=== PATIENT | female | born 1935 | race American Indian/Alaskan Native ===

== ENCOUNTER 2017-01-20 13:10 | Emergency (ER) | payer MEDICARE ==
[2017-01-20 13:57] LABS: Basophils % (Auto) 0.6 % (0.0-1.8); Eosinophils % (Auto) 4.3 % (0.0-4.3); Hematocrit 41.6 % (30.3-42.9); Hemoglobin 13.9 gm/dl (10.1-14.3); Mean Corpuscular HGB Conc 33 % (30-34); Mean Corpuscular Hemoglobin 33 pg (28-32); Mean Corpuscular Volume 99 fl (79-97); Platelet Count 153 K/mm3 (140-440); Red Blood Count 4.21 M/mm3 (3.65-5.03); Red Cell Distribution Width 13.3 % (13.2-15.2); White Blood Count 6.2 K/mm3 (4.5-11.0)
[2017-01-20 14:14] LABS: Anion Gap 17 mmol/L; BUN/Creatinine Ratio 13; Blood Urea Nitrogen 13 mg/dL (7-17); Calcium 9.7 mg/dL (8.4-10.2); Carbon Dioxide 24 mmol/L (22-30); Chloride 101.6 mmol/L (98-107); Glucose 127 mg/dL (65-100); Potassium 4.3 mmol/L (3.6-5.0); Sodium 138 mmol/L (137-145)
[2017-01-20 15:08] LABS: Bilirubin,Urine NEG (Negative); Blood,Urine SM (Negative); Ketones,Urine NEG (Negative); Leukocyte Esterase,Urine NEG (Negative); Mucus,Urine 1+ /HPF; Nitrite,Urine NEG (Negative); Protein,Urine <15 mg/dL mg/dL (Negative)
[2017-01-20] MEDS ORDERED: NORCO 5/325 PO ONE (15:25)
--- NOTE | 2017-01-20 15:45 | Emergency Department Report ---
HPI - General Chief Complaint: Weakness Time Seen by Provider: 01/20/17 14:08 - HPI HPI: This is an 81 year-old female presents to the emergency department, sent over by her PCP Dr. Piotr العراقي, for evaluation after a fall yesterday. The patient says that she was trying to feed her puppy when she lost her balance and fell over backwards. She landed on her backside but also says that she did hit her head. She thinks she might have lost consciousness for about 1 minute. Since that time she has had a headache and some pain to the buttocks. She was over at the primary care physician's office today and started feeling very dizzy. She has a past medical history of hypertension, hyperlipidemia, coronary artery disease with CABG 5 and one stent placed. 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 She denies any chest pain, shortness of breath, fever, nausea, vomiting. ED Past Medical Hx - Past Medical History Hx Hypertension: Yes Hx Heart Attack/AMI: Yes Hx Congestive Heart Failure: No Hx Deep Vein Thrombosis: No Hx Pulmonary Embolism: No Hx Arthritis: Yes Hx Asthma: No Hx COPD: Yes Hx Tuberculosis: No Hx HIV: No Additional medical history: angina, gout. cad - Surgical History Hx Coronary Stent: Yes Hx Open Heart Surgery: Yes (5 bypass) Hx Pacemaker: No Hx Internal Defibrillator: No Hx Cholecystectomy: Yes Hx Appendectomy: No Hx Breast Surgery: No Additional Surgical History: hysterectomy - Social History Smoking Status: Former Smoker Substance Use Type: Prescribed - Medications Home Medications: Home Medications Medication Instructions Recorded Confirmed Last Taken Type Carvedilol [Coreg] 6.25 mg PO QDAY 12/12/12 08/16/15 11/29/13 History Clopidogrel [Plavix] 75 mg PO QDAY 12/12/12 08/16/15 11/29/13 History Omeprazole [Prilosec] 20 mg PO QDAY 12/12/12 08/16/15 11/29/13 History Rosuvastatin (Nf) [Crestor] 10 mg PO QHS 12/12/12 08/16/15 11/28/13 History Aspirin [Aspirin BABY CHEW TAB] 81 mg PO DAILY 06/19/13 08/16/15 11/29/13 History Fluticasone/Salmeterol [Advair 1 puff IH BID #14 disk.w.dev 12/05/13 08/16/15 Unknown Rx Diskus 250-50 mcg] Ipratropium/Albuterol Sulfate 1 spray IH QID 30 Days aer.w.adap 12/05/13 Unknown Rx [Combivent Respimat] Levofloxacin [Levaquin TAB] 250 mg PO Q24HR #5 tablet 12/05/13 08/16/15 Unknown Rx Loratadine [Claritin] 10 mg PO QDAY #10 tablet 12/05/13 08/16/15 Unknown Rx Prednisone [predniSONE 10 mg 10 mg PO .TAPER #1 tab.ds.pk 12/05/13 08/16/15 Unknown Rx (6-Day Pack, 21 Tabs)] HYDROcodone/APAP 5-325 [[place] 1 each PO Q6HR PRN #14 tablet 11/13/14 08/16/15 Unknown Rx 5-325 mg TAB] Acetaminophen/Codeine [Tylenol 1 tab PO TID #21 tab 11/18/14 08/16/15 Unknown Rx /Codeine # 3 tab] ED Review of Systems ROS: Stated complaint: WEAKNESS Other details as noted in HPI Comment: All other systems reviewed and negative Constitutional: denies: chills, fever Eyes: denies: eye pain, eye discharge, vision change ENT: denies: ear pain, throat pain Respiratory: denies: cough, shortness of breath, wheezing Cardiovascular: denies: chest pain, palpitations Gastrointestinal: denies: abdominal pain, nausea, diarrhea Genitourinary: denies: urgency, dysuria, discharge Musculoskeletal: other (buttock/tailbone pain). denies: back pain Skin: denies: rash, lesions Neurological: headache, other (dizziness). denies: numbness Physical Exam - Physical Exam Vital Signs: Vital Signs 01/20/17 01/20/17 01/20/17 13:14 15:13 15:22 Temperature 97.6 F Pulse Rate 84 81 Respiratory 20 19 Rate Blood Pressure 96/64 O2 Sat by Pulse 97 Oximetry Physical Exam: GENERAL: The patient is well-developed well-nourished. HENT: Normocephalic. Atraumatic. Patient has moist mucous membranes. EYES: Extraocular motions are intact. Pupils equal reactive to light bilaterally. There is fatigable horizontal nystagmus. NECK: Supple. Trachea is midline. CHEST/LUNGS: Clear to auscultation. There is no respiratory distress noted. HEART/CARDIOVASCULAR: Regular. There is no tachycardia. There is no murmur. ABDOMEN: Abdomen is soft, nontender. Patient has normal bowel sounds. There is no abdominal distention. SKIN: Skin is warm and dry. NEURO: The patient is awake, alert, and oriented. The patient is cooperative. The patient has no focal neurologic deficits. The patient has normal speech. Cranial nerves II through XII grossly intact. No pronator drift. GCS of 15. MUSCULOSKELETAL: There is no tenderness or deformity. There is no limitation range of motion. There is no evidence of acute injury. ED Course Vital Signs 01/20/17 01/20/17 01/20/17 13:14 15:13 15:22 Temperature 97.6 F Pulse Rate 84 81 Respiratory 20 19 Rate Blood Pressure 96/64 O2 Sat by Pulse 97 Oximetry - Consultations Consultation #1: I spoke to the [facility] and the patient was accepted by Dr. Jan Perales in transfer to the emergency department. 01/20/17 17:55 ED Medical Decision Making - Lab Data Result diagrams: 01/20/17 13:45 01/20/17 13:45 - EKG Data -: EKG Interpreted by Or EKG shows normal: sinus rhythm, axis (LAD), intervals, QRS complexes (LVH), ST- T waves (T-wave inversions to the anterior leads V2-V4) - EKG Data When compared to previous EKG there are: no significant change Interpretation: unchanged when compared t (08/2015) - Radiology Data Radiology results: report reviewed EXAM: CT CERVICAL SPINE WO CON HISTORY: Fall, neck pain TECHNIQUE: CT cervical spine with reconstructions PRIORS: None. FINDINGS: Vertebral bodies demonstrate normal height and alignment. There is disc space narrowing at C3-C4 and C4-C5. There is disc space narrowing with small marginal osteophyte C6-C7 the facet joints demonstrate normal alignment. The spinous processes are intact. Craniocervical junction is unremarkable. C1 and C2 are intact. IMPRESSION: Degenerative disc disease C3-C4, C4-C5 and C6-C7 No acute traumatic abnormality identified Transcribed By: PETERSON Dictated By: YON SHAW MD Electronically Authenticated By: YON SHAW MD Signed Date/Time: 01/20/17 1311 EXAM: CT HEAD/BRAIN WO CON HISTORY: fall, head trauma, LOC TECHNIQUE: CT head without contrast PRIORS: None. FINDINGS: There is focal increased density along the anterior inferior aspect of the falx consistent with a small and peripheral solution subdural hematoma measuring 0.27 centimeters in transverse diameter. There is an additional small focus of increased density along the posterior falx toward the left measuring 0.34 centimeters in transverse diameter. No acute parenchymal hemorrhage identified. No evidence for midline shift or mass effect. Patchy hypodensities in the supratentorial white matter likely reflect chronic small vessel ischemic changes. The bony calvarium is intact. IMPRESSION: Small frontal and posterior acute subdural parafalcine hematomas Chronic small vessel ischemic changes Transcribed By: PETERSON Dictated By: YON SHAW MD Electronically Authenticated By: YON SHAW MD Signed Date/Time: 01/20/17 1306 - Medical Decision Making Patient presents for evaluation after a fall last night with some loss of consciousness and subsequent continued headache and some dizziness. Labs and EKG have been mostly unremarkable and do not show etiology of her symptoms. However CT of the brain shows a small frontal and posterior acute subdural parafalcine hematoma. For this reason the patient needs to be transferred somewhere there is a neurosurgical service and has been accepted for admission by Dr. Jan Perales to [facility]. The patient and family have been updated about the labs, imaging results and plan for transfer and they understand and agree. - Differential Diagnosis brain bleed, skull fracture, concussion, contusion Critical Care Time: No Critical care attestation.: If time is entered above; I have spent that time in minutes in the direct care of this critically ill patient, excluding procedure time. ED Disposition Clinical Impression: Acute subdural hematoma Fall Qualifiers: Encounter type: initial encounter Qualified Code(s): W19.XXXA - Unspecified fall, initial encounter Hypertension Qualifiers: Hypertension type: essential hypertension Qualified Code(s): I10 - Essential ( primary) hypertension Disposition: DC/TX-70 ANOTHER TYPE HLTHCARE Is pt being admited?: Yes Condition: Stable Instructions: Hypertension (ED) Referrals: SUSAN PAGE MD [Primary Care Provider] - 3-5 Days Time of Disposition: 18:00
--- NOTE | 2017-01-20 17:09 | Cat Scan Report ---
FINAL REPORT EXAM: CT HEAD/BRAIN WO CON HISTORY: fall, head trauma, LOC TECHNIQUE: CT head without contrast PRIORS: None. FINDINGS: There is focal increased density along the anterior inferior aspect of the falx consistent with a small and peripheral solution subdural hematoma measuring 0.27 centimeters in transverse diameter. There is an additional small focus of increased density along the posterior falx toward the left measuring 0.34 centimeters in transverse diameter. No acute parenchymal hemorrhage identified. No evidence for midline shift or mass effect. Patchy hypodensities in the supratentorial white matter likely reflect chronic small vessel ischemic changes. The bony calvarium is intact. IMPRESSION: Small frontal and posterior acute subdural parafalcine hematomas Chronic small vessel ischemic changes
--- NOTE | 2017-01-20 17:14 | Cat Scan Report ---
FINAL REPORT EXAM: CT CERVICAL SPINE WO CON HISTORY: Fall, neck pain TECHNIQUE: CT cervical spine with reconstructions PRIORS: None. FINDINGS: Vertebral bodies demonstrate normal height and alignment. There is disc space narrowing at C3-C4 and C4-C5. There is disc space narrowing with small marginal osteophyte C6-C7 the facet joints demonstrate normal alignment. The spinous processes are intact. Craniocervical junction is unremarkable. C1 and C2 are intact. IMPRESSION: Degenerative disc disease C3-C4, C4-C5 and C6-C7 No acute traumatic abnormality identified
--- NOTE | 2017-01-20 17:24 | Cat Scan Report ---
FINAL REPORT EXAM: CT ABDOMEN PELVIS WO CON HISTORY: Fall, buttock and pelvic pain TECHNIQUE: CT abdomen and pelvis without contrast PRIORS: None. FINDINGS: And noted are coarse linear opacities with multiple cystic changes largely in a peripheral distribution present both lower lobes. Evaluation for solid organ injury is limited due to lack of intravenous contrast No focal abnormality identified within the liver parenchyma. The spleen demonstrates normal size and attenuation. No pancreatic abnormalities seen. Kidneys demonstrate no evidence of hydronephrosis or nephrolithiasis. No ureteral calculus identified. The adrenal glands are unremarkable. Abdominal aorta is normal in caliber. No pathologically enlarged lymph nodes are identified. No signs of free fluid or free air No evidence of small bowel dilatation. Small umbilical hernia noted. Hypertrophic bony changes noted posterior lumbar spine with evidence for prior bone graft. Multilevel degenerative disc changes noted throughout. No acute traumatic skeletal findings identified No pericolonic inflammatory changes are identified. There is an ovoid mixed density structure seen posterior pelvis most likely ovarian in origin 3.1 x 4.1 centimeters. There is small amount of fatty density present. The urinary bladder is unremarkable. 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 Possible 4 centimeter dermoid within the right lower pelvis On noncontrast CT no acute abnormality otherwise identified
--- NOTE | 2017-01-20 17:27 | XRay Report ---
FINAL REPORT EXAM: XR PELVIS 1-2V HISTORY: trauma hip pain TECHNIQUE: AP pelvis PRIORS: None. FINDINGS: No acute fractures are identified. The pubic symphysis and SI joints are intact. No evidence of hip fracture or dislocation. No bony lesions are identified. IMPRESSION: Negative no acute abnormalities seen
--- NOTE | 2017-01-20 17:30 | XRay Report ---
FINAL REPORT EXAM: XR CHEST 1V AP HISTORY: trauma back pain and TECHNIQUE: upright single view chest PRIORS: None. FINDINGS: Cardiac and mediastinal contours are unremarkable. Pulmonary fibrotic interstitial changes noted at the lung bases. Sternotomy wires and surgical clips are present. No pleural fluid collection seen. Pulmonary vasculature is unremarkable. IMPRESSION: Fibrotic interstitial changes at the lung bases Evidence for prior cardiac surgery Otherwise no acute findings
[2017-01-20 18:53] VITALS: BP 153/94
== END 2017-01-20 19:45 | disposition other institution (70) ==
LOC: ED 13:10
DX: S06.5X1A Traumatic subdural hemorrhage with loss of consciousness of 30 minutes or less, initial encounter (principal); I10 Essential (primary) hypertension; I25.2 Old myocardial infarction; M19.90 Unspecified osteoarthritis, unspecified site; J44.9 Chronic obstructive pulmonary disease, unspecified; Z88.0 Allergy status to penicillin; Z88.1 Allergy status to other antibiotic agents; Z88.2 Allergy status to sulfonamides; Z95.818 Presence of other cardiac implants and grafts; W17.89XA Other fall from one level to another, initial encounter; Y93.89 Activity, other specified; Y92.89 Other specified places as the place of occurrence of the external cause; Y99.8 Other external cause status
CPT/HCPCS: 36415; 70450; 71010; 72125; 72170; 74176; 80048; 81001; 85025; 93005; 93010

== ENCOUNTER 2018-02-21 15:52 | Emergency (ER) | payer MEDICARE ==
[2018-02-21] MEDS ORDERED: ASPIRIN PO ONE (16:12)
[2018-02-21 16:39] LABS: Basophils # (Auto) 0.1 K/mm3 (0.0-0.1); Eosinophils # (Auto) 0.2 K/mm3 (0.0-0.4); Eosinophils % (Auto) 6.2 % (0.0-4.3); Hematocrit 42.2 % (30.3-42.9); Hemoglobin 14.4 gm/dl (10.1-14.3); Lymphocytes # (Auto) 1.3 K/mm3 (1.2-5.4); Mean Corpuscular HGB Conc 34 % (30-34); Mean Corpuscular Volume 98 fl (79-97); Monocytes # (Auto) 0.4 K/mm3 (0.0-0.8); Monocytes % (Auto) 10.4 % (0.0-7.3); Platelet Count 155 K/mm3 (140-440); Red Blood Count 4.31 M/mm3 (3.65-5.03); Red Cell Distribution Width 13.9 % (13.2-15.2)
[2018-02-21 17:16] LABS: BUN/Creatinine Ratio 14; Blood Urea Nitrogen 11 mg/dL (7-17); Calcium 9.5 mg/dL (8.4-10.2); Hemolysis Index 12
[2018-02-21] MEDS ORDERED: NACL 0.9% 1000 ML 1,000 ML IV ONE (18:50)
--- NOTE | 2018-02-21 20:29 | XRay Report ---
FINAL REPORT EXAM: XR ABD SERIES W CXR 1V HISTORY: left upper flanl pain COMPARISON: October 2017 chest x-ray. CT abdomen pelvis January 2017. FINDINGS:: Single frontal view of the chest demonstrates heart to be mildly enlarged similar prior s tudy. Prior median sternotomy.. Hazy interstitial densities at the lung bases progressed from prior s tudy. Some this is on a chronic basis related to fibrosis. Mild superimposed edema or pneumonia is no t excluded. No pneumothorax. Supine and upright AP views of the abdomen were obtained. No gross free air. Nonspecific bowel gas pattern. Moderate stool in the colon. No gross pathological calcifications . No mehul free air. IMPRESSION:: Slight progression patchy interstitial densities and linear densities at the lung bases. This may ref lect atelectasis, pneumonia, or edema superimposed are chronic chronic changes of fibrosis at the amy g bases. Nonspecific bowel gas pattern. Moderate stool in the colon.
[2018-02-21] MEDS ORDERED: ULTRAM PO ONE (21:16)
--- NOTE | 2018-02-21 22:46 | Nuclear Medicine Report ---
FINAL REPORT EXAM: NM LUNG SCAN PERF/VENT HISTORY: left upper flank, pleuritic pain with elevated ddi COMPARISON: February 21, 2018. TECHNIQUE: 5 millicuries technetium 99 M MAA administered by IV. 15 millicurie xenon 133 administere d by ventilation. FINDINGS: Relatively homogeneous uptake of tracer in both the ventilation and perfusion portions of the exam. N o mismatched defect. IMPRESSION: Low probability exam for pulmonary embolus.
[2018-02-21 23:17] VITALS: BP 158/76
[2018-02-21 23:32] LABS: Bacteria,Urine 2+ /HPF (Negative); Bilirubin,Urine NEG (Negative); Blood,Urine NEG (Negative); Color,Urine Amber (Yellow); Hyaline Casts,Urine 6 /LPF; Mucus,Urine FEW /HPF; Protein,Urine <15 mg/dL mg/dL (Negative)
--- NOTE | 2018-02-22 | Emergency Department Report ---
ED General Adult HPI - General Chief complaint: Back Pain/Injury Stated complaint: CHANTE/BACK PAIN Time Seen by Provider: 02/21/18 18:43 Source: patient, EMS Mode of arrival: Wheelchair Limitations: No Limitations - History of Present Illness Initial comments: Patient is a 2-year-old asthmatic female who is presented with left flank pain for the past 4 days. Patient states that the pain is constant and hurts worse with movement. Patient denies any falls. Patient has a very mild nonproductive cough several weeks ago however this is resolved. Patient today for her flank pain took nitroglycerin as well as Tessalon cough pills in attempt to make her pain go away. After taking nitroglycerin Tessalon patient did regain to have some dizziness. Patient denies any nausea vomiting fevers chills, cough cold or congestion dysuria or urinary frequency or chest pain. Severity scale (0 -10): 0 - Related Data Home Medications Medication Instructions Recorded Confirmed Last Taken Carvedilol [Coreg] 6.25 mg PO QDAY 12/12/12 10/18/17 10/17/17 09:00 Clopidogrel [Plavix] 75 mg PO QDAY 12/12/12 10/18/17 11/29/13 Omeprazole [Prilosec] 20 mg PO QDAY 12/12/12 10/18/17 10/17/17 09:00 Rosuvastatin (Nf) [Crestor] 10 mg PO QHS 12/12/12 10/18/17 10/17/17 19:00 Aspirin [Aspirin BABY CHEW TAB] 81 mg PO DAILY 06/19/13 10/18/17 10/17/17 09:00 Previous Rx's Medication Instructions Recorded Last Taken Type Ipratropium/Albuterol Sulfate 1 spray IH QID 30 Days aer.w.adap 12/05/13 Unknown Rx [Combivent Respimat] Loratadine [Claritin] 10 mg PO QDAY #10 tablet 12/05/13 10/17/17 09:00 Rx Prednisone [predniSONE 10 mg 10 mg PO .TAPER #1 tab.ds.pk 12/05/13 10/17/17 09:00 Rx (6-Day Pack, 21 Tabs)] Acetaminophen/Codeine [Tylenol 1 tab PO TID #21 tab 11/18/14 10/17/17 09:00 Rx /Codeine # 3 tab] Fluticasone/Salmeterol [Advair 1 puff IH BID #1 disk.w.dev 10/20/17 Unknown Rx Diskus 250-50 mcg] Ciprofloxacin HCl [Cipro] 500 mg PO BID #14 tablet 02/22/18 Unknown Rx traMADol [Ultram] 50 mg PO Q6HR PRN #10 tablet 02/22/18 Unknown Rx Allergies Allergy/AdvReac Type Severity Reaction Status Date / Time Penicillins Allergy Severe EVRYTHING Verified 08/16/15 12:22 SWELLS Sulfa (Sulfonamide Allergy Mild Itching Verified 08/16/15 12:22 Antibiotics) azithromycin [From Zithromax] Allergy Itching Verified 08/16/15 12:22 iv dye Allergy Unknown Uncoded 08/16/15 12:22 ED Review of Systems ROS: Stated complaint: CHANTE/BACK PAIN Other details as noted in HPI Comment: All other systems reviewed and negative ED Past Medical Hx - Past Medical History Hx Hypertension: Yes Hx Heart Attack/AMI: Yes Hx Congestive Heart Failure: No Hx Deep Vein Thrombosis: No Hx Pulmonary Embolism: No Hx Arthritis: Yes Hx Asthma: No Hx COPD: Yes Hx Tuberculosis: No Hx HIV: No Additional medical history: angina, gout. cad - Surgical History Hx Coronary Stent: Yes Hx Open Heart Surgery: Yes (5 bypass) Hx Pacemaker: No Hx Internal Defibrillator: No Hx Cholecystectomy: Yes Hx Appendectomy: No Hx Breast Surgery: No Additional Surgical History: hysterectomy - Social History Smoking Status: Unknown if ever smoked Substance Use Type: None - Medications Home Medications: Home Medications Medication Instructions Recorded Confirmed Last Taken Type Carvedilol [Coreg] 6.25 mg PO QDAY 12/12/12 10/18/17 10/17/17 09:00 History Clopidogrel [Plavix] 75 mg PO QDAY 12/12/12 10/18/17 11/29/13 History Omeprazole [Prilosec] 20 mg PO QDAY 12/12/12 10/18/17 10/17/17 09:00 History Rosuvastatin (Nf) [Crestor] 10 mg PO QHS 12/12/12 10/18/17 10/17/17 19:00 History Aspirin [Aspirin BABY CHEW TAB] 81 mg PO DAILY 06/19/13 10/18/17 10/17/17 09:00 History Ipratropium/Albuterol Sulfate 1 spray IH QID 30 Days aer.w.adap 12/05/13 10/18/17 Unknown Rx [Combivent Respimat] Loratadine [Claritin] 10 mg PO QDAY #10 tablet 12/05/13 10/18/17 10/17/17 09:00 Rx Prednisone [predniSONE 10 mg 10 mg PO .TAPER #1 tab.ds.pk 12/05/13 10/18/17 10/17/17 09:00 Rx (6-Day Pack, 21 Tabs)] Acetaminophen/Codeine [Tylenol 1 tab PO TID #21 tab 11/18/14 10/18/17 10/17/17 09:00 Rx /Codeine # 3 tab] Fluticasone/Salmeterol [Advair 1 puff IH BID #1 disk.w.dev 10/20/17 Unknown Rx Diskus 250-50 mcg] Ciprofloxacin HCl [Cipro] 500 mg PO BID #14 tablet 02/22/18 Unknown Rx traMADol [Ultram] 50 mg PO Q6HR PRN #10 tablet 02/22/18 Unknown Rx ED Physical Exam - General Limitations: No Limitations General appearance: alert, in no apparent distress - Head Head exam: Present: atraumatic, normocephalic - Eye Eye exam: Present: normal appearance - ENT ENT exam: Present: mucous membranes moist - Neck Neck exam: Present: normal inspection - Respiratory Respiratory exam: Present: normal lung sounds bilaterally. Absent: respiratory distress, wheezes, rales, rhonchi - Cardiovascular Cardiovascular Exam: Present: regular rate, normal rhythm. Absent: systolic murmur, diastolic murmur, rubs, gallop - GI/Abdominal GI/Abdominal exam: Present: soft, normal bowel sounds - Extremities Exam Extremities exam: Present: normal inspection - Back Exam Back exam: Present: normal inspection, tenderness, CVA tenderness (L) - Neurological Exam Neurological exam: Present: alert, oriented X3 - Psychiatric Psychiatric exam: Present: normal affect, normal mood - Skin Skin exam: Present: warm, dry, intact, normal color. Absent: rash ED Course Vital Signs 02/21/18 02/21/18 02/21/18 16:01 20:25 23:16 Temperature 97.8 F 98.3 F Pulse Rate 42 L 81 74 Respiratory 16 19 18 Rate Blood Pressure 82/49 Blood Pressure 136/74 158/76 [Left] O2 Sat by Pulse 96 99 99 Oximetry 02/21/18 23:21 Temperature Pulse Rate Respiratory 18 Rate Blood Pressure Blood Pressure [Left] O2 Sat by Pulse 99 Oximetry ED Medical Decision Making - Lab Data Result diagrams: 02/21/18 16:29 02/21/18 16:29 Lab Results 02/21/18 02/21/18 02/21/18 Range/Units 16:29 16:29 18:55 WBC 3.7 L (4.5-11.0) K/mm3 RBC 4.31 (3.65-5.03) M/mm3 Hgb 14.4 H (10.1-14.3) gm/dl Hct 42.2 (30.3-42.9) % MCV 98 H (79-97) fl MCH 34 H (28-32) pg MCHC 34 (30-34) % RDW 13.9 (13.2-15.2) % Plt Count 155 (140-440) K/mm3 Lymph % (Auto) 36.0 H (13.4-35.0) % Andrew % (Auto) 10.4 H (0.0-7.3) % Eos % (Auto) 6.2 H (0.0-4.3) % Baso % (Auto) 3.0 H (0.0-1.8) % Lymph # 1.3 (1.2-5.4) K/mm3 Andrew # 0.4 (0.0-0.8) K/mm3 Eos # 0.2 (0.0-0.4) K/mm3 Baso # 0.1 (0.0-0.1) K/mm3 Seg Neutrophils % 44.4 (40.0-70.0) % Seg Neutrophils # 1.6 L (1.8-7.7) K/mm3 D-Dimer 384.24 H (0-234) ng/mlDDU Sodium 135 L (137-145) mmol/L Potassium 4.0 (3.6-5.0) mmol/L Chloride 103.0 (98-107) mmol/L Carbon Dioxide 22 (22-30) mmol/L Anion Gap 14 mmol/L BUN 11 (7-17) mg/dL Creatinine 0.8 (0.7-1.2) mg/dL Estimated GFR > 60 ml/min BUN/Creatinine Ratio 14 % Glucose 122 H (65-100) mg/dL Calcium 9.5 (8.4-10.2) mg/dL Troponin T < 0.010 (0.00-0.029) ng/mL Urine Color (Yellow) Urine Turbidity (Clear) Urine pH (5.0-7.0) Ur Specific [place] (1.003-1.030) Urine Protein (Negative) mg/dL Urine Glucose (UA) (Negative) mg/dL Urine Ketones (Negative) mg/dL Urine Blood (Negative) Urine Nitrite (Negative) Urine Bilirubin (Negative) Urine Urobilinogen (<2.0) mg/dL Ur Leukocyte Esterase (Negative) Urine WBC (Auto) (0.0-6.0) /HPF Urine RBC (Auto) (0.0-6.0) /HPF U Epithel Cells (Auto) (0-13.0) /HPF Urine Bacteria (Auto) (Negative) /HPF Hyaline Casts /LPF Urine Mucus /HPF 02/21/18 02/21/18 02/21/18 Range/Units 19:15 20:51 22:49 WBC (4.5-11.0) K/mm3 RBC (3.65-5.03) M/mm3 Hgb (10.1-14.3) gm/dl Hct (30.3-42.9) % MCV (79-97) fl MCH (28-32) pg MCHC (30-34) % RDW (13.2-15.2) % Plt Count (140-440) K/mm3 Lymph % (Auto) (13.4-35.0) % Andrew % (Auto) (0.0-7.3) % Eos % (Auto) (0.0-4.3) % Baso % (Auto) (0.0-1.8) % Lymph # (1.2-5.4) K/mm3 Andrew # (0.0-0.8) K/mm3 Eos # (0.0-0.4) K/mm3 Baso # (0.0-0.1) K/mm3 Seg Neutrophils % (40.0-70.0) % Seg Neutrophils # (1.8-7.7) K/mm3 D-Dimer (0-234) ng/mlDDU Sodium (137-145) mmol/L Potassium (3.6-5.0) mmol/L Chloride (98-107) mmol/L Carbon Dioxide (22-30) mmol/L Anion Gap mmol/L BUN (7-17) mg/dL Creatinine (0.7-1.2) mg/dL Estimated GFR ml/min BUN/Creatinine Ratio % Glucose (65-100) mg/dL Calcium (8.4-10.2) mg/dL Troponin T < 0.010 < 0.010 (0.00-0.029) ng/mL Urine Color Judi (Yellow) Urine Turbidity Slightly-cloudy (Clear) Urine pH 5.0 (5.0-7.0) Ur Specific [place] 1.017 (1.003-1.030) Urine Protein <15 mg/dl (Negative) mg/dL Urine Glucose (UA) Neg (Negative) mg/dL Urine Ketones Neg (Negative) mg/dL Urine Blood Neg (Negative) Urine Nitrite Neg (Negative) Urine Bilirubin Neg (Negative) Urine Urobilinogen 4.0 (<2.0) mg/dL Ur Leukocyte Esterase Sm (Negative) Urine WBC (Auto) 23.0 H (0.0-6.0) /HPF Urine RBC (Auto) 20.0 (0.0-6.0) /HPF U Epithel Cells (Auto) 4.0 (0-13.0) /HPF Urine Bacteria (Auto) 2+ (Negative) /HPF Hyaline Casts 6 /LPF Urine Mucus Few /HPF - EKG Data -: EKG Interpreted by Ct - EKG Data 02/21/18 23:58 EKG shows a sinus rhythm with a rate of 83. The axis is normal and intervals are normal as well. Patient has no evidence of ST segment elevation or depression over she does have anterior T-wave inversions. Patient's EKG is interpreted at 1620 - Radiology Data Chest x-ray shows chronic fibrosis is slightly worse from previous x-rays. VQ scan is low probability for PE - Medical Decision Making Patient initially was hypotensive however this resolved on its own. Patient likely hypotensive from an inappropriate use of nitroglycerin. Patient's urinalysis was positive for a urinary tract infection. No other source of patient's pain could be found. Patient will be started on antibiotics will be discharged home. Critical care attestation.: If time is entered above; I have spent that time in minutes in the direct care of this critically ill patient, excluding procedure time. ED Disposition Clinical Impression: UTI (urinary tract infection) Qualifiers: Urinary tract infection type: acute cystitis Hematuria presence: with hematuria Qualified Code(s): N30.01 - Acute cystitis with hematuria Disposition: TO HOME OR SELFCARE Is pt being admited?: No Does the pt Need Aspirin: No Condition: Stable Instructions: Urinary Tract Infection in Women (ED) Referrals: PRIMARY CARE, [Primary Care Provider] - 3-5 Days Time of Disposition: 00:00
== END 2018-02-22 | disposition home or self-care (01) ==
LOC: ED 15:52
DX: N30.01 Acute cystitis with hematuria (principal); I10 Essential (primary) hypertension; I25.2 Old myocardial infarction; M19.90 Unspecified osteoarthritis, unspecified site; J44.9 Chronic obstructive pulmonary disease, unspecified
CPT/HCPCS: 36415; 74022; 78582; 80048; 81001; 84484; 85025; 85379; 93005; 93010; 99285; A9540; A9558

== ENCOUNTER 2018-04-26 09:00 | Inpatient (IN) | payer MEDICARE ==
[2018-04-26] MEDS ORDERED: NACL 0.9% 1000 ML 1,000 ML IV ONE (09:18)
[2018-04-26] MEDS ORDERED: BABY ASPIRIN PO ONE (09:18)
[2018-04-26] MEDS ORDERED: CARDIZEM IV ONE (09:19)
[2018-04-26] MEDS ORDERED: CARDIZEM ONE (09:20)
[2018-04-26] MEDS ORDERED: NACL 0.9% 1000 ML 1,000 ML ONE (09:21)
--- NOTE | 2018-04-26 09:34 | Emergency Department Report ---
ED General Adult HPI - General Stated complaint: CHEST PAIN Time Seen by Provider: 04/26/18 09:17 Source: patient, family - History of Present Illness Initial comments: Patient presents to the ED for Heart Palpitations and chest pain that started yesterday. The patient has a history of 5 vessel bypass and multiple stents. CP is substernal without radiation. The patient denies abdominal pain, shortness breath, or headache. Patient has a history of A. fib and takes medications daily for it -: Sudden Location: chest Radiation: non-radiation Severity scale (0 -10): 4 Quality: aching Consistency: constant Improves with: none Worsens with: none Associated Symptoms: denies other symptoms Treatments Prior to Arrival: none - Related Data Home Medications Medication Instructions Recorded Confirmed Last Taken Carvedilol [Coreg] 6.25 mg PO QDAY 12/12/12 10/18/17 10/17/17 09:00 Clopidogrel [Plavix] 75 mg PO QDAY 12/12/12 10/18/17 11/29/13 Omeprazole [Prilosec] 20 mg PO QDAY 12/12/12 10/18/17 10/17/17 09:00 Rosuvastatin (Nf) [Crestor] 10 mg PO QHS 12/12/12 10/18/17 10/17/17 19:00 Aspirin [Aspirin BABY CHEW TAB] 81 mg PO DAILY 06/19/13 10/18/17 10/17/17 09:00 Previous Rx's Medication Instructions Recorded Last Taken Type Ipratropium/Albuterol Sulfate 1 spray IH QID 30 Days aer.w.adap 12/05/13 Unknown Rx [Combivent Respimat] Loratadine [Claritin] 10 mg PO QDAY #10 tablet 12/05/13 10/17/17 09:00 Rx Prednisone [predniSONE 10 mg 10 mg PO .TAPER #1 tab.ds.pk 12/05/13 10/17/17 09:0 0 Rx (6-Day Pack, 21 Tabs)] Acetaminophen/Codeine [Tylenol 1 tab PO TID #21 tab 11/18/14 10/17/17 09:00 Rx /Codeine # 3 tab] Fluticasone/Salmeterol [Advair 1 puff IH BID #1 disk.w.dev 10/20/17 Unknown Rx Diskus 250-50 mcg] Ciprofloxacin HCl [Cipro] 500 mg PO BID #14 tablet 02/22/18 Unknown Rx traMADol [Ultram] 50 mg PO Q6HR PRN #10 tablet 02/22/18 Unknown Rx Allergies Allergy/AdvReac Type Severity Reaction Status Date / Time Penicillins Allergy Severe EVRYTHING Verified 08/16/15 12:22 SWELLS Sulfa (Sulfonamide Allergy Mild Itching Verified 08/16/15 12:22 Antibiotics) azithromycin [From Zithromax] Allergy Itching Verified 08/16/15 12:22 iv dye Allergy Unknown Uncoded 08/16/15 12:22 ED Review of Systems ROS: Stated complaint: CHEST PAIN Other details as noted in HPI Comment: All other systems reviewed and negative Constitutional: denies: chills, fever Eyes: denies: eye pain, eye discharge, vision change ENT: denies: ear pain, throat pain Respiratory: denies: cough, shortness of breath, wheezing Cardiovascular: chest pain, palpitations Endocrine: no symptoms reported Gastrointestinal: denies: abdominal pain, nausea, diarrhea Genitourinary: denies: urgency, dysuria, discharge Musculoskeletal: denies: back pain, joint swelling, arthralgia Skin: denies: rash, lesions Neurological: denies: headache, weakness, paresthesias Psychiatric: denies: anxiety, depression Hematological/Lymphatic: denies: easy bleeding, easy bruising ED Past Medical Hx - Past Medical History Hx Hypertension: Yes Hx Heart Attack/AMI: Yes Hx Congestive Heart Failure: No Hx Deep Vein Thrombosis: No Hx Pulmonary Embolism: No Hx Arthritis: Yes Hx Asthma: No Hx COPD: Yes Hx Tuberculosis: No Hx HIV: No Additional medical history: angina, gout. cad - Surgical History Hx Coronary Stent: Yes Hx Open Heart Surgery: Yes (5 bypass) Hx Pacemaker: No Hx Internal Defibrillator: No Hx Cholecystectomy: Yes Hx Appendectomy: No Hx Breast Surgery: No Additional Surgical History: hysterectomy - Social History Smoking Status: Unknown if ever smoked Substance Use Type: None - Medications Home Medications: Home Medications Medication Instructions Recorded Confirmed Last Taken Type Carvedilol [Coreg] 6.25 mg PO QDAY 12/12/12 10/18/17 10/17/17 09:00 History Clopidogrel [Plavix] 75 mg PO QDAY 12/12/12 10/18/17 11/29/13 History Omeprazole [Prilosec] 20 mg PO QDAY 12/12/12 10/18/17 10/17/17 09:00 History Rosuvastatin (Nf) [Crestor] 10 mg PO QHS 12/12/12 10/18/17 10/17/17 19:00 History Aspirin [Aspirin BABY CHEW TAB] 81 mg PO DAILY 06/19/13 10/18/17 10/17/17 09:00 History Ipratropium/Albuterol Sulfate 1 spray IH QID 30 Days aer.w.adap 12/05/13 10/18/17 Unknown Rx [Combivent Respimat] Loratadine [Claritin] 10 mg PO QDAY #10 tablet 12/05/13 10/18/17 10/17/17 09:00 Rx Prednisone [predniSONE 10 mg 10 mg PO .TAPER #1 tab.ds.pk 12/05/13 10/18/17 10/17/17 09:00 Rx (6-Day Pack, 21 Tabs)] Acetaminophen/Codeine [Tylenol 1 tab PO TID #21 tab 11/18/14 10/18/17 10/17/17 09:00 Rx /Codeine # 3 tab] Fluticasone/Salmeterol [Advair 1 puff IH BID #1 disk.w.dev 10/20/17 Unknown Rx Diskus 250-50 mcg] Ciprofloxacin HCl [Cipro] 500 mg PO BID #14 tablet 02/22/18 Unknown Rx traMADol [Ultram] 50 mg PO Q6HR PRN #10 tablet 02/22/18 Unknown Rx ED Physical Exam - General General appearance: alert, in no apparent distress - Head Head exam: Present: atraumatic, normocephalic - Eye Eye exam: Present: normal appearance, PERRL, EOMI - ENT ENT exam: Present: mucous membranes moist - Neck Neck exam: Present: normal inspection - Respiratory Respiratory exam: Present: normal lung sounds bilaterally. Absent: respiratory distress, wheezes, rales - Cardiovascular Cardiovascular Exam: Present: normal rhythm, tachycardia, irregular rhythm (irregularly irregular ). Absent: systolic murmur, diastolic murmur, rubs, gallop - GI/Abdominal GI/Abdominal exam: Present: soft, normal bowel sounds. Absent: distended, tenderness - Extremities Exam Extremities exam: Present: normal inspection - Back Exam Back exam: Present: normal inspection - Neurological Exam Neurological exam: Present: alert, oriented X3, CN II-XII intact. Absent: motor sensory deficit - Psychiatric Psychiatric exam: Present: normal affect, normal mood - Skin Skin exam: Present: warm, dry, intact, normal color. Absent: rash ED Course Vital Signs 04/26/18 04/26/18 04/26/18 09:18 09:35 09:45 Temperature 97.5 F L Pulse Rate 156 H 156 H 101 H Respiratory 10 L 18 Rate Blood Pressure 106/59 96/60 Blood Pressure 91/44 [Left] O2 Sat by Pulse 97 96 Oximetry 04/26/18 04/26/18 04/26/18 09:55 10:15 10:45 Temperature Pulse Rate 92 H 100 H Respiratory 18 19 Rate Blood Pressure Blood Pressure 95/55 110/74 [Left] O2 Sat by Pulse 96 98 97 Oximetry 04/26/18 11:15 Temperature Pulse Rate 118 H Respiratory 13 Rate Blood Pressure Blood Pressure 120/84 [Left] O2 Sat by Pulse 99 Oximetry ED Medical Decision Making - Lab Data Result diagrams: 04/26/18 09:25 04/26/18 09:26 Lab Results 04/26/18 04/26/18 04/26/18 Range/Units 09:25 09:26 09:26 WBC 3.7 L (4.5-11.0) K/mm3 RBC 4.15 (3.65-5.03) M/mm3 Hgb 13.8 (10.1-14.3) gm/dl Hct 41.0 (30.3-42.9) % MCV 99 H (79-97) fl MCH 33 H (28-32) pg MCHC 34 (30-34) % RDW 13.9 (13.2-15.2) % Plt Count 156 (140-440) K/mm3 Eos % (Auto) [employer] Seg Neutrophils % [employer] PT 14.5 (12.2-14.9) Sec. INR 1.06 (0.87-1.13) APTT 24.0 L (24.2-36.6) Sec. Sodium 139 (137-145) mmol/L Potassium 4.4 (3.6-5.0) mmol/L Chloride 105.9 (98-107) mmol/L Carbon Dioxide 26 (22-30) mmol/L Anion Gap 12 mmol/L BUN 12 (7-17) mg/dL Creatinine 0.7 (0.7-1.2) mg/dL Estimated GFR > 60 ml/min BUN/Creatinine Ratio 17 % Glucose 119 H (65-100) mg/dL Calcium 9.0 (8.4-10.2) mg/dL Total Bilirubin 0.70 (0.1-1.2) mg/dL AST 45 H (5-40) units/L ALT 26 (7-56) units/L Alkaline Phosphatase 168 H (35-129) units/L Troponin T < 0.010 (0.00-0.029) ng/mL NT-Pro-B Natriuret Pep (0-900) pg/mL Total Protein 7.8 (6.3-8.2) g/dL Albumin 2.8 L (3.9-5) g/dL Albumin/Globulin Ratio 0.6 % Lipase 11 L (13-60) units/L // Range/Units 09:26 WBC (4.5-11.0) K/mm3 RBC (3.65-5.03) M/mm3 Hgb (10.1-14.3) gm/dl Hct (30.3-42.9) % MCV (79-97) fl MCH (28-32) pg MCHC (30-34) % RDW (13.2-15.2) % Plt Count (140-440) K/mm3 Eos % (Auto) Seg Neutrophils % PT (12.2-14.9) Sec. INR (0.87-1.13) APTT (24.2-36.6) Sec. Sodium (137-145) mmol/L Potassium (3.6-5.0) mmol/L Chloride (98-107) mmol/L Carbon Dioxide (22-30) mmol/L Anion Gap mmol/L BUN (7-17) mg/dL Creatinine (0.7-1.2) mg/dL Estimated GFR ml/min BUN/Creatinine Ratio % Glucose (65-100) mg/dL Calcium (8.4-10.2) mg/dL Total Bilirubin (0.1-1.2) mg/dL AST (5-40) units/L ALT (7-56) units/L Alkaline Phosphatase (35-129) units/L Troponin T (0.00-0.029) ng/mL NT-Pro-B Natriuret Pep 59.35 (0-900) pg/mL Total Protein (6.3-8.2) g/dL Albumin (3.9-5) g/dL Albumin/Globulin Ratio % Lipase (13-60) units/L - EKG Data Rate: tachycardia (irregularly irregular) - Radiology Data Radiology results: report reviewed - Medical Decision Making IV bolus Cardizem at 10 mg given Heart rate decreased to 108 And then increase to 125 Second bolus of Cardizem at 10 mg has been discussed and is pending administration upon increase of blood pressure Critical Care Time: Yes Critical care time in (mins) excluding proc time.: 45 Critical care attestation.: If time is entered above; I have spent that time in minutes in the direct care of this critically ill patient, excluding procedure time. ED Disposition Clinical Impression: Afib, Chest pain Disposition: DC-09 OP ADMIT IP TO THIS HOSP Is pt being admited?: Yes Does the pt Need Aspirin: No Condition: Fair Instructions: Chest Pain (ED) Referrals: TADEO DONOVAN MD [Primary Care Provider] - 3-5 Days
[2018-04-26 09:45] LABS: Hemoglobin 13.8 gm/dl (10.1-14.3); Mean Corpuscular HGB Conc 34 % (30-34); Mean Corpuscular Volume 99 fl (79-97); Platelet Count 156 K/mm3 (140-440); Red Blood Count 4.15 M/mm3 (3.65-5.03); Red Cell Distribution Width 13.9 % (13.2-15.2)
[2018-04-26 09:57] LABS: INR 1.06 (0.87-1.13)
--- NOTE | 2018-04-26 10:02 | XRay Report ---
AP CHEST: HISTORY: chest pain Status post CABG. Mild pulmonary venous congestion is suspected. Mild chronic interstitial changes are also noted. No evidence for consolidation, large pleural effusion or pneumothorax. Heart size is within normal limits. IMPRESSION: Mild pulmonary venous congestion.
[2018-04-26 10:04] LABS: Alanine Aminotransferase 26 units/L (7-56); Albumin 2.8 g/dL (3.9-5); BUN/Creatinine Ratio 17; Blood Urea Nitrogen 12 mg/dL (7-17); Hemolysis Index 47
[2018-04-26 11:40] LABS: Total Cells Counted 100
[2018-04-26 11:41] LABS: Large Platelets Rare; Platelet Estimate Consistent w Auto; RBC Morphology Normal
[2018-04-26 12:30] LABS: Bacteria,Urine 2+ /HPF (Negative); Bilirubin,Urine NEG (Negative); Blood,Urine LG (Negative); Hyaline Casts,Urine 11 /LPF; Mucus,Urine 1+ /HPF
[2018-04-26] MEDS ORDERED: MORPHINE IV ONE (12:30)
[2018-04-26 12:31] LABS: RBC,Urine > 182.0 /HPF (0.0-6.0)
[2018-04-26 12:32] LABS: Color,Urine Yellow (Yellow)
[2018-04-26] MEDS ORDERED: MORPHINE ONE (12:35)
[2018-04-26] MEDS ORDERED: CARDIZEM 100 MG in D5W 80 ML IV SCH (18:00)
--- NOTE | 2018-04-26 21:03 | Event Note ---
Date: 04/26/18 See dictated history and physical in the reports A. fib with RVR Hypotension ESRD
[2018-04-26] MEDS ORDERED: DILAUDID IV PRN (21:20)
[2018-04-26] MEDS ORDERED: TYLENOL PO PRN (21:20)
[2018-04-26] MEDS ORDERED: ZOFRAN IV PRN (21:20)
[2018-04-26] MEDS ORDERED: SODIUM CHLORIDE FLUSH SYRINGE 10 ML IV PRN (21:20)
[2018-04-26] MEDS ORDERED: PERCOCET 5/325 PO PRN (21:20)
[2018-04-26] MEDS ORDERED: NON-FORMULARY (Omeprazole [Prilosec] 20 MG) PO SCH (21:30)
[2018-04-26] MEDS ORDERED: PROVENTIL IH PRN (21:55)
[2018-04-26] MEDS ORDERED: NON-FORMULARY (Fluticasone/Salmeterol [Advair Diskus 250-50 Mcg] 1 PUFF) IH SCH (22:00)
[2018-04-26] MEDS ORDERED: CARDIZEM CD PO SCH (22:00)
[2018-04-26] MEDS ORDERED: NON-FORMULARY (Ipratropium/Albuterol Sulfate [Combivent Respimat] 1 SPRAY) IH SCH (22:00)
[2018-04-26] MEDS ORDERED: NON-FORMULARY (Rosuvastatin (Nf) 10 MG) PO SCH (22:00)
[2018-04-26] MEDS ORDERED: LOVENOX SUB-Q SCH ×2 (22:00)
[2018-04-26] MEDS: SODIUM CHLORIDE FLUSH SYRINGE 10 ML IV SCH (23:10)
[2018-04-26] MEDS: NACL 0.9% 1000 ML 1,000 ML IV SCH (23:11)
[2018-04-26] MEDS: PLAVIX PO SCH (23:11)
[2018-04-26] MEDS: COREG PO SCH (23:12)
[2018-04-26] MEDS: PROTONIX PO SCH (23:17)
[2018-04-27] MEDS: DUONEB *Not for PRN Use IH SCH ×4 (02:35→21:23)
[2018-04-27 06:28] LABS: Hematocrit 39.3 % (30.3-42.9); Hemoglobin 13.1 gm/dl (10.1-14.3); Mean Corpuscular HGB Conc 33 % (30-34); Mean Corpuscular Volume 100 fl (79-97); Platelet Count 148 K/mm3 (140-440); Red Blood Count 3.93 M/mm3 (3.65-5.03); Red Cell Distribution Width 14.1 % (13.2-15.2)
[2018-04-27 06:48] LABS: Alanine Aminotransferase 21 units/L (7-56); Albumin 2.7 g/dL (3.9-5); BUN/Creatinine Ratio 18; Blood Urea Nitrogen 11 mg/dL (7-17); Hemolysis Index 19
--- NOTE | 2018-04-27 07:36 | History and Physical Report ---
CHIEF COMPLAINT: Palpitations and chest pain. HISTORY OF PRESENT ILLNESS: The patient is an 82-year-old female with multiple episodes of syncope in the past, hypertension, gastroesophageal reflux disease, and hyperlipidemia, presents with palpitations since yesterday and also chest pain. The patient has extensive history of coronary artery bypass graft and coronary artery disease. The patient has multiple stents. Chest pain is substernal without radiation. No diaphoresis. No shortness of breath. The patient feels palpitation for the last 24 hours. No syncope, no seizures. PAST MEDICAL HISTORY: As mentioned, significant for hypertension, severe coronary artery disease, gastroesophageal reflux disease, and hyperlipidemia. PAST SURGICAL HISTORY: Significant for coronary artery bypass graft. FAMILY HISTORY: Hypertension. SOCIAL HISTORY: Does not smoke. No alcohol, no recreational drugs. REVIEW OF SYSTEMS: Significant for palpitations and chest pain. Otherwise, review of systems negative. A 14-point review of systems done. CURRENT MEDICATIONS: On chart. PHYSICAL EXAMINATION: GENERAL: Elderly female, cooperative during examination. VITAL SIGNS: Blood pressure is 145/83, heart rate is 129, respiratory rate is 16, temperature is 97.5. HEENT: Unremarkable. Pupils equal and reactive. NECK: Supple, no lymphadenopathy, no thyromegaly. LUNGS: Clear to auscultation and percussion. Good air entry. CARDIOVASCULAR SYSTEM: S1, S2 heard. No gallop, no murmur, no rub. Apical impulse in left fifth intercostal space and midclavicular line. ABDOMEN: Soft and benign. No hepatosplenomegaly. No guarding, no rigidity. Hernial orifices are normal. EXTREMITIES: Good pedal pulses. No pedal edema. CENTRAL NERVOUS SYSTEM: Alert and oriented x 4, nonfocal exam. DIAGNOSTIC DATA: EKG shows sinus tachycardia, heart rate of 130 per minute consistent with SVT. LABORATORY DATA: Significant for white count of 3700, H and H are 13.8 and 41.0, platelet count is 156,000. Glucose is 119. A1c is 5.4. AST is 45, alkaline phosphatase is 168, albumin is 2.8. Urine RBCs more than 182. Chest x-ray shows mild pulmonary venous congestion. ASSESSMENT AND PLAN: 1. Supraventricular tachycardia consistent with atrial fibrillation with rapid ventricular response. The patient started on Cardizem drip and also Cardizem CD 120 mg once a day. Cardiology consult requested. Echocardiogram ordered. 2. Chest pain, rule out myocardial infarction. The patient had extensive workup for coronary artery disease. We will defer to Cardiology regarding Lexiscan and the necessity for the Lexiscan. [facility] consulted. 3. Hypertension. Continue Coreg 6.25 q. 12 hours. 4. Coronary artery disease. Continue Plavix and aspirin. 5. Chronic obstructive pulmonary disease. Continue Combivent. 6. Hyperlipidemia. Continue statins. 7. Gastroesophageal reflux disease. Continue Prilosec or alternate PPIs as per the hospital P and T committee. 8. Deep venous thrombosis prophylaxis, Lovenox 40 mg subcutaneous daily. JOB# [id number] VSM/NTS
[2018-04-27] MEDS: PULMICORT IH SCH ×2 (08:27→21:23)
[2018-04-27] MEDS: BROVANA NEBU IH SCH ×2 (08:27→21:23)
[2018-04-27 10:04] LABS: Platelet Estimate Consistent w Auto; RBC Morphology Normal; Total Cells Counted 100
--- NOTE | 2018-04-27 10:10 | Consultation ---
History of Present Illness Consult date: 04/27/18 Consult reason: atrial fibrillation History of present illness: Patient is an 82 year old woman with a history of coronary artery disease with 3 vessel coronary artery bypass surgery in 1999. In 2009, cardiac catheterization revealed all 3 bypass grafts to be patent, with left ventricular ejection fraction normal at 60%. An echocardiogram in 2012 reported a left ventricle ejection fraction maintained at 60%. She had a normal persantine thallium stress test in 2016. Co-morbidities includes chronic lung disease, hypertension and diabetes. She presents to the hospital with palpitations, found to be in rapid atrial fibrillation. This was treated with intravenous Diltiazem. She has since reverted to a stable sinus rhythm on telemetry. Patient denies chest pain and unusual shortness of breath. Medications and Allergies Allergies Allergy/AdvReac Type Severity Reaction Status Date / Time Penicillins Allergy Severe EVRYTHING Verified 08/16/15 12:22 SWELLS Sulfa (Sulfonamide Allergy Mild Itching Verified 08/16/15 12:22 Antibiotics) azithromycin [From Zithromax] Allergy Itching Verified 08/16/15 12:22 iv dye Allergy Unknown Uncoded 08/16/15 12:22 Home Medications Medication Instructions Recorded Confirmed Last Taken Type Carvedilol [Coreg] 3.125 mg PO QDAY 12/12/12 04/26/18 10/17/17 09:00 History Clopidogrel [Plavix] 75 mg PO QDAY 12/12/12 04/26/18 11/29/13 History Omeprazole [Prilosec] 20 mg PO QDAY 12/12/12 04/26/18 10/17/17 09:00 History Rosuvastatin (Nf) [Crestor] 10 mg PO QHS 12/12/12 04/26/18 10/17/17 19:00 His tory Aspirin [Aspirin BABY CHEW TAB] 81 mg PO DAILY 06/19/13 04/26/18 10/17/17 09:00 History Ipratropium/Albuterol Sulfate 1 spray IH QID 30 Days aer.w.adap 12/05/13 04/26/18 Unknown Rx [Combivent Respimat] Fluticasone/Salmeterol [Advair 1 puff IH BID #1 disk.w.dev 10/20/17 04/26/18 Unk nown Rx Diskus 250-50 mcg] Active Meds: Active Medications Acetaminophen (Tylenol) 650 mg PO Q4H PRN PRN Reason: Pain MILD(1-3)/Fever >100.5/BENNETT Albuterol (Proventil) 2.5 mg IH Q3HRT PRN PRN Reason: Shortness Of Breath Albuterol/Ipratropium (Duoneb *Not For Prn Use*) 1 ampul IH Q6HRT [facility] Last Admin: 04/27/18 08:31 Dose: 1 ampul Documented by: Arformoterol Tartrate (Brovana Nebu) 15 mcg IH Q12HRT [facility] Last Admin: 04/27/18 08:27 Dose: 15 mcg Documented by: Aspirin (Baby Aspirin) 81 mg PO DAILY [facility] Atorvastatin Calcium (Lipitor) 20 mg PO QHS [facility] Last Admin: 04/26/18 23:12 Dose: 20 mg Documented by: Budesonide (Pulmicort) 0.5 mg IH Q12HRT [facility] Last Admin: 04/27/18 08:27 Dose: 0.5 mg Documented by: Carvedilol (Coreg) 3.125 mg PO QDAY [facility] Last Admin: 04/26/18 23:12 Dose: 3.125 mg Documented by: Clopidogrel Bisulfate (Plavix) 75 mg PO QDAY [facility] Last Admin: 04/26/18 23:11 Dose: 75 mg Documented by: Diltiazem HCl (Cardizem Cd) 120 mg PO QDAY [facility] Last Admin: 04/26/18 23:17 Dose: Not Given Documented by: Enoxaparin Sodium (Lovenox) 40 mg SUB-Q QDAY@2200 [facility] Last Admin: 04/26/18 23:12 Dose: 40 mg Documented by: Hydromorphone HCl (Dilaudid) 0.5 mg IV Q3H PRN PRN Reason: Pain , Severe (7-10) Diltiazem HCl 100 mg/ Dextrose 100 mls @ 5 mls/hr IV DIRECT [facility]; Protocol Last Admin: 04/26/18 23:10 Dose: 5 mg/hr, 5 mls/hr Documented by: Sodium Chloride (Nacl 0.9% 1000 Ml) 1,000 mls @ 75 mls/hr IV DIRECT [facility] Last Admin: 04/26/18 23:11 Dose: 75 mls/hr Documented by: Ondansetron HCl (Zofran) 4 mg IV Q8H PRN PRN Reason: Nausea And Vomiting Oxycodone/Acetaminophen (Percocet 5/325) 1 tab PO Q6H PRN PRN Reason: Pain, Moderate (4-6) Pantoprazole Sodium (Protonix) 20 mg PO QDAY [facility] Last Admin: 04/26/18 23:17 Dose: 20 mg Documented by: Sodium Chloride (Sodium Chloride Flush Syringe 10 Ml) 10 ml IV BID [facility] Last Admin: 04/26/18 23:10 Dose: 10 ml Documented by: Sodium Chloride (Sodium Chloride Flush Syringe 10 Ml) 10 ml IV PRN PRN PRN Reason: LINE FLUSH Physical Examination Vital Signs Temp Pulse Resp BP Pulse Ox 97.5 F L 156 H 10 L 106/59 97 04/26/18 09:18 04/26/18 09:18 04/26/18 09:18 04/26/18 09:18 04/26/18 09:18 General appearance: no acute distress HEENT: Positive: PERRL Cardiac: Positive: Reg Rate and Rhythm Lungs: Positive: Decreased Breath Sounds Results 04/27/18 05:29 04/27/18 05:29 Cardiac Enzymes 04/26/18 04/27/18 Range/Units 09:26 05:29 AST 45 H 33 (5-40) units/L CBC 04/26/18 04/27/18 Range/Units 09:25 05:29 WBC 3.7 L 4.6 (4.5-11.0) K/mm3 RBC 4.15 3.93 (3.65-5.03) M/mm3 Hgb 13.8 13.1 (10.1-14.3) gm/dl Hct 41.0 39.3 (30.3-42.9) % Plt Count 156 148 (140-440) K/mm3 Comprehensive Metabolic Panel 04/26/18 04/27/18 Range/Units 09:26 05:29 Sodium 141 (137-145) mmol/L Potassium 4.0 (3.6-5.0) mmol/L Chloride 109.7 H (98-107) mmol/L Carbon Dioxide 22 (22-30) mmol/L BUN 11 (7-17) mg/dL Creatinine 0.6 L (0.7-1.2) mg/dL Glucose 104 H (65-100) mg/dL Calcium 9.0 (8.4-10.2) mg/dL AST 45 H 33 (5-40) units/L ALT 21 (7-56) units/L Alkaline Phosphatase 152 H (35-129) units/L Total Protein 6.7 (6.3-8.2) g/dL Albumin 2.7 L (3.9-5) g/dL Assessment and Plan New onset Afib reverted to sinus rhythm Hx of CAD with 3 vessel bypass surgery in 1999. LHC in 2009 revealed all 3 bypass grafts to be patent, with left ventricular ejection fraction normal at 60%. an echocardiogram in 2012 reported a left ventricle ejection fraction maintained at 60%. Normal persantine thallium stress test in 2016. Chronic lung disease Hypertension Diabetes Recommend: Check TSH and magnesium. Repeat 12 lead EKG. Continue Diltiazem for suppression of paroxysmal afib.
[2018-04-27] MEDS: PLAVIX PO SCH (12:26)
[2018-04-27] MEDS: COREG PO SCH (12:26)
[2018-04-27] MEDS: CARDIZEM CD PO SCH (12:26)
[2018-04-27] MEDS: PROTONIX PO SCH (12:26)
[2018-04-27] MEDS: BABY ASPIRIN PO SCH (12:27)
--- NOTE | 2018-04-27 14:46 | Progress Note ---
Assessment and Plan New onset Afib reverted to sinus rhythm normal TSH initiated on eliquis for oral anticoagulation therapy Hx of CAD with 3 vessel bypass surgery in 1999. LHC in 2009 revealed all 3 bypass grafts to be patent, with left ventricular ejection fraction normal at 60%. an echocardiogram in 2012 reported a left ventricle ejection fraction maintained at 60%. Normal persantine thallium stress test in 2016. Chronic lung disease Hypertension Diabetes Recommend: Continue Cardizem and Eliqius therapy for paroxysmal afib. Subjective Date of service: 04/27/18 Principal diagnosis: Afib with Rvr Interval history: Doing well Objective - Constitutional Vitals: Vital Signs - 12hr 04/27/18 04/27/18 04:44 08:33 Temperature 97.4 F L Pulse Rate 86 Pulse Rate [ 74 Bilateral] Pulse Rate [ 80 Throughout] Respiratory 16 Rate Respiratory 16 Rate [Bilateral ] Respiratory 18 Rate [ Throughout] Blood Pressure 104/61 O2 Sat by Pulse 98 Oximetry General appearance: Present: no acute distress, well-nourished - EENT Eyes: PERRL, EOM intact ENT: hearing intact, clear oral mucosa Ears: bilateral: normal - Neck Neck: supple, normal ROM - Respiratory Respiratory effort: normal Respiratory: bilateral: CTA - Breasts Breasts: normal - Cardiovascular Rhythm: regular Heart Sounds: Present: S1 & S2. Absent: gallop, rub Extremities: pulses intact, No edema, normal color, Full ROM - Gastrointestinal General gastrointestinal: Present: soft, non-tender, non-distended, normal bowel sounds - Genitourinary Female genitourinary: normal - Integumentary Integumentary: clear, warm, dry - Musculoskeletal Musculoskeletal: 1, strength equal bilaterally - Neurologic Neurologic: moves all extremities - Psychiatric Psychiatric: memory intact, appropriate mood/affect, intact judgment & insight - Labs CBC & Chem 7: 04/27/18 05:29 04/27/18 05:29 Labs: Abnormal lab results 04/27/18 04/27/18 Range/Units 05:29 05:29 MCV 100 H (79-97) fl MCH 33 H (28-32) pg Lymphocytes % (Manual) 46.0 H (13.4-35.0) % Eosinophils % (Manual) 7.0 H (0.0-4.3) % Chloride 109.7 H (98-107) mmol/L Creatinine 0.6 L (0.7-1.2) mg/dL Glucose 104 H (65-100) mg/dL Alkaline Phosphatase 152 H (35-129) units/L Albumin 2.7 L (3.9-5) g/dL
[2018-04-27] MEDS: ROBITUSSIN AC PO PRN ×2 (16:47→22:03)
[2018-04-27] MEDS: ELIQUIS PO SCH (22:05)
[2018-04-27] MEDS: SODIUM CHLORIDE FLUSH SYRINGE 10 ML IV SCH (22:12)
[2018-04-28] MEDS: DUONEB *Not for PRN Use IH SCH ×3 (02:41→13:16)
[2018-04-28] MEDS: BROVANA NEBU IH SCH (08:41)
[2018-04-28] MEDS: PULMICORT IH SCH (08:42)
[2018-04-28] MEDS: NACL 0.9% 1000 ML 1,000 ML IV SCH (09:05)
[2018-04-28] MEDS: COREG PO SCH (09:05)
[2018-04-28] MEDS: PROTONIX PO SCH (09:05)
[2018-04-28] MEDS: BABY ASPIRIN PO SCH (09:05)
[2018-04-28] MEDS: CARDIZEM CD PO SCH (09:05)
[2018-04-28] MEDS: ELIQUIS PO SCH (09:05)
[2018-04-28] MEDS: SODIUM CHLORIDE FLUSH SYRINGE 10 ML IV SCH (09:06)
--- NOTE | 2018-04-28 11:16 | Progress Note ---
Assessment and Plan New onset Afib reverted to sinus rhythm normal TSH initiated on eliquis for oral anticoagulation therapy Hx of CAD with 3 vessel bypass surgery in 1999. LHC in 2009 revealed all 3 bypass grafts to be patent, with left ventricular ejection fraction normal at 60%. an echocardiogram in 2012 reported a left ventricle ejection fraction maintained at 60%. Normal persantine thallium stress test in 2016. Chronic lung disease Hypertension Diabetes Recommend: Continue Cardizem and Eliqius therapy for paroxysmal afib. Stable cardiac paez. Subjective Date of service: 04/28/18 Interval history: Patient has no complaints. Stable sinus rhythm on telemetry. Objective Vital Signs Temp Pulse Pulse Pulse Resp Resp Resp 04/28/18 09:51 04/28/18 08:57 79 18 04/28/18 08:42 74 18 04/28/18 08:00 98.1 F 71 14 04/28/18 03:54 98.4 F 67 18 04/27/18 22:36 97.7 F 77 19 04/27/18 21:38 84 18 04/27/18 21:23 78 18 04/27/18 19:30 97.7 F 68 14 04/27/18 17:08 98.1 F 18 04/27/18 15:11 88 84 16 16 04/27/18 12:50 99.0 F 18 BP Pulse Ox 04/28/18 09:51 97 04/28/18 08:57 04/28/18 08:42 04/28/18 08:00 148/74 98 04/28/18 03:54 139/68 98 04/27/18 22:36 125/68 99 04/27/18 21:38 04/27/18 21:23 04/27/18 19:30 123/65 99 04/27/18 17:08 128/68 04/27/18 15:11 04/27/18 12:50 113/56 - Physical Examination General: No Apparent Distress HEENT: Positive: PERRL Neck: Positive: trachea midline Cardiac: Positive: Reg Rate and Rhythm Lungs: Positive: Decreased Breath Sounds
[2018-04-28 17:09] VITALS: BP 114/60
--- NOTE | 2018-04-28 17:55 | Discharge Summary ---
Providers - Providers Date of Admission: 04/26/18 11:38 Date of discharge: 04/28/18 Attending physician: KALYN KNAPP 04/26/18 21:20 Consult to Physician [CONS] Routine Comment: Consulting Provider: ERNA INFANTE Physician Instructions: Reason For Exam: atrial fibrillation with RVR Primary care physician: TAEDO DONOVAN Hospitalization Condition: Fair Hospital course: New onset Afib reverted to sinus rhythm normal TSH initiated on eliquis for oral anticoagulation therapy Hx of CAD with 3 vessel bypass surgery in 1999. LHC in 2009 revealed all 3 bypass grafts to be patent, with left ventricular ejection fraction normal at 60%. an echocardiogram in 2012 reported a left ventricle ejection fraction maintained at 60%. Normal persantine thallium stress test in 2016. Chronic lung disease Hypertension Diabetes Recommend: Continue Cardizem and Eliqius therapy for paroxysmal afib. Disposition: - TO HOME OR SELFCARE Core Measure Documentation - Palliative Care Palliative Care/ Comfort Measures: Not Applicable - Core Measures Any of the following diagnoses?: none Exam - Constitutional Vitals: Temp Pulse Resp BP Pulse Ox 98.0 F 63 16 114/60 96 04/28/18 16:07 04/28/18 16:07 04/28/18 16:07 04/28/18 16:07 04/28/18 16:07 General appearance: Present: no acute distress, well-nourished - EENT Eyes: Present: PERRL ENT: hearing intact, clear oral mucosa - Neck Neck: Present: supple, normal ROM - Respiratory Respiratory effort: normal Respiratory: bilateral: CTA - Cardiovascular Heart rate: 78 Rhythm: regular Heart Sounds: Present: S1 & S2. Absent: rub, click - Extremities Extremities: pulses symmetrical, No edema Peripheral Pulses: within normal limits - Abdominal General gastrointestinal: Present: soft, non-tender, non-distended, normal bowel sounds Female genitourinary: Present: normal - Rectal Rectal Exam: deferred - Integumentary Integumentary: Present: clear, warm, dry - Musculoskeletal Musculoskeletal: gait normal, strength equal bilaterally - Psychiatric Psychiatric: appropriate mood/affect, intact judgment & insight - Neurologic Neurologic: CNII-XII intact, moves all extremities - Allied Health Allied health notes reviewed: nursing, case management Plan Activity: no restrictions Diet: low fat, low cholesterol, low salt Follow up with: TADEO DONOVAN MD [Primary Care Provider] - 3-5 Days
[2018-04-28] MEDS: ROBITUSSIN AC PO PRN (19:12)
== END 2018-04-28 19:16 | disposition home health service (06) | DRG 308 ==
LOC: ED 09:00 → 4A 11:38
PROVIDERS: ADMIT Internal Medicine; ATTEND Internal Medicine
DX: I48.91 Unspecified atrial fibrillation (principal); N18.6 End stage renal disease; I12.0 Hypertensive chronic kidney disease with stage 5 chronic kidney disease or end stage renal disease; I95.9 Hypotension, unspecified; I25.10 Atherosclerotic heart disease of native coronary artery without angina pectoris; J98.4 Other disorders of lung; E11.22 Type 2 diabetes mellitus with diabetic chronic kidney disease; M19.90 Unspecified osteoarthritis, unspecified site; I47.1 Supraventricular tachycardia; K21.9 Gastro-esophageal reflux disease without esophagitis; J44.9 Chronic obstructive pulmonary disease, unspecified; M10.9 Gout, unspecified; E78.5 Hyperlipidemia, unspecified; Z88.0 Allergy status to penicillin; Z95.1 Presence of aortocoronary bypass graft; Z88.2 Allergy status to sulfonamides; Z88.1 Allergy status to other antibiotic agents; Z91.041 Radiographic dye allergy status; Z79.899 Other long term (current) drug therapy; Z79.82 Long term (current) use of aspirin; I25.2 Old myocardial infarction; Z95.5 Presence of coronary angioplasty implant and graft; Z90.710 Acquired absence of both cervix and uterus; Z82.49 Family history of ischemic heart disease and other diseases of the circulatory system
CPT/HCPCS: 36415; 71045; 80053; 81001; 83036; 83690; 83735; 83880; 84439; 84443; 84484; 85007; 85025; 85610; 85730; 93005; 93010; 94640; 94760; G0378; A9270-GY; J1650; J2270; J7030

== ENCOUNTER 2018-08-04 13:31 | Emergency (ER) | payer MEDICARE ==
--- NOTE | 2018-08-04 13:59 | Emergency Department Report ---
ED General Adult HPI - General Chief complaint: Weakness Stated complaint: LEG WEAKNESS Time Seen by Provider: 08/04/18 13:44 Source: patient, family, EMS (a verbal report received from EMS.ems notes not available at time of chart dictation), RN notes reviewed, old records reviewed Mode of arrival: Stretcher Limitations: Physical Limitation - History of Present Illness Initial comments: This is an 82-year-old female. The patient does not move the name of her primary care doctor. Her past medical history includes presumed paroxysmal atrial fibrillation, discharge summary April 2018, supposed to be on oral anticoagulation therapy, eliquis Social and endorses a history of heart disease, status post CABG, hypertension, diabetes, normal cardiac stress test 2015, and chronic lung disease. The patient is brought to the hospital by emergency medical services for weakness. As per verbal report from emergency medical services, the patient complained of right lower extremity numbness. Apparently this started at 8:00 in the morning. When I go to interview the patient, she complains of global weakness, inability to get up. She denies headache, neck pain, chest pain, abdominal pain or new or different shortness of breath and urinary symptoms. She reports that she has difficulty lifting herself up on her hips. She endorses no distal extremity weakness or plantar weakness, and she denies numbness. She denies bladder or bowel retention or incontinence, makes no complaint of saddle anesthesia, and she denies back pain. -: Sudden, hour(s) Location: lower extremity Consistency: constant Improves with: rest Worsens with: movement - Related Data Home Medications Medication Instructions Recorded Confirmed Last Taken Omeprazole [Prilosec] 20 mg PO QDAY 12/12/12 08/04/18 10/17/17 09:00 ALBUTEROL Inhaler (OR & NICU) 2 puff IH TID PRN 08/04/18 08/04/18 Unknown [Proair] Allopurinol [Zyloprim] 200 mg PO QDAY 08/04/18 08/04/18 Unknown Benzonatate [Tessalon Perles] 100 mg PO Q8HR 08/04/18 08/04/18 Unknown Nitroglycerin [Nitrostat] 0.4 mg SL Q5M PRN 08/04/18 08/04/18 Unknown Ranolazine [Ranexa] 1,000 mg PO BID 08/04/18 08/04/18 Unknown Tolterodine (Nf) [Detrol LA] 4 mg PO QDAY 08/04/18 08/04/18 Unknown Previous Rx's Medication Instructions Recorded Last Taken Type Apixaban [Eliquis] 5 mg PO Q12HR #60 tablet 04/28/18 Unknown Rx Aspirin [Aspirin BABY CHEW TAB] 81 mg PO DAILY #100 tab.chew 04/28/18 Unknown Rx AtorvaSTATin [Lipitor] 20 mg PO QHS #30 tablet 04/28/18 Unknown Rx Carvedilol [Coreg] 3.125 mg PO Q12H #60 tablet 04/28/18 Unknown Rx Fluticasone/Salmeterol [Advair 1 puff IH BID #1 disk.w.dev 04/28/18 Unknown Rx Diskus 250-50 mcg] Nitrofurantoin [place]/M-Cryst 100 mg PO Q12HR #13 capsule 08/04/18 Unknown Rx [Macrobid CAP] Allergies Allergy/AdvReac Type Severity Reaction Status Date / Time Penicillins Allergy Severe EVRYTHING Verified 08/04/18 13:47 SWELLS Sulfa (Sulfonamide Allergy Mild Itching Verified 08/04/18 13:47 Antibiotics) azithromycin [From Zithromax] Allergy Itching Verified 08/04/18 13:47 iv dye Allergy Unknown Uncoded 08/16/15 12:22 ED Review of Systems ROS: Stated complaint: LEG WEAKNESS Other details as noted in HPI Constitutional: malaise. denies: fever Eyes: denies: eye discharge ENT: denies: epistaxis Respiratory: denies: cough Cardiovascular: denies: syncope Gastrointestinal: denies: abdominal pain, nausea, vomiting, hematemesis, melena, hematochezia Genitourinary: denies: urgency Musculoskeletal: arthralgia, myalgia Skin: denies: lesions Neurological: weakness Hematological/Lymphatic: denies: easy bleeding ED Past Medical Hx - Past Medical History Hx Hypertension: Yes Hx Heart Attack/AMI: Yes Hx Congestive Heart Failure: No Hx Deep Vein Thrombosis: No Hx Pulmonary Embolism: No Hx Arthritis: Yes Hx Asthma: No Hx COPD: Yes Hx Tuberculosis: No Hx HIV: No Additional medical history: angina, gout. cad - Surgical History Hx Coronary Stent: Yes Hx Open Heart Surgery: Yes Hx Pacemaker: No Hx Internal Defibrillator: No Hx Cholecystectomy: Yes Hx Appendectomy: No Hx Breast Surgery: No Additional Surgical History: hysterectomy - Social History Smoking Status: Former Smoker - Medications Home Medications: Home Medications Medication Instructions Recorded Confirmed Last Taken Type Omeprazole [Prilosec] 20 mg PO QDAY 12/12/12 08/04/18 10/17/17 09:00 History Apixaban [Eliquis] 5 mg PO Q12HR #60 tablet 04/28/18 08/04/18 Unknown Rx Aspirin [Aspirin BABY CHEW TAB] 81 mg PO DAILY #100 tab.chew 04/28/18 08/04/18 Unknown Rx AtorvaSTATin [Lipitor] 20 mg PO QHS #30 tablet 04/28/18 08/04/18 Unknown Rx Carvedilol [Coreg] 3.125 mg PO Q12H #60 tablet 04/28/18 08/04/18 Unknown Rx Fluticasone/Salmeterol [Advair 1 puff IH BID #1 disk.w.dev 04/28/18 08/04/18 Unknown Rx Diskus 250-50 mcg] ALBUTEROL Inhaler (OR & NICU) 2 puff IH TID PRN 08/04/18 08/04/18 Unknown History [Proair] Allopurinol [Zyloprim] 200 mg PO QDAY 08/04/18 08/04/18 Unknown History Benzonatate [Tessalon Perles] 100 mg PO Q8HR 08/04/18 08/04/18 Unknown History Nitrofurantoin [place]/M-Cryst 100 mg PO Q12HR #13 capsule 08/04/18 Unknown Rx [Macrobid CAP] Nitroglycerin [Nitrostat] 0.4 mg SL Q5M PRN 08/04/18 08/04/18 Unknown History Ranolazine [Ranexa] 1,000 mg PO BID 08/04/18 08/04/18 Unknown History Tolterodine (Nf) [Detrol LA] 4 mg PO QDAY 08/04/18 08/04/18 Unknown History ED Physical Exam - General Limitations: Physical Limitation General appearance: alert, in no apparent distress - Head Head exam: Present: atraumatic, normocephalic - Eye Eye exam: Present: normal appearance, EOMI, other (visual acuity intact to finger counting, color perception, reading at a close distance). Absent: nystagmus - ENT ENT exam: Present: normal exam, normal orophraynx, mucous membranes moist, normal external ear exam - Neck Neck exam: Present: normal inspection, full ROM. Absent: tenderness, meningismus - Respiratory Respiratory exam: Present: normal lung sounds bilaterally. Absent: respiratory distress - Cardiovascular Cardiovascular Exam: Present: regular rate, normal rhythm, normal heart sounds. Absent: bradycardia, tachycardia, irregular rhythm, systolic murmur, diastolic murmur, rubs, gallop - GI/Abdominal GI/Abdominal exam: Present: soft. Absent: distended, tenderness, guarding, rebound, rigid, pulsatile mass - Rectal Rectal exam: Present: other (there is no saddle anesthesia. Intact sensation to light touch in the perineum. Chaperoned by nurse Radha Yates) - Extremities Exam Extremities exam: Present: normal inspection, full ROM (patient moving the bilateral upper extremities without difficulty. Dorsi and plantar flexion intact in the bilateral lower extremities. Sensation intact to pinch and light touch in the bilateral lower extremities. Patient has 4 out of 5 strength bilat eral knee extension and knee flexion, when hip flexors are relaxed. Patient has difficulty with both hip flexors secondary to debility.), pedal edema, other (2+ pulses noted in the bilateral upper, lower extremities. Compartments soft. No long bony tenderness. The pelvis is stable.). Absent: calf tenderness - Back Exam Back exam: Present: normal inspection, full ROM. Absent: tenderness, CVA tenderness (R), CVA tenderness (L), paraspinal tenderness, vertebral tenderness - Neurological Exam Neurological exam: Present: alert, other (there is no facial droop. The tongue is midline. The extraocular movements are intact bilaterally. 4-5 strength bilateral hip flexors. 5 out of 5 strength bilateral dorsi and plantar foot flexors. Able to flex and extend hips bilaterally, although weak. Sensation intact to light touch and pinch bilateral lower extremities. Downgoing plantar reflexes noted bilaterally.) - Psychiatric Psychiatric exam: Present: normal affect, normal mood - Skin Skin exam: Present: warm, dry, intact, normal color. Absent: rash ED Course Vital Signs 08/04/18 08/04/18 08/04/18 13:56 14:00 14:15 Pulse Rate 77 76 Respiratory 14 17 Rate Blood Pressure 152/72 138/76 147/73 O2 Sat by Pulse 75 L 98 98 Oximetry 08/04/18 08/04/1808/04/19 14:30 15:00 15:15 Pulse Rate 77 75 75 Respiratory 17 16 18 Rate Blood Pressure 144/72 146/71 128/64 O2 Sat by Pulse 98 100 98 Oximetry 08/04/18 08/04/18 08/04/18 15:30 15:45 16:00 Pulse Rate 75 79 Respiratory 13 10 L 15 Rate Blood Pressure 135/74 142/78 130/66 O2 Sat by Pulse 99 99 100 Oximetry 08/04/18 08/04/18 08/04/18 16:15 16:30 16:45 Pulse Rate Respiratory 15 15 12 Rate Blood Pressure 145/61 142/65 143/74 O2 Sat by Pulse 100 100 100 Oximetry 08/04/18 17:00 Pulse Rate Respiratory 13 Rate Blood Pressure 132/66 O2 Sat by Pulse 100 Oximetry - Reevaluation(s) Reevaluation #1: 08/04/18 14:46 Differential diagnosis, including not limited to: Debility, pneumonia, deconditioning, transient ischemic attack, urinary tract infection Assessment and plan: 82-year-old female with painless weakness. Her motor examination is nonfocal. She makes no complaint of numbness to this provider. She endorses numbness to EMS. May be a component of dementia. I think Cord compression is unlikely based off of the history and physical. Screening laboratory studies, CT scan of the brain, x-ray of the chest, urinalysis have been ordered and are pending at this time. Reevaluation #2: 08/04/18 16:52 Laboratory studies reviewed and appreciated. Patient was interviewed by stroke neurology, Dr. Lucretia Lares, who recommends emergent MR of the thoracic and lumbar spine to exclude epidural bleeding. This test was ordered, and I went back and updated the patient and family. Shortly thereafter, the patient expressed ambivalence about the test. She expressed concern over claustrophobia. I explained to patient, her grandson, with her permission, and her daughter, with permission over the phone, that the patient has a potentially time sensitive diagnosis, that requires emergent diagnostic evaluation. This is the only tests available this facility to rule out a a potentially dangerous and paralyzing condition. I explained to the pat ient, grandson, and daughter that delay in acquisition of diagnostics may result in disability, paralysis, permanent loss of quality of life. The patient then stated that she did not want the test. I informed the patient that we can give her medication such as Versed to assist with anxiety. The patient verbalizes understanding. She still continues to decline the test. Unfortunately, the patient still continues to decline the test. At 4:40 PM, the patient then stated that she would consider doing the test. However, we now do not have an MR technologist, and we are not able to obtain this test. I have therefore recommended transfer to another hospital where both spine surgery/neurosurgery are available for consultation, and MR services are available. The patient at this time is refusing transfer. The patient is alert and oriented 3. The patient exhibits decision-making capacity. The patient does not have a distracting traumatic injury. Patient is able to articulate in her own words risks of having an incomplete evaluation, including disability, paralysis, loss of quality of life. This conversation is witnessed by her grandson, as well as nurses Leesa Yates, and the patient's daughter. Counseled to discontinue systemic anticoagulation, and counseled to follow up as soon as possible, or return to the emergency room if and when she changes her mind. 08/04/18 17:02 08/04/18 19:30 ED Medical Decision Making - Lab Data Result diagrams: 08/04/18 14:24 08/04/18 14:24 Lab Results 08/04/18 08/04/18 08/04/18 Range/Units 14:24 14:24 14:24 WBC 5.6 (4.5-11.0) K/mm3 RBC 3.43 L (3.65-5.03) M/mm3 Hgb 11.8 (10.1-14.3) gm/dl Hct 34.1 (30.3-42.9) % MCV 99 H (79-97) fl MCH 35 H (28-32) pg MCHC 35 H (30-34) % RDW 14.6 (13.2-15.2) % Plt Count 191 (140-440) K/mm3 Lymph % (Auto) 17.0 (13.4-35.0) % [place] % (Auto) 5.5 (0.0-7.3) % Eos % (Auto) 2.1 (0.0-4.3) % Baso % (Auto) 0.6 (0.0-1.8) % Lymph # 1.0 L (1.2-5.4) K/mm3 [place] # 0.3 (0.0-0.8) K/mm3 Eos # 0.1 (0.0-0.4) K/mm3 Baso # 0.0 (0.0-0.1) K/mm3 Seg Neutrophils % 74.8 H (40.0-70.0) % Seg Neutrophils # 4.2 (1.8-7.7) K/mm3 PT 19.8 H (12.2-14.9) Sec. INR 1.72 H (0.87-1.13) APTT 34.9 (24.2-36.6) Sec. Thrombin Time 17.6 (15.1-19.6) Sec. Sodium 134 L (137-145) mmol/L Potassium 4.8 (3.6-5.0) mmol/L Chloride 103.2 (98-107) mmol/L Carbon Dioxide 22 (22-30) mmol/L Anion Gap 14 mmol/L BUN 12 (7-17) mg/dL Creatinine 0.7 (0.7-1.2) mg/dL Estimated GFR > 60 ml/min BUN/Creatinine Ratio 17 % Glucose 142 H (65-100) mg/dL Calcium 9.0 (8.4-10.2) mg/dL Magnesium 2.00 (1.7-2.3) mg/dL Total Bilirubin 0.70 (0.1-1.2) mg/dL AST 45 H (5-40) units/L ALT 30 (7-56) units/L Alkaline Phosphatase 164 H (35-129) units/L Total Creatine Kinase 30 (30-135) units/L CK-MB (CK-2) < 1.0 (0.0-4.0) ng/mL CK-MB (CK-2) Rel Index 3.3 (0-4) Troponin T < 0.010 (0.00-0.029) ng/mL Total Protein 8.0 (6.3-8.2) g/dL Albumin 2.7 L (3.9-5) g/dL Albumin/Globulin Ratio 0.5 % Urine Color (Yellow) Urine Turbidity (Clear) Urine pH (5.0-7.0) Ur Specific [place] (1.003-1.030) Urine Protein (Negative) mg/dL Urine Glucose (UA) (Negative) mg/dL Urine Ketones (Negative) mg/dL Urine Blood (Negative) Urine Nitrite (Negative) Urine Bilirubin (Negative) Urine Urobilinogen (<2.0) mg/dL Ur Leukocyte Esterase (Negative) Urine WBC (Auto) (0.0-6.0) /HPF Urine RBC (Auto) (0.0-6.0) /HPF Urine Bacteria (Auto) (Negative) /HPF Urine Mucus /HPF Salicylates (2.8-20.0) mg/dL Acetaminophen (10.0-30.0) ug/mL Plasma/Serum Alcohol (0-0.07) % 08/04/18 08/04/18 08/04/18 Range/Units 14:24 14:24 14:24 WBC (4.5-11.0) K/mm3 RBC (3.65-5.03) M/mm3 Hgb (10.1-14.3) gm/dl Hct (30.3-42.9) % MCV (79-97) fl MCH (28-32) pg MCHC (30-34) % RDW (13.2-15.2) % Plt Count (140-440) K/mm3 Lymph % (Auto) (13.4-35.0) % [place] % (Auto) (0.0-7.3) % Eos % (Auto) (0.0-4.3) % Baso % (Auto) (0.0-1.8) % Lymph # (1.2-5.4) K/mm3 [place] # (0.0-0.8) K/mm3 Eos # (0.0-0.4) K/mm3 Baso # (0.0-0.1) K/mm3 Seg Neutrophils % (40.0-70.0) % Seg Neutrophils # (1.8-7.7) K/mm3 PT (12.2-14.9) Sec. INR (0.87-1.13) APTT (24.2-36.6) Sec. Thrombin Time (15.1-19.6) Sec. Sodium (137-145) mmol/L Potassium (3.6-5.0) mmol/L Chloride (98-107) mmol/L Carbon Dioxide (22-30) mmol/L Anion Gap mmol/L BUN (7-17) mg/dL Creatinine (0.7-1.2) mg/dL Estimated GFR ml/min BUN/Creatinine Ratio % Glucose (65-100) mg/dL Calcium (8.4-10.2) mg/dL Magnesium (1.7-2.3) mg/dL Total Bilirubin (0.1-1.2) mg/dL AST (5-40) units/L ALT (7-56) units/L Alkaline Phosphatase (35-129) units/L Total Creatine Kinase (30-135) units/L CK-MB (CK-2) (0.0-4.0) ng/mL CK-MB (CK-2) Rel Index (0-4) Troponin T (0.00-0.029) ng/mL Total Protein (6.3-8.2) g/dL Albumin (3.9-5) g/dL Albumin/Globulin Ratio % Urine Color (Yellow) Urine Turbidity (Clear) Urine pH (5.0-7.0) Ur Specific [place] (1.003-1.030) Urine Protein (Negative) mg/dL Urine Glucose (UA) (Negative) mg/dL Urine Ketones (Negative) mg/dL Urine Blood (Negative) Urine Nitrite (Negative) Urine Bilirubin (Negative) Urine Urobilinogen (<2.0) mg/dL Ur Leukocyte Esterase (Negative) Urine WBC (Auto) (0.0-6.0) /HPF Urine RBC (Auto) (0.0-6.0) /HPF Urine Bacteria (Auto) (Negative) /HPF Urine Mucus /HPF Salicylates < 0.3 L (2.8-20.0) mg/dL Acetaminophen < 5.0 L (10.0-30.0) ug/mL Plasma/Serum Alcohol < 0.01 (0-0.07) % // Range/Units 15:30 WBC (4.5-11.0) K/mm3 RBC (3.65-5.03) M/mm3 Hgb (10.1-14.3) gm/dl Hct (30.3-42.9) % MCV (79-97) fl MCH (28-32) pg MCHC (30-34) % RDW (13.2-15.2) % Plt Count (140-440) K/mm3 Lymph % (Auto) (13.4-35.0) % [place] % (Auto) (0.0-7.3) % Eos % (Auto) (0.0-4.3) % Baso % (Auto) (0.0-1.8) % Lymph # (1.2-5.4) K/mm3 [place] # (0.0-0.8) K/mm3 Eos # (0.0-0.4) K/mm3 Baso # (0.0-0.1) K/mm3 Seg Neutrophils % (40.0-70.0) % Seg Neutrophils # (1.8-7.7) K/mm3 PT (12.2-14.9) Sec. INR (0.87-1.13) APTT (24.2-36.6) Sec. Thrombin Time (15.1-19.6) Sec. Sodium (137-145) mmol/L Potassium (3.6-5.0) mmol/L Chloride (98-107) mmol/L Carbon Dioxide (22-30) mmol/L Anion Gap mmol/L BUN (7-17) mg/dL Creatinine (0.7-1.2) mg/dL Estimated GFR ml/min BUN/Creatinine Ratio % Glucose (65-100) mg/dL Calcium (8.4-10.2) mg/dL Magnesium (1.7-2.3) mg/dL Total Bilirubin (0.1-1.2) mg/dL AST (5-40) units/L ALT (7-56) units/L Alkaline Phosphatase (35-129) units/L Total Creatine Kinase (30-135) units/L CK-MB (CK-2) (0.0-4.0) ng/mL CK-MB (CK-2) Rel Index (0-4) Troponin T (0.00-0.029) ng/mL Total Protein (6.3-8.2) g/dL Albumin (3.9-5) g/dL Albumin/Globulin Ratio % Urine Color Judi (Yellow) Urine Turbidity Clear (Clear) Urine pH 5.0 (5.0-7.0) Ur Specific [place] 1.021 (1.003-1.030) Urine Protein 100 mg/dl (Negative) mg/dL Urine Glucose (UA) Neg (Negative) mg/dL Urine Ketones Neg (Negative) mg/dL Urine Blood Sm (Negative) Urine Nitrite Neg (Negative) Urine Bilirubin Neg (Negative) Urine Urobilinogen < 2.0 (<2.0) mg/dL Ur Leukocyte Esterase Neg (Negative) Urine WBC (Auto) 4.0 (0.0-6.0) /HPF Urine RBC (Auto) 177.0 (0.0-6.0) /HPF Urine Bacteria (Auto) 1+ (Negative) /HPF Urine Mucus Few /HPF Salicylates (2.8-20.0) mg/dL Acetaminophen (10.0-30.0) ug/mL Plasma/Serum Alcohol (0-0.07) % Vital Signs 08/04/18 08/04/18 08/04/18 13:56 14:00 14:15 Pulse Rate 77 76 Respiratory 14 17 Rate Blood Pressure 152/72 138/76 147/73 O2 Sat by Pulse 75 L 98 98 Oximetry 08/04/18 08/04/18 08/04/18 14:30 15:00 15:15 Pulse Rate 77 75 75 Respiratory 17 16 18 Rate Blood Pressure 144/72 146/71 128/64 O2 Sat by Pulse 98 100 98 Oximetry 08/04/18 08/04/18 08/04/18 15:30 15:45 16:00 Pulse Rate 75 79 Respiratory 13 10 L 15 Rate Blood Pressure 135/74 142/78 130/66 O2 Sat by Pulse 99 99 100 Oximetry 08/04/18 08/04/18 08/04/18 16:15 16:30 16:45 Pulse Rate Respiratory 15 15 12 Rate Blood Pressure 145/61 142/65 143/74 O2 Sat by Pulse 100 100 100 Oximetry 08/04/18 17:00 Pulse Rate Respiratory 13 Rate Blood Pressure 132/66 O2 Sat by Pulse 100 Oximetry - EKG Data 08/04/18 14:41 EKG today shows a sinus rhythm, with 77 bpm, left axis deviation, borderline left anterior fascicular block, atrial enlargement, QTC is prolonged, T wave inversions V2, V3, V4, this is an abnormal EKG, this EKG is not consistent with ST elevation myocardial infarction, it appears to be unchanged from prior EKG from April 2018, with the exception of resolution of atrial fibrillation. - Radiology Data Radiology results: report reviewed, image reviewed Print Report Referring Physician: SUSAN CHOI Patient Name: RUDOLPH LEE Date of : 1935 Sex: Female Report Date: 2018-08-04 Report Status: Finalized Findings [facility] [address] [place] [address] XRay Report Signed Patient: RUDOLPH LEE MR#: [id number] : 934 Acct:[id number] Age/Sex: 82 / F ADM Date: 08/04/18 Loc: ED Attending Dr: Ordering Physician: SUSAN CHOI MD Date of Service: 08/04/18 Procedure(s): XR chest 1V ap Accession Number(s): [id number] cc: SUSAN CHOI MD Fluoro Time In Minutes: AP CHEST: HISTORY: Weeks, pneumonia Previous CABG changes are identified. There are moderate chronic interstitial changes throughout both lungs which are unchanged since 04/26/18. No consolidation, large pleural effusion or pneumothorax. The bony structures are demineralized. IMPRESSION: Chronic interstitial findings. No change since 04/26/18. Transcribed By: TTR Dictated By: LIBBY MAGDALENO JR, MD Electronically Authenticated By: LIBBY MAGDALENO JR, MD Signed Date/Time: 08/04/18 1412 Critical Care Time: Yes Critical care time in (mins) excluding proc time.: 60 Critical care attestation.: If time is entered above; I have spent that time in minutes in the direct care of this critically ill patient, excluding procedure time. ED Disposition Clinical Impression: Leg weakness, bilateral Disposition: DC-07 LEFT AGAINST MED ADVICE Is pt being admited?: No Does the pt Need Aspirin: No Condition: Undetermined Additional Instructions: As we discussed, you have left the hospital/emergency room AGAINST MEDICAL ADVICE. By leaving, you risked , disability, paralysis, permanent loss of quality of life. The ER is open 24 hours a day, 7 days a week. It never close s. Please return to the emergency room right away if and when you change your mind. If you decide not to return to the emergency room, please follow-up with the listed physician referrals as soon as possible. Discontinue all blood thinning medications. Do not take aspirin, Motrin, ibuprofen, Naprosyn, Aleve, or eliquis Cultures were sent today, and results will be available in the next 3-5 days. Have your primary care doctor contact the medical records department to obtain culture results. Prescriptions: Nitrofurantoin [place]/M-Cryst [Macrobid CAP] 100 mg PO Q12HR #13 capsule Referrals: DAMIAN TIJERINA MD [Staff Physician] - 3-5 Days ROXANNE RENNER MD [Staff Physician] - 3-5 Days ARTEMIO LUEVANO MD [Staff Physician] - 3-5 Days
--- NOTE | 2018-08-04 14:18 | XRay Report ---
AP CHEST: HISTORY: Weeks, pneumonia Previous CABG changes are identified. There are moderate chronic interstitial changes throughout both lungs which are unchanged since 04/26/18. No consolidation, large pleural effusion or pneumothorax. The bony structures are demineralized. IMPRESSION: Chronic interstitial findings. No change since 04/26/18.
[2018-08-04 14:58] LABS: Basophils % (Auto) 0.6 % (0.0-1.8); Eosinophils # (Auto) 0.1 K/mm3 (0.0-0.4); Eosinophils % (Auto) 2.1 % (0.0-4.3); Hematocrit 34.1 % (30.3-42.9); Hemoglobin 11.8 gm/dl (10.1-14.3); Mean Corpuscular HGB Conc 35 % (30-34); Mean Corpuscular Volume 99 fl (79-97); Monocytes # (Auto) 0.3 K/mm3 (0.0-0.8); Monocytes % (Auto) 5.5 % (0.0-7.3); Platelet Count 191 K/mm3 (140-440); Red Blood Count 3.43 M/mm3 (3.65-5.03); Red Cell Distribution Width 14.6 % (13.2-15.2)
--- NOTE | 2018-08-04 15:03 | Cat Scan Report ---
CT HEAD WITHOUT CONTRAST: HISTORY: Stroke symptoms. TECHNIQUE: Sequential 2.5mm CT images. COMPARISON: none. FINDINGS: Cerebral Parenchyma: Mild hypoattenuation throughout the white matter is identified consistent with chronic small vessel disease. The remaining brain parenchyma is normal attenuation. Cerebellum: Within normal limits. Brainstem: Within normal limits. Ventricles: Normal. Sella: Normal. Extra-axial spaces: Normal. Basal Cisterns: Normal. Intracranial Hemorrhage: None. Midline Shift: None. Calvarium: Normal. Sinuses: Normal. Mastoid Air Cells: Normal. Visualized Orbits: Normal. IMPRESSION: Nonspecific chronic white matter changes. No acute intracranial process is identified.
[2018-08-04 15:10] LABS: INR 1.72 (0.87-1.13)
[2018-08-04 15:11] LABS: Partial Thromboplastin Time 34.9 Sec. (24.2-36.6)
[2018-08-04 15:17] LABS: Alanine Aminotransferase 30 units/L (7-56); Albumin 2.7 g/dL (3.9-5); BUN/Creatinine Ratio 17; Blood Urea Nitrogen 12 mg/dL (7-17); Creatine Kinase MB < 1.0 ng/mL (0.0-4.0); Hemolysis Index 83
--- NOTE | 2018-08-04 15:40 | Emergency Department Report ---
ED Neuro Deficit HPI - General Chief Complaint: Weakness Stated Complaint: LEG WEAKNESS Time Seen by Provider: 08/04/18 13:44 Source: patient, RN/MD Mode of arrival: Stretcher Limitations: Physical Limitation - History of Present Illness Initial Comments: [facility] Tele[facility]urology Consult Services STAT Neurology Consult Chief Complaint: Bilateral leg weakness HPI: Asked to see this patient emergently in telemedicine consultation utilizing interactive audio and visual technologies. Consultation was performed with assistance of ancillary / medical staff at bedside. Verbal consent to perform the examination with telemedicine was obtained. Patient agreed to proceed with the consultation. 82-year-old right-handed -[place] female who comes to the emergency room for evaluation of severe bilateral leg weakness. Patient currently is on Eliquis for a history of paroxysmal atrial fibrillation. Patient recalls about 1 month ago, having a similar symptoms of bilateral leg weakness that went away on its own. She states that yesterday she was fine and was able to go to the grocery store. She went to bed around 10:30 PM last night at her baseline. She woke up this morning around 9 AM to use the bathroom and appeared fine. She went to lay down. Then at 10 AM, she could not get up on her own out of bed. Both her legs were equally weak. She did note some mild back pain. She denies any recent falls or back trauma. No pain in her legs. She denied any urinary incontinence, but did state that she had some potential fecal incontinence. Currently, the patient appears comfortable. She was antigravity in both her arms. She was able to lift up both her legs off the ER stretcher, but she describes both legs being heavy and she did drift down to the ER bed. PMH: Hypertension, hyperlipidemia, paroxysmal atrial fibrillation on Eliquis, coronary artery disease status post CABG, GERD, gout, COPD SOC: Negative x 3. Prior tobacco use in the past. She lives with her grandchildren. FMH: Negative for stroke ROS: 13 point review of systems were reviewed with the patient, and are all n egative with the exception of the aforementioned in the history of present illness. VS: Nothing charted Exam: Patient is in no apparent distress. Patient appears as stated age. No obvious acute respiratory or cardiac distress. Patient is well groomed and well-nourished. 1a- LOC: Keenly responsive - 0 1b- LOC questions: Answers both questions correctly - 0 1c- LOC commands- Performs both tasks correctly- 0 2- Gaze: Normal; no gaze paresis or gaze deviation - 0 3- Visual Arellano: normal, no Visual field deficit - 0 4- Facial movements: no facial palsy - 0 5- Upper limb motor - no drift - 0 6- Lower limb motor bilateral leg drifts - 4 7- Limb Coordination: absent ataxia - 0 8- Sensory: no sensory loss - 0 9- Language - No aphasia - 0 10- Speech - No dysarthria -0 11- Neglect / Extinction - none found - 0 NIHSS score: 4 Diagnostic Data: WBC 5.6, hemoglobin 9.8, platelets 191, PT 19.8, INR 1.7, total CPK 30, troponin negative x1, LFTs within normal limits, calcium 9, sodium 134, calcium 4.8, BUN 12, trending 0.7, and blood glucose 142 CT of the head showed no acute intracranial process Medical Data Reviewed: 1.Data?reviewed include clinical labs, radiology,?and medical tests; 2.Tests?results discussed w/performing or interpreting physician; 3.Obtaining/reviewing old medical records; 4.Obtaining?case history from another source; 5.Independent?review of image, tracing, or specimen. Medical Decision Making: - Extensive number of diagnosis or management options are considered below. - Extensive amount of complex data reviewed. - High risk of complication and/or morbidity or mortality are associated with differential diagnostic considerations below. - There may be?uncertain?outcome and increased probability of prolonged functional impairment or high probability of severe prolonged functional impairment associated with some of these differential diagnosis. Assessment: 1. Bilateral leg weakness 2. Atrial fibrillation on Eliquis 3. Coronary artery disease status post CABG 4. GERD 5. History of gout 6. COPD 7. Hypertension 8. Hyperlipidemia Recommendations: Okay to proceed with MRI of the thoracic and lumbar spines with and without contrast to rule out any acute cervical cord process that could be causing her symptoms. Consult PT to further evaluate the patient. Continue supportive care. Plan of care was discussed with the patient. Thank you for allowing [facility] to participate in the care of your patient. Please call me, Dr. Lares, with any questions at [phone]. Case discussed with the ER staff and Dr. Anderson. - Related Data Home Medications: Home Medications Medication Instructions Recorded Confirmed Last Taken Omeprazole [Prilosec] 20 mg PO QDAY 12/12/12 08/04/18 10/17/17 09:00 ALBUTEROL Inhaler (OR & NICU) 2 puff IH TID PRN 08/04/18 08/04/18 Unknown [Proair] Allopurinol [Zyloprim] 200 mg PO QDAY 08/04/18 08/04/18 Unknown Benzonatate [Tessalon Perles] 100 mg PO Q8HR 08/04/18 08/04/18 Unknown Nitroglycerin [Nitrostat] 0.4 mg SL Q5M PRN 08/04/18 08/04/18 Unknown Ranolazine [Ranexa] 1,000 mg PO BID 08/04/18 08/04/18 Unknown Tolterodine (Nf) [Detrol LA] 4 mg PO QDAY 08/04/18 08/04/18 Unknown Previous Rx's Medication Instructions Recorded Last Taken Type Apixaban [Eliquis] 5 mg PO Q12HR #60 tablet 04/28/18 Unknown Rx Aspirin [Aspirin BABY CHEW TAB] 81 mg PO DAILY #100 tab.chew 04/28/18 Unknown Rx AtorvaSTATin [Lipitor] 20 mg PO QHS #30 tablet 04/28/18 Unknown Rx Carvedilol [Coreg] 3.125 mg PO Q12H #60 tablet 04/28/18 Unknown Rx Fluticasone/Salmeterol [Advair 1 puff IH BID #1 disk.w.dev 04/28/18 Unknown Rx Diskus 250-50 mcg] Allergies/Adverse Reactions: Allergies Allergy/AdvReac Type Severity Reaction Status Date / Time Penicillins Allergy Severe EVRYTHING Verified 08/04/18 13:47 SWELLS Sulfa (Sulfonamide Allergy Mild Itching Verified 08/04/18 13:47 Antibiotics) azithromycin [From Zithromax] Allergy Itching Verified 08/04/18 13:47 iv dye Allergy Unknown Uncoded 08/16/15 12:22 ED Review of Systems ROS: Stated complaint: LEG WEAKNESS Other details as noted in HPI Constitutional: malaise. denies: fever Eyes: denies: eye discharge ENT: denies: epistaxis Respiratory: denies: cough Cardiovascular: denies: syncope Gastrointestinal: denies: abdominal pain, nausea, vomiting, hematemesis, melena, hematochezia Genitourinary: denies: urgency Musculoskeletal: arthralgia, myalgia Skin: denies: lesions Neurological: weakness Hematological/Lymphatic: denies: easy bleeding ED Past Medical Hx - Past Medical History Previous Medical History?: Yes Hx Hypertension: Yes Hx Heart Attack/AMI: Yes Hx Congestive Heart Failure: No Hx Deep Vein Thrombosis: No Hx Pulmonary Embolism: No Hx Arthritis: Yes Hx Asthma: No Hx COPD: Yes Hx Tuberculosis: No Hx HIV: No Additional medical history: angina, gout. cad - Surgical History Past Surgical History?: Yes Hx Coronary Stent: Yes Hx Open Heart Surgery: Yes Hx Pacemaker: No Hx Internal Defibrillator: No Hx Cholecystectomy: Yes Hx Appendectomy: No Hx Breast Surgery: No Additional Surgical History: hysterectomy - Social History Smoking Status: Former Smoker - Medications Home Medications: Home Medications Medication Instructions Recorded Confirmed Last Taken Type Omeprazole [Prilosec] 20 mg PO QDAY 12/12/12 08/04/18 10/17/17 09:00 History Apixaban [Eliquis] 5 mg PO Q12HR #60 tablet 04/28/18 08/04/18 Unknown Rx Aspirin [Aspirin BABY CHEW TAB] 81 mg PO DAILY #100 tab.chew 04/28/18 08/04/18 Unknown Rx AtorvaSTATin [Lipitor] 20 mg PO QHS #30 tablet 04/28/18 08/04/18 Unknown Rx Carvedilol [Coreg] 3.125 mg PO Q12H #60 tablet 04/28/18 08/04/18 Unknown Rx Fluticasone/Salmeterol [Advair 1 puff IH BID #1 disk.w.dev 04/28/18 08/04/18 Unknown Rx Diskus 250-50 mcg] ALBUTEROL Inhaler (OR & NICU) 2 puff IH TID PRN 08/04/18 08/04/18 Unknown History [Proair] Allopurinol [Zyloprim] 200 mg PO QDAY 08/04/18 08/04/18 Unknown History Benzonatate [Tessalon Perles] 100 mg PO Q8HR 08/04/18 08/04/18 Unknown History Nitroglycerin [Nitrostat] 0.4 mg SL Q5M PRN 08/04/18 08/04/18 Unknown History Ranolazine [Ranexa] 1,000 mg PO BID 08/04/18 08/04/18 Unknown History Tolterodine (Nf) [Detrol LA] 4 mg PO QDAY 08/04/18 08/04/18 Unknown History ED Neuro Physical Exam - General Limitations: Physical Limitation General appearance: alert, in no apparent distress Suspected Stroke: No - Lab Data Result diagrams: 08/04/18 14:24 08/04/18 14:24 Lab Results 08/04/18 08/04/18 08/04/18 Range/Units 14:24 14:24 14:24 WBC 5.6 (4.5-11.0) K/mm3 RBC 3.43 L (3.65-5.03) M/mm3 Hgb 11.8 (10.1-14.3) gm/dl Hct 34.1 (30.3-42.9) % MCV 99 H (79-97) fl MCH 35 H (28-32) pg MCHC 35 H (30-34) % RDW 14.6 (13.2-15.2) % Plt Count 191 (140-440) K/mm3 Lymph % (Auto) 17.0 (13.4-35.0) % [place] % (Auto) 5.5 (0.0-7.3) % Eos % (Auto) 2.1 (0.0-4.3) % Baso % (Auto) 0.6 (0.0-1.8) % Lymph # 1.0 L (1.2-5.4) K/mm3 [place] # 0.3 (0.0-0.8) K/mm3 Eos # 0.1 (0.0-0.4) K/mm3 Baso # 0.0 (0.0-0.1) K/mm3 Seg Neutrophils % 74.8 H (40.0-70.0) % Seg Neutrophils # 4.2 (1.8-7.7) K/mm3 PT 19.8 H (12.2-14.9) Sec. INR 1.72 H (0.87-1.13) APTT 34.9 (24.2-36.6) Sec. Sodium 134 L (137-145) mmol/L Potassium 4.8 (3.6-5.0) mmol/L Chloride 103.2 (98-107) mmol/L Carbon Dioxide 22 (22-30) mmol/L Anion Gap 14 mmol/L BUN 12 (7-17) mg/dL Creatinine 0.7 (0.7-1.2) mg/dL Estimated GFR > 60 ml/min BUN/Creatinine Ratio 17 % Glucose 142 H (65-100) mg/dL Calcium 9.0 (8.4-10.2) mg/dL Magnesium 2.00 (1.7-2.3) mg/dL Total Bilirubin 0.70 (0.1-1.2) mg/dL AST 45 H (5-40) units/L ALT 30 (7-56) units/L Alkaline Phosphatase 164 H (35-129) units/L Total Creatine Kinase 30 (30-135) units/L CK-MB (CK-2) < 1.0 (0.0-4.0) ng/mL CK-MB (CK-2) Rel Index 3.3 (0-4) Troponin T < 0.010 (0.00-0.029) ng/mL Total Protein 8.0 (6.3-8.2) g/dL Albumin 2.7 L (3.9-5) g/dL Albumin/Globulin Ratio 0.5 % Salicylates (2.8-20.0) mg/dL Acetaminophen (10.0-30.0) ug/mL Plasma/Serum Alcohol (0-0.07) % 08/04/18 08/04/18 08/04/18 Range/Units 14:24 14:24 14:24 WBC (4.5-11.0) K/mm3 RBC (3.65-5.03) M/mm3 Hgb (10.1-14.3) gm/dl Hct (30.3-42.9) % MCV (79-97) fl MCH (28-32) pg MCHC (30-34) % RDW (13.2-15.2) % Plt Count (140-440) K/mm3 Lymph % (Auto) (13.4-35.0) % [place] % (Auto) (0.0-7.3) % Eos % (Auto) (0.0-4.3) % Baso % (Auto) (0.0-1.8) % Lymph # (1.2-5.4) K/mm3 [place] # (0.0-0.8) K/mm3 Eos # (0.0-0.4) K/mm3 Baso # (0.0-0.1) K/mm3 Seg Neutrophils % (40.0-70.0) % Seg Neutrophils # (1.8-7.7) K/mm3 PT (12.2-14.9) Sec. INR (0.87-1.13) APTT (24.2-36.6) Sec. Sodium (137-145) mmol/L Potassium (3.6-5.0) mmol/L Chloride (98-107) mmol/L Carbon Dioxide (22-30) mmol/L Anion Gap mmol/L BUN (7-17) mg/dL Creatinine (0.7-1.2) mg/dL Estimated GFR ml/min BUN/Creatinine Ratio % Glucose (65-100) mg/dL Calcium (8.4-10.2) mg/dL Magnesium (1.7-2.3) mg/dL Total Bilirubin (0.1-1.2) mg/dL AST (5-40) units/L ALT (7-56) units/L Alkaline Phosphatase (35-129) units/L Total Creatine Kinase (30-135) units/L CK-MB (CK-2) (0.0-4.0) ng/mL CK-MB (CK-2) Rel Index (0-4) Troponin T (0.00-0.029) ng/mL Total Protein (6.3-8.2) g/dL Albumin (3.9-5) g/dL Albumin/Globulin Ratio % Salicylates < 0.3 L (2.8-20.0) mg/dL Acetaminophen < 5.0 L (10.0-30.0) ug/mL Plasma/Serum Alcohol < 0.01 (0-0.07) % Critical care attestation.: If time is entered above; I have spent that time in minutes in the direct care of this critically ill patient, excluding procedure time. ED Disposition Clinical Impression: Leg weakness, bilateral Disposition: OP ADMIT IP TO THIS HOSP Is pt being admited?: Yes Does the pt Need Aspirin: No Condition: Stable
[2018-08-04 16:11] LABS: Thrombin Time 17.6 Sec. (15.1-19.6)
[2018-08-04 16:46] LABS: Bacteria,Urine 1+ /HPF (Negative); Bilirubin,Urine NEG (Negative); Blood,Urine SM (Negative); Color,Urine Amber (Yellow); Mucus,Urine FEW /HPF; Urobilinogen,Urine < 2.0 mg/dL (<2.0)
[2018-08-04] MEDS ORDERED: MACROBID PO ONE (16:51)
[2018-08-04 19:32] VITALS: BP 132/66
== END 2018-08-04 17:10 | disposition left against medical advice (07) ==
LOC: ED 13:31
DX: M62.81 Muscle weakness (generalized) (principal); M10.9 Gout, unspecified; I48.0 Paroxysmal atrial fibrillation; E11.9 Type 2 diabetes mellitus without complications; I11.0 Hypertensive heart disease with heart failure; I25.119 Atherosclerotic heart disease of native coronary artery with unspecified angina pectoris; J44.9 Chronic obstructive pulmonary disease, unspecified; Z88.0 Allergy status to penicillin; Z88.2 Allergy status to sulfonamides; Z88.1 Allergy status to other antibiotic agents; Z91.041 Radiographic dye allergy status; Z79.82 Long term (current) use of aspirin; Z79.899 Other long term (current) drug therapy; Z87.891 Personal history of nicotine dependence; Z90.710 Acquired absence of both cervix and uterus; Z90.49 Acquired absence of other specified parts of digestive tract; Z95.1 Presence of aortocoronary bypass graft
CPT/HCPCS: 36415; 70450; 71045; 80053; 81001; 82550; 82553; 83735; 84484; 85025; 85610; 85670; 85730; 87086; 93005; 93010; 99285; G0480; 80320

== ENCOUNTER 2020-04-18 14:55 | Emergency (ER) | payer MEDICARE ==
--- NOTE | 2020-04-18 15:15 | Event Note ---
ED Screening Note ED Screening Note: numerous falls recently dx with UTI this week fell "hard" today per family co l rib pain This initial assessment/diagnostic orders/clinical plan/treatment(s) is/are subject to change based on patients health status, clinical progression and re- assessment by fellow clinical providers in the ED. Further treatment and workup at subsequent clinical providers discretion. Patient/guardian urged not to elope from the ED as their condition may be serious if not clinically assessed and managed. Initial orders include: ro medical cause of falls ro fx
[2020-04-18 15:48] LABS: Hematocrit 33.4 % (30.3-42.9); Hemoglobin 11.4 gm/dl (10.1-14.3); Mean Corpuscular HGB Conc 34 % (30-34); Mean Corpuscular Volume 99 fl (79-97); Platelet Count 224 K/mm3 (140-440); Red Blood Count 3.39 M/mm3 (3.65-5.03); Red Cell Distribution Width 15.9 % (13.2-15.2)
[2020-04-18 15:56] LABS: Alanine Aminotransferase 37 units/L (7-56); Albumin 2.4 g/dL (3.9-5); BUN/Creatinine Ratio 10; Blood Urea Nitrogen 10 mg/dL (7-17); Calcium 9.1 mg/dL (8.4-10.2); Hemolysis Index 7
--- NOTE | 2020-04-18 16:52 | XRay Report ---
LEFT RIBS 3 VIEWS INDICATION / CLINICAL INFORMATION: Left rib pain after a fall last night. COMPARISON: 08/04/18 FINDINGS: RIBS: Virtually nondisplaced fracture of the posterolateral left 6th, 7th, and 8th ribs. LUNGS: Chronic bilateral interstitial opacities are unchanged. No pneumothorax. Signer Name: Doug Carbajal MD Signed: 04/18/2020 4:48 PM Workstation Name: [id number]
[2020-04-18] MEDS ORDERED: HYDROcodone/ACETAMINOPHEN 5-325 MG TAB PO ONE (17:03)
[2020-04-18] MEDS ORDERED: SODIUM CHLORIDE 0.9% 1000 ML 1,000 ML IV ONE (17:03)
[2020-04-18 18:01] LABS: Bilirubin,Urine NEG (Negative); Blood,Urine MOD (Negative); Color,Urine Yellow (Yellow); Hyaline Casts,Urine 7 /LPF; Mucus,Urine FEW /HPF; Protein,Urine <15 mg/dL mg/dL (Negative)
--- NOTE | 2020-04-18 18:31 | Emergency Department Report ---
ED Fall HPI - General Chief Complaint: Fall Stated Complaint: BACK/RIP PAIN DUE TO FALL Time Seen by Provider: 04/18/20 15:14 Source: family Mode of arrival: Wheelchair - History of Present Illness Initial Comments: Patient is a 84-year-old F [place] female with a past medical history of hypertension who is presenting status post a fall. Granddaughter is here with the patient and is her primary caregiver. Patient was in the bathroom and was heard falling. States she just lost her balance. Had a slight slip and fall yesterday with no injury. Today the patient is complaining of some left rib pain. Patient pain is estimated at a 6 out of 10 in severity is worse with m ovement better with rest. She denies shortness of breath. Patient recently treated for UTI diagnosed Thursday and is currently on antibiotics. She denies any fevers chills cough cold or congestion. - Related Data Home Medications Medication Instructions Recorded Confirmed Last Taken Omeprazole [Prilosec] 20 mg PO QDAY 12/12/12 08/04/18 10/17/17 09:00 Albuterol Mdi (or & Nicu Only) 2 puff IH TID PRN 08/04/18 08/04/18 Unknown [Proair] Benzonatate [Tessalon Perles] 100 mg PO Q8HR 08/04/18 08/04/18 Unknown Nitroglycerin [Nitrostat] 0.4 mg SL Q5M PRN 08/04/18 08/04/18 Unknown Ranolazine [Ranexa] 1,000 mg PO BID 08/04/18 08/04/18 Unknown Tolterodine (Nf) [Detrol LA] 4 mg PO QDAY 08/04/18 08/04/18 Unknown allopurinoL [Zyloprim] 200 mg PO QDAY 08/04/18 08/04/18 Unknown Previous Rx's Medication Instructions Recorded Last Taken Type Apixaban [Eliquis] 5 mg PO Q12HR #60 tablet 04/28/18 Unknown Rx Aspirin [Aspirin BABY CHEW TAB] 81 mg PO DAILY #100 tab.chew 04/28/18 Unknown Rx AtorvaSTATin [Lipitor] 20 mg PO QHS #30 tablet 04/28/18 Unknown Rx Fluticasone/Salmeterol [Advair 1 puff IH BID #1 disk.w.dev 04/28/18 Unknown Rx Diskus 250-50 mcg] carvediloL [Coreg] 3.125 mg PO Q12H #60 tablet 04/28/18 Unknown Rx Nitrofurantoin Alger/M-Cryst 100 mg PO Q12HR #13 capsule 08/04/18 Unknown Rx [Macrobid CAP] Allergies Allergy/AdvReac Type Severity Reaction Status Date / Time Penicillins Allergy Severe EVRYTHING Verified 04/18/20 15:12 SWELLS Sulfa (Sulfonamide Allergy Mild Itching Verified 04/18/20 15:12 Antibiotics) azithromycin [From Zithromax] Allergy Itching Verified 04/18/20 15:12 iv dye Allergy Unknown Uncoded 08/16/15 12:22 ED Review of Systems ROS: Stated complaint: BACK/RIP PAIN DUE TO FALL Other details as noted in HPI Comment: All other systems reviewed and negative ED Past Medical Hx - Past Medical History Hx Hypertension: Yes Hx Heart Attack/AMI: Yes Hx Congestive Heart Failure: No Hx Deep Vein Thrombosis: No Hx Pulmonary Embolism: No Hx Arthritis: Yes Hx Asthma: No Hx COPD: Yes Hx Tuberculosis: No Hx HIV: No Additional medical history: angina, gout. cad - Surgical History Hx Coronary Stent: Yes Hx Open Heart Surgery: Yes Hx Pacemaker: No Hx Internal Defibrillator: No Hx Cholecystectomy: Yes Hx Appendectomy: No Hx Breast Surgery: No Additional Surgical History: hysterectomy - Social History Smoking Status: Former Smoker Substance Use Type: None - Medications Home Medications: Home Medications Medication Instructions Recorded Confirmed Last Taken Type Omeprazole [Prilosec] 20 mg PO QDAY 12/12/12 08/04/18 10/17/17 09:00 History Apixaban [Eliquis] 5 mg PO Q12HR #60 tablet 04/28/18 08/04/18 Unknown Rx Aspirin [Aspirin BABY CHEW TAB] 81 mg PO DAILY #100 tab.chew 04/28/18 08/04/18 Unknown Rx AtorvaSTATin [Lipitor] 20 mg PO QHS #30 tablet 04/28/18 08/04/18 Unknown Rx Fluticasone/Salmeterol [Advair 1 puff IH BID #1 disk.w.dev 04/28/18 08/04/18 Unknown Rx Diskus 250-50 mcg] carvediloL [Coreg] 3.125 mg PO Q12H #60 tablet 04/28/18 08/04/18 Unknown Rx Albuterol Mdi (or & Nicu Only) 2 puff IH TID PRN 08/04/18 08/04/18 Unknown History [Proair] Benzonatate [Tessalon Perles] 100 mg PO Q8HR 08/04/18 08/04/18 Unknown History Nitrofurantoin [place]/M-Cryst 100 mg PO Q12HR #13 capsule 08/04/18 Unknown Rx [Macrobid CAP] Nitroglycerin [Nitrostat] 0.4 mg SL Q5M PRN 08/04/18 08/04/18 Unknown History Ranolazine [Ranexa] 1,000 mg PO BID 08/04/18 08/04/18 Unknown History Tolterodine (Nf) [Detrol LA] 4 mg PO QDAY 08/04/18 08/04/18 Unknown History allopurinoL [Zyloprim] 200 mg PO QDAY 08/04/18 08/04/18 Unknown History ED Physical Exam - General Limitations: Other General appearance: alert, in no apparent distress - Head Head exam: Present: atraumatic, normocephalic - Eye Eye exam: Present: normal appearance, PERRL, EOMI - ENT ENT exam: Present: mucous membranes moist - Neck Neck exam: Present: normal inspection - Respiratory Respiratory exam: Present: normal lung sounds bilaterally, chest wall tenderness (Left anterior ribs). Absent: respiratory distress, wheezes, rales, rhonchi, accessory muscle use - Cardiovascular Cardiovascular Exam: Present: regular rate, normal rhythm, normal heart sounds. Absent: systolic murmur, diastolic murmur, rubs, gallop - GI/Abdominal GI/Abdominal exam: Present: soft, normal bowel sounds. Absent: distended, tenderness, guarding, rebound - Extremities Exam Extremities exam: Present: normal inspection - Back Exam Back exam: Present: normal inspection - Neurological Exam Neurological exam: Present: alert, oriented X3 - Psychiatric Psychiatric exam: Present: normal affect, normal mood - Skin Skin exam: Present: warm, dry, intact, normal color. Absent: rash ED Course Vital Signs 04/18/20 04/18/20 04/18/20 15:16 17:45 17:49 Temperature 98.0 F Pulse Rate 93 H 89 Respiratory 18 19 19 Rate Blood Pressure 105/48 Blood Pressure 152/74 [Left] O2 Sat by Pulse 97 96 96 Oximetry ED Medical Decision Making - Lab Data Result diagrams: 04/18/20 15:22 04/18/20 15:22 Lab Results 04/18/20 04/18/20 04/18/20 Range/Units 15:22 15:22 15:22 WBC 6.5 (4.5-11.0) K/mm3 RBC 3.39 L (3.65-5.03) M/mm3 Hgb 11.4 (10.1-14.3) gm/dl Hct 33.4 (30.3-42.9) % MCV 99 H (79-97) fl MCH 34 H (28-32) pg MCHC 34 (30-34) % RDW 15.9 H (13.2-15.2) % Plt Count 224 (140-440) K/mm3 Sodium 133 L (137-145) mmol/L Potassium 4.3 (3.6-5.0) mmol/L Chloride 99.4 (98-107) mmol/L Carbon Dioxide 27 (22-30) mmol/L Anion Gap 11 mmol/L BUN 10 (7-17) mg/dL Creatinine 1.0 (0.6-1.2) mg/dL Estimated GFR > 60 ml/min BUN/Creatinine Ratio 10 % Glucose 142 H (65-100) mg/dL Calcium 9.1 (8.4-10.2) mg/dL Total Bilirubin 1.30 H (0.1-1.2) mg/dL AST 67 H (5-40) units/L ALT 37 (7-56) units/L Alkaline Phosphatase 192 H (35-129) units/L Troponin T < 0.010 (0.00-0.029) ng/mL Total Protein 9.4 H (6.3-8.2) g/dL Albumin 2.4 L (3.9-5) g/dL Albumin/Globulin Ratio 0.3 % Urine Color (Yellow) Urine Turbidity (Clear) Urine pH (5.0-7.0) Ur Specific [place] (1.003-1.030) Urine Protein (Negative) mg/dL Urine Glucose (UA) (Negative) mg/dL Urine Ketones (Negative) mg/dL Urine Blood (Negative) Urine Nitrite (Negative) Urine Bilirubin (Negative) Urine Urobilinogen (<2.0) mg/dL Ur Leukocyte Esterase (Negative) Urine WBC (Auto) (0.0-6.0) /HPF Urine RBC (Auto) (0.0-6.0) /HPF Hyaline Casts /LPF Urine Mucus /HPF Urine Yeast (Budding) /HPF 04/18/20 Range/Units 17:43 WBC (4.5-11.0) K/mm3 RBC (3.65-5.03) M/mm3 Hgb (10.1-14.3) gm/dl Hct (30.3-42.9) % MCV (79-97) fl MCH (28-32) pg MCHC (30-34) % RDW (13.2-15.2) % Plt Count (140-440) K/mm3 Sodium (137-145) mmol/L Potassium (3.6-5.0) mmol/L Chloride (98-107) mmol/L Carbon Dioxide (22-30) mmol/L Anion Gap mmol/L BUN (7-17) mg/dL Creatinine (0.6-1.2) mg/dL Estimated GFR ml/min BUN/Creatinine Ratio % Glucose (65-100) mg/dL Calcium (8.4-10.2) mg/dL Total Bilirubin (0.1-1.2) mg/dL AST (5-40) units/L ALT (7-56) units/L Alkaline Phosphatase (35-129) units/L Troponin T (0.00-0.029) ng/mL Total Protein (6.3-8.2) g/dL Albumin (3.9-5) g/dL Albumin/Globulin Ratio % Urine Color Yellow (Yellow) Urine Turbidity Clear (Clear) Urine pH 8.0 H (5.0-7.0) Ur Specific [place] 1.009 (1.003-1.030) Urine Protein <15 mg/dl (Negative) mg/dL Urine Glucose (UA) Neg (Negative) mg/dL Urine Ketones Neg (Negative) mg/dL Urine Blood Mod (Negative) Urine Nitrite Neg (Negative) Urine Bilirubin Neg (Negative) Urine Urobilinogen 2.0 (<2.0) mg/dL Ur Leukocyte Esterase Neg (Negative) Urine WBC (Auto) 3.0 (0.0-6.0) /HPF Urine RBC (Auto) 82.0 (0.0-6.0) /HPF Hyaline Casts 7 /LPF Urine Mucus Few /HPF Urine Yeast (Budding) 1+ /HPF - Radiology Data LEFT RIBS 3 VIEWS INDICATION / CLINICAL INFORMATION: Left rib pain after a fall last night. COMPARISON: 08/04/18 FINDINGS: RIBS: Virtually nondisplaced fracture of the posterolateral left 6th, 7th, and 8th ribs. LUNGS: Chronic bilateral interstitial opacities are unchanged. No pneumothorax. Signer Name: Doug Carbajal MD Signed: 04/18/2020 3:48 PM Workstation Name: [id number] - Medical Decision Making Patient does have 3 nondisplaced rib fractures with no evidence of pneumothorax. Patient given medication for symptomatic relief for pain. Patient blood pressure was slightly low on arrival and with the UTI her daughter's granddaughter states she has been eating and drinking slightly less. Given a liter of fluid and blood pressure is improved. Patient is appears stable for outpatient therapy. Critical care attestation.: If time is entered above; I have spent that time in minutes in the direct care of this critically ill patient, excluding procedure time. ED Disposition Clinical Impression: Ribs, multiple fractures, Mild dehydration Disposition: DC-01 TO HOME OR SELFCARE Is pt being admited?: No Does the pt Need Aspirin: No Condition: Stable Instructions: Dehydration, Adult, [id number], Rib Fracture, [id number] Referrals: TADEO DONOVAN MD [Primary Care Provider] - 3-5 Days Time of Disposition: 18:30
[2020-04-18 19:53] VITALS: BP 168/83
== END 2020-04-18 19:53 | disposition home or self-care (01) ==
LOC: ED 14:55
DX: S22.49XA Multiple fractures of ribs, unspecified side, initial encounter for closed fracture (principal); E86.0 Dehydration; I10 Essential (primary) hypertension; I25.2 Old myocardial infarction; J44.9 Chronic obstructive pulmonary disease, unspecified; M19.90 Unspecified osteoarthritis, unspecified site; I25.10 Atherosclerotic heart disease of native coronary artery without angina pectoris; M10.9 Gout, unspecified; Z79.899 Other long term (current) drug therapy; Z88.2 Allergy status to sulfonamides; Z88.8 Allergy status to other drugs, medicaments and biological substances; Z90.710 Acquired absence of both cervix and uterus; Z87.891 Personal history of nicotine dependence; Z90.49 Acquired absence of other specified parts of digestive tract; Z88.0 Allergy status to penicillin; W01.0XXA Fall on same level from slipping, tripping and stumbling without subsequent striking against object, initial encounter; Y93.89 Activity, other specified; Y92.89 Other specified places as the place of occurrence of the external cause; Y99.8 Other external cause status
CPT/HCPCS: 36415; 71101; 80053; 81001; 84484; 85027; 96360; 96361; 99284; J7030

== ENCOUNTER 2020-06-10 08:56 | Emergency (ER) | payer MEDICARE ==
--- NOTE | 2020-06-10 09:24 | Emergency Department Report ---
Blank Doc - Documentation Documentation: 84-year-old female that was brought by daughter for unknown fall from bed. Oc king stated she is unsure how she fell from bed and when daughter arrived to her room she seen her next to her bed on the floor. Patient is currently on blood thinners. As per daughter patient is hypotensive in triage. 1- This initial assessment/diagnostic orders/clinical plan/ treatment(s) is/are subject to change based on pt's health status, clinical progression and re- assessment by fellow clinical providers in the ED. Further treatment and workup at subsequent clinical provers discretion. Patient/guardians urged not to elope from ED as their condition may be serious if not clinically assessed and managed. 2-CT imaging 3-labs/EKG
[2020-06-10] MEDS ORDERED: SODIUM CHLORIDE 0.9% 500 ML 500 ML IV ONE (10:10)
--- NOTE | 2020-06-10 10:10 | Emergency Department Report ---
ED General Adult HPI - General Chief complaint: Fall Stated complaint: BACK AND HEAD PAIN Time Seen by Provider: 06/10/20 09:21 Source: patient, family Mode of arrival: Wheelchair Limitations: Physical Limitation - History of Present Illness Initial comments: This is an 84-year-old female who arrives accompanied by her daughter. Her daughter states that EMS was summoned to the home after an apparent patient fall. Fall was unwitnessed. The patient was found seated on the floor against the wall across from her bed. She did not call for assistance. It was presumed that she fell daughter's nephew. The daughter went to check the patient and found her to have diffuse back pain on palpation. It was a localized. There is no report of headache or neck pain. There was no loss of consciousness that was apparent. There is no alteration of consciousness that was apparent. The patient ordinarily calls for assistance before she gets out of bed per the daughter. It was unclear as to whether she usually uses a walker. However, a walker was not utilized at the time of this event. Patient is noted to have a low blood pressure in triage of 90 systolic approximately. It was improved upon bed placement prior to IV fluids. Heart rate was normal. Recent hospitalization was reviewed. Patient is noted to be on oral anticoagulation therapy. Family states that she has not fallen since her last hospitalization here in April. On my encounter, patient has no pain complaint whatsoever. She specifically denies headache neck pain or back pain/abdominal pain. She states that she is back to normal. Hospitalization 04/29/20: Condition: Fair Hospital course: Subjective Date of service: 04/28/20 Principal diagnosis: UTI, encephalopathy, SIRS Interval history: 84-year-old female with known history of coronary artery disease, GERD, hyperlipidemia, COPD, recurrent UTI, atrial fibrillation on Eliquis, pulmonary hypertension, presenting to the emergency room today with complaints of for multiple falls within the last few days. Patient was also said to have been confused and had some visual hallucinations. Patient able to answer questions appropriately and appeared coherent at this moment. According to granddaughter who was by the bedside she had noticed some mental decline lately. Patient was started primary care physician's office-Dr. Donovan earlier today was recommended that she should report to the emergency room for further evaluation. Patient has sustained some bruises on her knees and forehead secondary to her fall. Work-up in the emergency room today reveals urinary tract infection. CT scan of the head and x-ray of the knees were unremarkable. Patient is being admitted for altered mental status, UTI and history of multiple falls 04/27/2020 UTI with bacteremia Acute encephalopathy 04/28/2020 UTI with bacteremia Acute encephalopathy improved to a large extent Patient near baseline 04/29/20 UTI with bacteremia E. coli in the cultures Discussed with daughter about discharge and daughter is agreeable Patient to be discharged on Ceftin 500 twice daily Assessment and Plan - Patient Problems (1) UTI (urinary tract infection) Current Visit: Yes Status: Acute Plan to address problem: Gram-negative rods in the urine culture Identification and sensitivity pending (2) Acute encephalopathy Current Visit: Yes Status: Acute Plan to address problem: Secondary to UTI Gram-negative rods with identification to follow IV ceftriaxone initiated at 2 g every 24 hours (3)SIRS Secondary to UTI No sepsis Gram-negative rods in the urine culture Altered sensorium (4) Hypertension Current Visit: Yes Status: Acute Plan to address problem: Blood pressure appears stable. We will continue routine home medications and monitor vital signs closely. (5) CAD (coronary artery disease) Current Visit: No Status: Chronic Qualifiers: Coronary Disease-Associated Artery/Lesion type: [place] artery [place] vs. transplanted heart: [place] heart Plan to address problem: Stable. We will continue routine home medications. (6) COPD (chronic obstructive pulmonary disease) Current Visit: No Status: Chronic Plan to address problem: We will continue patient's inhalers as needed. (7) Hyperlipidemia Current Visit: No Status: Chronic Plan to address problem: We will monitor lipid profile and continue statin. (8) Frequent falls Current Visit: Yes Status: Acute Plan to address problem: Patient will be placed on fall precautions. We will request physical therapy evaluation. (9) DVT prophylaxis Current Visit: No Status: Acute Plan to address problem: Patient currently on anticoagulation. (10) Full code status Current Visit: Yes Status: Acute Plan to address problem: Patient is a full code. 137 -: unknown Location: back (Unknown but as above) - Related Data Home Medications Medication Instructions Recorded Confirmed Last Taken Benzonatate [Tessalon Perles] 100 mg PO Q8HR 08/04/18 04/27/20 Unknown Previous Rx's Medication Instructions Recorded Last Taken Type Aspirin [Aspirin BABY CHEW TAB] 81 mg PO DAILY #100 tab.chew 04/28/18 Unknown Rx HYDROcodone/APAP 5-325 [[place] 1 each PO Q8HR PRN #10 tablet 04/18/20 Unknown Rx 5/325] Nitrofurantoin Piute/M-Cryst 100 mg PO Q12HR 7 Days #14 capsule 04/26/20 Unknown Rx [Macrobid CAP] Albuterol Mdi (or & Nicu Only) 2 puff IH TID PRN #1 04/29/20 Unknown Rx [ProAir HFA Inhaler] Apixaban [Eliquis] 5 mg PO Q12HR #60 tablet 04/29/20 Unknown Rx Arformoterol Nebu [Brovana Nebu] 15 mcg IH BIDRT #60 ml 04/29/20 Unknown Rx AtorvaSTATin [Lipitor] 20 mg PO QHS #30 tablet 04/29/20 Unknown Rx Budesonide [Pulmicort Respules] 0.5 mg IH BIDRT #60 nebu 04/29/20 Unknown Rx Cefuroxime Axetil [Ceftin] 500 mg PO Q12H #16 04/29/20 Unknown Rx Fluticasone/Salmeterol [Advair 1 puff IH BID #1 disk.w.dev 04/29/20 Unknown Rx Diskus 250-50 mcg] Oxybutynin [Ditropan] 5 mg PO TID #90 tablet 04/29/20 Unknown Rx Pantoprazole [Protonix TAB] 20 mg PO QDAY #30 tablet. 04/29/20 Unknown Rx Ranolazine ER [Ranexa ER] 1,000 mg PO BID #60 tablet 04/29/20 Unknown Rx Tolterodine (Nf) [Detrol LA] 4 mg PO QDAY #30 cap 04/29/20 Unknown Rx allopurinoL [Zyloprim] 200 mg PO QDAY #30 tablet 04/29/20 Unknown Rx carvediloL [Coreg] 3.125 mg PO Q12H #60 tablet 04/29/20 Unknown Rx Allergies Allergy/AdvReac Type Severity Reaction Status Date / Time Penicillins Allergy Severe EVRYTHING Verified 06/10/20 09:21 SWELLS Sulfa (Sulfonamide Allergy Mild Itching Verified 06/10/20 09:21 Antibiotics) azithromycin [From Zithromax] Allergy Itching Verified 06/10/20 09:21 iv dye Allergy Unknown Uncoded 06/10/20 09:21 ED Review of Systems ROS: Stated complaint: BACK AND HEAD PAIN Other details as noted in HPI Constitutional: denies: chills, fever Eyes: denies: eye pain, vision change ENT: denies: ear pain, throat pain Respiratory: denies: cough, shortness of breath Cardiovascular: denies: chest pain, palpitations Endocrine: no symptoms reported Gastrointestinal: denies: abdominal pain, vomiting Genitourinary: denies: urgency, dysuria Musculoskeletal: as per HPI, back pain Skin: denies: rash, lesions Neurological: denies: headache, weakness, paresthesias Psychiatric: denies: anxiety, depression Hematological/Lymphatic: other (Oral anticoagulant therapy. Family noted no bruising) ED Past Medical Hx - Past Medical History Hx Hypertension: Yes Hx Heart Attack/AMI: Yes Hx Congestive Heart Failure: No Hx Deep Vein Thrombosis: No Hx Pulmonary Embolism: No Hx Arthritis: Yes Hx Asthma: No Hx COPD: Yes Hx Tuberculosis: No Hx HIV: No Additional medical history: angina, gout. cad - Surgical History Hx Coronary Stent: Yes Hx Open Heart Surgery: Yes Hx Pacemaker: No Hx Internal Defibrillator: No Hx Cholecystectomy: Yes Hx Appendectomy: No Hx Breast Surgery: No Additional Surgical History: hysterectomy. CABG. - Social History Smoking Status: Never Smoker Substance Use Type: None - Medications Home Medications: Home Medications Medication Instructions Recorded Confirmed Last Taken Type Aspirin [Aspirin BABY CHEW TAB] 81 mg PO DAILY #100 tab.chew 04/28/18 04/27/20 Unknown Rx Benzonatate [Tessalon Perles] 100 mg PO Q8HR 08/04/18 04/27/20 Unknown History HYDROcodone/APAP 5-325 [[place] 1 each PO Q8HR PRN #10 tablet 04/18/20 04/27/20 Unknown Rx 5/325] Nitrofurantoin [place]/M-Cryst 100 mg PO Q12HR 7 Days #14 capsule 04/26/20 Unknown Rx [Macrobid CAP] Albuterol Mdi (or & Nicu Only) 2 puff IH TID PRN #1 04/29/20 Unknown Rx [ProAir HFA Inhaler] Apixaban [Eliquis] 5 mg PO Q12HR #60 tablet 04/29/20 Unknown Rx Arformoterol Nebu [Brovana Nebu] 15 mcg IH BIDRT #60 ml 04/29/20 Unknown Rx AtorvaSTATin [Lipitor] 20 mg PO QHS #30 tablet 04/29/20 Unknown Rx Budesonide [Pulmicort Respules] 0.5 mg IH BIDRT #60 nebu 04/29/20 Unknown Rx Cefuroxime Axetil [Ceftin] 500 mg PO Q12H #16 04/29/20 Unknown Rx Fluticasone/Salmeterol [Advair 1 puff IH BID #1 disk.w.dev 04/29/20 Unknown Rx Diskus 250-50 mcg] Oxybutynin [Ditropan] 5 mg PO TID #90 tablet 04/29/20 Unknown Rx Pantoprazole [Protonix TAB] 20 mg PO QDAY #30 tablet. 04/29/20 Unknown Rx Ranolazine ER [Ranexa ER] 1,000 mg PO BID #60 tablet 04/29/20 Unknown Rx Tolterodine (Nf) [Detrol LA] 4 mg PO QDAY #30 cap 04/29/20 Unknown Rx allopurinoL [Zyloprim] 200 mg PO QDAY #30 tablet 04/29/20 Unknown Rx carvediloL [Coreg] 3.125 mg PO Q12H #60 tablet 04/29/20 Unknown Rx ED Physical Exam - General Limitations: Physical Limitation General appearance: alert, in no apparent distress - Head Head exam: Present: atraumatic, normocephalic - Eye Eye exam: Present: normal appearance. Absent: scleral icterus - ENT ENT exam: Present: mucous membranes moist - Neck Neck exam: Present: normal inspection. Absent: tenderness, meningismus - Respiratory Respiratory exam: Present: normal lung sounds bilaterally. Absent: respiratory distress - Cardiovascular Cardiovascular Exam: Present: regular rate, normal rhythm. Absent: systolic murmur, diastolic murmur, rubs, gallop - GI/Abdominal GI/Abdominal exam: Present: soft, normal bowel sounds. Absent: distended, tenderness, guarding, rebound, rigid - Extremities Exam Extremities exam: Present: other (Hands are noted to be a bit cool with pale nailbeds. Radial pulses are strong bilaterally.) - Back Exam Back exam: Present: normal inspection. Absent: tenderness, CVA tenderness (R), CVA tenderness (L), muscle spasm, paraspinal tenderness, vertebral tenderness - Neurological Exam Neurological exam: Present: alert, oriented X3, CN II-XII intact. Absent: motor sensory deficit - Psychiatric Psychiatric exam: Present: normal affect, normal mood - Skin Skin exam: Present: warm, dry, intact. Absent: rash ED Course Vital Signs 06/10/20 06/10/20 06/10/20 09:15 10:23 10:27 Temperature 97.6 F Pulse Rate 91 H Respiratory 14 14 Rate Blood Pressure 92/52 O2 Sat by Pulse 94 98 98 Oximetry 06/10/20 06/10/20 06/10/20 10:30 10:46 11:00 Temperature Pulse Rate 90 89 93 H Respiratory 15 18 15 Rate Blood Pressure 109/54 109/54 122/66 O2 Sat by Pulse 97 98 Oximetry 06/10/20 06/10/20 06/10/20 11:20 11:30 11:46 Temperature Pulse Rate 86 83 83 Respiratory 11 L 16 15 Rate Blood Pressure 122/66 126/68 126/68 O2 Sat by Pulse 94 98 98 Oximetry 06/10/20 06/10/20 06/10/20 12:00 12:16 12:30 Temperature Pulse Rate 89 85 88 Respiratory 13 17 18 Rate Blood Pressure 128/66 122/66 130/71 O2 Sat by Pulse 97 98 97 Oximetry 06/10/20 06/10/20 06/10/20 12:46 13:00 13:16 Temperature Pulse Rate 87 92 H 86 Respiratory 14 19 17 Rate Blood Pressure 130/71 130/71 143/73 O2 Sat by Pulse 98 99 Oximetry 06/10/20 06/10/20 06/10/20 13:30 13:46 14:00 Temperature Pulse Rate 88 94 H 91 H Respiratory 13 16 13 Rate Blood Pressure 128/71 128/71 121/64 O2 Sat by Pulse 97 99 96 Oximetry - Reevaluation(s) Reevaluation #1: Patient continues to be asymptomatic. Her blood pressure has remained in the normal range. She was reassessed and again on. There is no signs of abdominal trauma. There is no thoracic cage tenderness to palpation. She does not have any increasing ecchymoses. Rib fractures on current study noted. Previous study in 2019 indicated: Ordering Physician: NANCY PLASCENCIA Date of Service: 04/18/20 Procedure(s): XR ribs UNI w PA chest 3+V LT Accession Number(s): [id number] cc: NANCY KWANSuryaBUD Fluoro Time In Minutes: LEFT RIBS 3 VIEWS INDICATION / CLINICAL INFORMATION: Left rib pain after a fall last night. COMPARISON: 08/04/18 FINDINGS: RIBS: Virtually nondisplaced fracture of the posterolateral left 6th, 7th, and 8th ribs. LUNGS: Chronic bilateral interstitial opacities are unchanged. No pneumothorax. Thereby the rib fractures are chronic. Small amount of fluid around the hepatic lobe is deemed to be nontraumatic. There is no evidence of right chest or abdominal trauma. Patient is appropriate for outpatient disposition. I discussed her Eliquis and the fall risk with her. She sees Dr. Tadeo Donovan. I have asked the daughter to call Dr. Tadeo Donovan to arrange for follow-up and counseling as to whether or not he wants to continue the Eliquis in view of the above. 06/10/20 13:12 06/10/20 13:15 She is no longer in atrial fibrillation. Reevaluation #2: Patient had transient hypotension. This required no intervention. She has been observed for quite some time with her blood pressure remaining in the normal range. Apparently she was not hypotensive in the field. 06/10/20 15:06 06/10/20 15:07 She is on a very small dose of carvedilol. I think it is fine to continue this. Her sodium was slightly low. Perhaps she was slightly dehydrated. Increase fluids are recommended. Outpatient follow-up tomorrow is recommended. 06/10/20 15:08 ED Medical Decision Making - Lab Data Result diagrams: 06/10/20 09:29 06/10/20 09:29 Laboratory Results - last 24 hr 06/10/20 06/10/20 06/10/20 09:29 09:29 09:29 WBC 5.2 RBC 3.75 Hgb 12.1 Hct 36.9 MCV 98 H MCH 32 MCHC 33 RDW 19.3 H Plt Count 203 Lymph % (Auto) 31.3 Piute % (Auto) 4.8 Eos % (Auto) 1.6 Baso % (Auto) 0.9 Lymph # (Auto) 1.6 [place] # (Auto) 0.2 Eos # (Auto) 0.1 Baso # (Auto) 0.0 Seg Neutrophils % 61.4 Seg Neutrophils # 3.2 PT 15.6 H INR 1.24 H APTT 35.1 Sodium 132 L Potassium 4.6 Chloride 101.6 Carbon Dioxide 22 Anion Gap 13 BUN 9 Creatinine 0.8 Estimated GFR > 60 BUN/Creatinine Ratio 11 Glucose 140 H Calcium 9.0 Total Bilirubin 1.20 AST 46 H ALT 26 Alkaline Phosphatase 216 H Troponin T < 0.010 Total Protein 8.7 H Albumin 2.5 L Albumin/Globulin Ratio 0.4 Laboratory Results - last 24 hr 06/10/20 06/10/20 06/10/20 09:29 09:29 09:29 WBC 5.2 RBC 3.75 Hgb 12.1 Hct 36.9 MCV 98 H MCH 32 MCHC 33 RDW 19.3 H Plt Count 203 Lymph % (Auto) 31.3 Piute % (Auto) 4.8 Eos % (Auto) 1.6 Baso % (Auto) 0.9 Lymph # (Auto) 1.6 [place] # (Auto) 0.2 Eos # (Auto) 0.1 Baso # (Auto) 0.0 Seg Neutrophils % 61.4 Seg Neutrophils # 3.2 PT 15.6 H INR 1.24 H APTT 35.1 Sodium 132 L Potassium 4.6 Chloride 101.6 Carbon Dioxide 22 Anion Gap 13 BUN 9 Creatinine 0.8 Estimated GFR > 60 BUN/Creatinine Ratio 11 Glucose 140 H Calcium 9.0 Total Bilirubin 1.20 AST 46 H ALT 26 Alkaline Phosphatase 216 H Troponin T < 0.010 Total Protein 8.7 H Albumin 2.5 L Albumin/Globulin Ratio 0.4 Urine Color Urine Turbidity Urine pH Ur Specific Eldred Urine Protein Urine Glucose (UA) Urine Ketones Urine Blood Urine Nitrite Urine Bilirubin Urine Urobilinogen Ur Leukocyte Esterase Urine WBC (Auto) Urine RBC (Auto) Urine Mucus 06/10/20 06/10/20 12:36 13:39 WBC RBC Hgb Hct MCV MCH MCHC RDW Plt Count Lymph % (Auto) Piute % (Auto) Eos % (Auto) Baso % (Auto) Lymph # (Auto) [place] # (Auto) Eos # (Auto) Baso # (Auto) Seg Neutrophils % Seg Neutrophils # PT INR APTT Sodium Potassium Chloride Carbon Dioxide Anion Gap BUN Creatinine Estimated GFR BUN/Creatinine Ratio Glucose Calcium Total Bilirubin AST ALT Alkaline Phosphatase Troponin T < 0.010 Total Protein Albumin Albumin/Globulin Ratio Urine Color Judi Urine Turbidity Clear Urine pH 7.0 Ur Specific [place]red 1.013 Urine Protein <15 mg/dl Urine Glucose (UA) Neg Urine Ketones Neg Urine Blood Neg Urine Nitrite Neg Urine Bilirubin Neg Urine Urobilinogen 4.0 Ur Leukocyte Esterase Neg Urine WBC (Auto) 2.0 Urine RBC (Auto) 14.0 Urine Mucus Few - EKG Data -: EKG Interpreted by Me EKG shows normal: sinus rhythm, axis (Leftward axis), intervals, QRS complexes, ST-T waves Rate: tachycardia - EKG Data When compared to previous EKG there are: no significant change Interpretation: unchanged when compared t (2019), other (Anterior rotation in the horizontal plane. Repolarization abnormalities are similar to prior EKG.) - Radiology Data Radiology results: report reviewed, image reviewed FINDINGS: Lungs/bones: Increased interstitial prominence with bilateral pulmonary opacities and emphysematous change in the lower lungs Abdomen/pelvis: Diffuse nodularity throughout the liver suggests cirrhosis. Adrenal glands appear normal. Fatty infiltration of the pancreas. Spleen is unremarkable. No definite renal stones are s een. Small amount of fluid is seen surrounding the right hepatic lobe with several surgical clips identified. Atherosclerotic changes seen throughout the aorta. Rounded density within the deep pelvis suggest right adnexa. No free fluid is otherwise seen in the abdomen or pelvis. Mild edema in the body wall. Diffuse osteopenia seen throughout. Advanced degenerative change in bilateral hips. Degenerative change of the sacrum multiple left rib fractures of uncertain age. IMPRESSION: 1. Multiple left rib fractures of uncertain age. 2. Cirrhosis with small amount of ascites adjacent right hepatic lobe. No large hematoma or free fluid in the abdomen or pelvis. 3. Coronary artery disease. 4. Diffuse osteopenia seen throughout. Mild wedging of several thoracic spine vertebral bodies however uncertain age. No severe compression retropulsion. Signer Name: Roshan Juarez MD Signed: 06/10/2020 11:[address] of the head and cervical spine no acute process. Critical care attestation.: If time is entered above; I have spent that time in minutes in the direct care of this critically ill patient, excluding procedure time. ED Disposition Clinical Impression: Hypotensive episode, Hyponatremia Fall Qualifiers: Encounter type: initial encounter Qualified Code(s): W19.XXXA - Unspecified fall, initial encounter Disposition: - TO HOME OR SELFCARE Is pt being admited?: No Does the pt Need Aspirin: No Condition: Stable Instructions: Hypotension, [id number] Additional Instructions: The first blood pressure reading was somewhat low. Perhaps, you were slightly dehydrated. I would recommend increase fluids. I would recommend that you check your blood pressure again tonight. Return to the emergency department if you feel weak or have any recurrent symptoms. Otherwise follow-up with Dr. Donovan tomorrow. Referrals: TADEO DONOVAN MD [Primary Care Provider] - 24 Hours Time of Disposition: 15:10
[2020-06-10 10:34] LABS: Basophils % (Auto) 0.9 % (0.0-1.8); Eosinophils # (Auto) 0.1 K/mm3 (0.0-0.4); Eosinophils % (Auto) 1.6 % (0.0-4.3); Hematocrit 36.9 % (30.3-42.9); Hemoglobin 12.1 gm/dl (10.1-14.3); Lymphocytes # (Auto) 1.6 K/mm3 (1.2-5.4); Lymphocytes % (Auto) 31.3 % (13.4-35.0); Mean Corpuscular HGB Conc 33 % (30-34); Mean Corpuscular Volume 98 fl (79-97); Monocytes # (Auto) 0.2 K/mm3 (0.0-0.8); Monocytes % (Auto) 4.8 % (0.0-7.3); Platelet Count 203 K/mm3 (140-440); Red Blood Count 3.75 M/mm3 (3.65-5.03); Red Cell Distribution Width 19.3 % (13.2-15.2)
[2020-06-10 10:46] LABS: INR 1.24 (0.87-1.13)
[2020-06-10 10:47] LABS: Partial Thromboplastin Time 35.1 Sec. (24.2-36.6)
[2020-06-10 11:02] LABS: Alanine Aminotransferase 26 units/L (7-56); Albumin 2.5 g/dL (3.9-5); BUN/Creatinine Ratio 11; Blood Urea Nitrogen 9 mg/dL (7-17); Hemolysis Index 38
--- NOTE | 2020-06-10 11:28 | Cat Scan Report ---
CT HEAD WITHOUT CONTRAST INDICATION / CLINICAL INFORMATION: fall on blood thinners. TECHNIQUE: All CT scans at this location are performed using CT dose reduction for ALARA by means of automated e xposure control. COMPARISON: 04/26/2020 FINDINGS: ADDITIONAL FINDINGS: Diffuse periventricular and central white matter areas of low-attenuation sugges ting chronic small vessel disease. No acute intracranial hemorrhage. No midline shift or mass effect. Sinuses are clear. Mild diffuse atrophy IMPRESSION: 1. No acute intracranial abnormality. Signer Name: Roshan Juarez MD Signed: 06/10/2020 11:24 AM Workstation Name: [id number]
--- NOTE | 2020-06-10 11:37 | Cat Scan Report ---
CT ABDOMEN AND PELVIS WITHOUT CONTRAST HISTORY: abd pain fall anti-coag hypotension. COMPARISON: None. TECHNIQUE: CT images of the abdomen and pelvis were obtained without administration of intravenous co ntrast. All CT scans at this location are performed using CT dose reduction for ALARA by means of au tomated exposure control. FINDINGS: Lungs/bones: Increased interstitial prominence with bilateral pulmonary opacities and emphysematous change in the lower lungs Abdomen/pelvis: Diffuse nodularity throughout the liver suggests cirrhosis. Adrenal glands appear no rmal. Fatty infiltration of the pancreas. Spleen is unremarkable. No definite renal stones are seen. Small amount of fluid is seen surrounding the right hepatic lobe with several surgical clips identifi ed. Atherosclerotic changes seen throughout the aorta. Rounded density within the deep pelvis suggest right adnexa. No free fluid is otherwise seen in the abdomen or pelvis. Mild edema in the body wall. Diffuse osteopenia seen throughout. Advanced degenerative change in bilateral hips. Degenerative hcow ge of the sacrum multiple left rib fractures of uncertain age. IMPRESSION: 1. Multiple left rib fractures of uncertain age. 2. Cirrhosis with small amount of ascites adjacent right hepatic lobe. No large hematoma or free flui d in the abdomen or pelvis. 3. Coronary artery disease. 4. Diffuse osteopenia seen throughout. Mild wedging of several thoracic spine vertebral bodies howeve r uncertain age. No severe compression retropulsion. Signer Name: Roshan Juarez MD Signed: 06/10/2020 11:33 AM Workstation Name: [id number]
--- NOTE | 2020-06-10 11:46 | Cat Scan Report ---
CT CERVICAL SPINE WITHOUT CONTRAST INDICATION / CLINICAL INFORMATION: Trauma. Patient fell. TECHNIQUE: Axial CT images were obtained through the cervical spine. Sagittal and coronal reformatted images wer e produced. All CT scans at this location are performed using CT dose reduction for ALARA by means of automated exposure control. COMPARISON: CT cervical spine 01/20/2017 FINDINGS: ALIGNMENT: No significant abnormality. There is no indication of traumatic subluxation. VERTEBRAE: No indication of fracture or bone destruction. DISC SPACES: Loss of disc height is noted at the C3-4 and C4-5 levels were near complete loss of disc height is noted. Milder loss of disc height is demonstrated at C6-7. Disc vacuum phenomena is presen t at C3-4. DEGENERATIVE CHANGES: Reactive change secondary to degenerative disc disease is observed at inferior endplate C3 and superior endplate C4. Anterior osteophyte formation is noted at C3-4, C4-5, C5-6 and C6-7 levels. Mild posterior osteophyte is observed at the C3-4 level. Uncovertebral arthropathy is pr esent throughout the cervical region. Bilateral neuroforaminal narrowing secondary to uncovertebral a rthropathy is present at multiple levels. CRANIOCERVICAL JUNCTION:No significant abnormality. SPINAL CANAL: Central spinal canal is adequately maintained throughout. PARASPINAL SOFT TISSUES: Calcified atherosclerotic plaque is demonstrated at the carotid bifurcations . Soft tissue neck has an otherwise unremarkable appearance. LUNG APICES: No significant abnormality of visualized lungs. IMPRESSION: 1. No indication of fracture or traumatic subluxation. 2. Widespread cervical spondylosis. 3. No significant change compared to 01/20/2017. Signer Name: Josue Keen MD Signed: 06/10/2020 11:42 AM Workstation Name: [id number]
[2020-06-10 14:19] LABS: Bilirubin,Urine NEG (Negative); Blood,Urine NEG (Negative); Color,Urine Amber (Yellow); Mucus,Urine FEW /HPF; Protein,Urine <15 mg/dL mg/dL (Negative)
[2020-06-10 15:50] VITALS: BP 153/82
--- NOTE | 2020-06-12 12:54 | Electrocardiograph Report ---
[facility] Test Date: 2020-06-10 Test Time: 09:46:07 Pat Name: RUDOLPH LEE Department: Room: Gender: F Hospitalist Nocturnist Physician: STACY : [id number] Requested By: ALISHA MONTENEGRO Order Number: [id number] Reading MD: Radha Yo Measurements Intervals [place] Rate: 102 P: 60 [place]: 140 QRS: -28 QRSD: 84 T: -16 QT: 369 QTc: 480 Interpretive Statements Sinus tachycardia Left axis deviation Repol abnrm suggests ischemia, anterolateral No previous ECG available for comparison Electronically Signed On 06-12-2020 12:53:51 EDT by Radha Yo
== END 2020-06-10 15:50 | disposition home or self-care (01) ==
LOC: ED 08:56
DX: E87.1 Hypo-osmolality and hyponatremia (principal); I95.9 Hypotension, unspecified; R51.9 Headache, unspecified; R10.9 Unspecified abdominal pain; I25.2 Old myocardial infarction; M19.91 Primary osteoarthritis, unspecified site; J44.9 Chronic obstructive pulmonary disease, unspecified; Z90.710 Acquired absence of both cervix and uterus; Z98.890 Other specified postprocedural states; Z79.899 Other long term (current) drug therapy; Z88.0 Allergy status to penicillin; Z88.2 Allergy status to sulfonamides; Z88.1 Allergy status to other antibiotic agents
CPT/HCPCS: 36415; 70450; 72125; 74176; 80053; 81001; 84484; 85025; 85610; 85730; 93005; 99284; J7040

== ENCOUNTER 2020-08-01 12:29 | Observation (INO) | payer MEDICARE ==
--- NOTE | 2020-08-01 13:15 | Event Note ---
ED Screening Note Date of service: 08/01/20 Time: 13:14 ED Screening Note: Patient complains of right knee pain and swelling and right toe pain History of gout Patient did have a fall couple days ago but injured the left knee at the time Significant tenderness to palpation of the right knee noted on exam with mild bruising Patient is on Eliquis This initial assessment/diagnostic orders/clinical plan/treatment(s) is/are subject to change based on patients health status, clinical progression and re- assessment by fellow clinical providers in the ED. Further treatment and workup at subsequent clinical providers discretion. Patient/guardian urged not to elope from the ED as their condition may be serious if not clinically assessed and managed. Initial orders include: X-ray
--- NOTE | 2020-08-01 14:02 | XRay Report ---
XR knee 4+V RT INDICATION / CLINICAL INFORMATION: Pain and swelling with bruising. COMPARISON: None available. FINDINGS: BONES/JOINT(S): No acute fracture or subluxation. Moderate tricompartmental DJD. No significant joint effusion. SOFT TISSUES: No significant abnormality. ADDITIONAL FINDINGS: None. Signer Name: Kane Mcbride MD Signed: 08/01/2020 1:58 PM Workstation Name: [id number]
--- NOTE | 2020-08-01 14:04 | XRay Report ---
Right foot 3 views INDICATION: Right foot pain. IMPRESSION: Moderate to severe degenerative changes involving the great toe MTP joint. There is nonsp ecific edema along the dorsal aspect of the forefoot. No discrete fracture or subluxation is identifi ed. Signer Name: Manolo Simmons MD Signed: 08/01/2020 2:00 PM Workstation Name: [id number]
[2020-08-01 16:30] LABS: Basophils % (Auto) 0.6 % (0.0-1.8); Eosinophils # (Auto) 0.2 K/mm3 (0.0-0.4); Eosinophils % (Auto) 4.3 % (0.0-4.3); Hematocrit 23.7 % (30.3-42.9); Hemoglobin 7.7 gm/dl (10.1-14.3); Lymphocytes # (Auto) 1.4 K/mm3 (1.2-5.4); Lymphocytes % (Auto) 27.6 % (13.4-35.0); Mean Corpuscular HGB Conc 32 % (30-34); Mean Corpuscular Volume 91 fl (79-97); Monocytes # (Auto) 0.3 K/mm3 (0.0-0.8); Monocytes % (Auto) 6.6 % (0.0-7.3); Platelet Count 230 K/mm3 (140-440)
[2020-08-01 16:39] LABS: Red Cell Distribution Width 21.2 % (13.2-15.2)
[2020-08-01] MEDS ORDERED: SODIUM CHLORIDE 0.9% 1000 ML IV SOLN IV ONE (16:45)
[2020-08-01] MEDS ORDERED: CEFEPIME/NS 2 GM/100 ML 2 GM/100 ML BAG IV ONE (16:45)
--- NOTE | 2020-08-01 16:50 | Emergency Department Report ---
ED General Adult HPI - General Chief complaint: Extremity Injury, Lower Stated complaint: RT KNEE PAIN/SWELLING PUI?: No Time Seen by Provider: 08/01/20 13:13 Source: patient Mode of arrival: Ambulatory Limitations: No Limitations - History of Present Illness Initial comments: Patient is an 84-year-old female who presents emergency room with complaints of weakness, right knee pain, falls. Patient's granddaughter at bedside. Granddaughter assisting with history of presenting illness. She fell and hit her right knee. Patient is been going on for couple months but is worse over the last 4 to 5 days. Patient states that she fell and hit her right knee. Patient been having pain and swelling to the right knee and right lower extremity. Patient has calf tenderness. Patient states the pain is better with rest and worse with movement and palpation. Patient states the pain is 10 out of 10. Patient states she is having difficulty walking and falling multiple times per day. Patient denies recent travel. Patient denies recent international travel. Patient denies exposure to the novel coronavirus. Patient denies sick contacts. Patient denies fever and chills. Patient denies cough. Patient denies diarrhea. Patient denies coming in contact with anybody with symptoms of the novel coronavirus. -: Sudden Location: right, lower extremity Severity scale (0 -10): 10 Quality: stabbing Consistency: constant Improves with: rest Worsens with: movement Associated Symptoms: weakness. denies: confusion, chest pain, cough, diaphoresis, fever/chills, headaches, loss of appetite, malaise, nausea/vomiting, rash, seizure, shortness of breath, syncope - Related Data Home Medications Medication Instructions Recorded Confirmed Last Taken Benzonatate [Tessalon Perles] 100 mg PO Q8HR 08/04/18 04/27/20 Unknown Previous Rx's Medication Instructions Recorded Last Taken Type Aspirin [Aspirin BABY CHEW TAB] 81 mg PO DAILY #100 tab.chew 04/28/18 Unknown Rx HYDROcodone/APAP 5-325 [[place] 1 each PO Q8HR PRN #10 tablet 04/18/20 Unknown Rx 5/325] Nitrofurantoin [place]/M-Cryst 100 mg PO Q12HR 7 Days #14 capsule 04/26/20 Unknown Rx [Macrobid CAP] Albuterol Mdi (or & Nicu Only) 2 puff IH TID PRN #1 04/29/20 Unknown Rx [ProAir HFA Inhaler] Apixaban [Eliquis] 5 mg PO Q12HR #60 tablet 04/29/20 Unknown Rx Arformoterol Nebu [Brovana Nebu] 15 mcg IH BIDRT #60 ml 04/29/20 Unknown Rx AtorvaSTATin [Lipitor] 20 mg PO QHS #30 tablet 04/29/20 Unknown Rx Budesonide [Pulmicort Respules] 0.5 mg IH BIDRT #60 nebu 04/29/20 Unknown Rx Cefuroxime Axetil [Ceftin] 500 mg PO Q12H #16 04/29/20 Unknown Rx Fluticasone/Salmeterol [Advair 1 puff IH BID #1 disk.w.dev 04/29/20 Unknown Rx Diskus 250-50 mcg] Oxybutynin [Ditropan] 5 mg PO TID #90 tablet 04/29/20 Unknown Rx Pantoprazole [Protonix TAB] 20 mg PO QDAY #30 tablet. 04/29/20 Unknown Rx Ranolazine ER [Ranexa ER] 1,000 mg PO BID #60 tablet 04/29/20 Unknown Rx Tolterodine (Nf) [Detrol LA] 4 mg PO QDAY #30 cap 04/29/20 Unknown Rx allopurinoL [Zyloprim] 200 mg PO QDAY #30 tablet 04/29/20 Unknown Rx carvediloL [Coreg] 3.125 mg PO Q12H #60 tablet 04/29/20 Unknown Rx Allergies Allergy/AdvReac Type Severity Reaction Status Date / Time Penicillins Allergy Severe EVRYTHING Verified 06/10/20 09:21 SWELLS Sulfa (Sulfonamide Allergy Mild Itching Verified 06/10/20 09:21 Antibiotics) azithromycin [From Zithromax] Allergy Itching Verified 06/10/20 09:21 iv dye Allergy Unknown Uncoded 06/10/20 09:21 ED Review of Systems ROS: Stated complaint: RT KNEE PAIN/SWELLING Other details as noted in HPI Constitutional: weakness. denies: chills, fever Eyes: denies: eye pain, eye discharge, vision change ENT: denies: ear pain, throat pain Respiratory: denies: cough, shortness of breath, wheezing Cardiovascular: denies: chest pain, palpitations Endocrine: no symptoms reported Gastrointestinal: denies: abdominal pain, nausea, diarrhea Genitourinary: denies: urgency, dysuria, discharge Musculoskeletal: denies: back pain, joint swelling, arthralgia Skin: denies: rash, lesions Neurological: as per HPI, weakness. denies: headache, paresthesias Psychiatric: denies: anxiety, depression Hematological/Lymphatic: denies: easy bleeding, easy bruising ED Past Medical Hx - Past Medical History Previous Medical History?: Yes Hx Hypertension: Yes Hx Heart Attack/AMI: Yes Hx Congestive Heart Failure: No Hx Deep Vein Thrombosis: No Hx Pulmonary Embolism: No Hx Arthritis: Yes Hx Asthma: No Hx COPD: Yes Hx Tuberculosis: No Hx HIV: No Additional medical history: angina, gout. cad - Surgical History Hx Coronary Stent: Yes Hx Open Heart Surgery: Yes Hx Pacemaker: No Hx Internal Defibrillator: No Hx Cholecystectomy: Yes Hx Appendectomy: No Hx Breast Surgery: No Additional Surgical History: hysterectomy. CABG. - Family History Family history: no significant - Social History Smoking Status: Former Smoker Substance Use Type: None - Medications Home Medications: Home Medications Medication Instructions Recorded Confirmed Last Taken Type Aspirin [Aspirin BABY CHEW TAB] 81 mg PO DAILY #100 tab.chew 04/28/18 04/27/20 Unknown Rx Benzonatate [Tessalon Perles] 100 mg PO Q8HR 08/04/18 04/27/20 Unknown History HYDROcodone/APAP 5-325 [[place] 1 each PO Q8HR PRN #10 tablet 04/18/20 04/27/20 Unknown Rx 5/325] Nitrofurantoin [place]/M-Cryst 100 mg PO Q12HR 7 Days #14 capsule 04/26/20 Unknown Rx [Macrobid CAP] Albuterol Mdi (or & Nicu Only) 2 puff IH TID PRN #1 04/29/20 Unknown Rx [ProAir HFA Inhaler] Apixaban [Eliquis] 5 mg PO Q12HR #60 tablet 04/29/20 Unknown Rx Arformoterol Nebu [Brovana Nebu] 15 mcg IH BIDRT #60 ml 04/29/20 Unknown Rx AtorvaSTATin [Lipitor] 20 mg PO QHS #30 tablet 04/29/20 Unknown Rx Budesonide [Pulmicort Respules] 0.5 mg IH BIDRT #60 nebu 04/29/20 Unknown Rx Cefuroxime Axetil [Ceftin] 500 mg PO Q12H #16 04/29/20 Unknown Rx Fluticasone/Salmeterol [Advair 1 puff IH BID #1 disk.w.dev 04/29/20 Unknown Rx Diskus 250-50 mcg] Oxybutynin [Ditropan] 5 mg PO TID #90 tablet 04/29/20 Unknown Rx Pantoprazole [Protonix TAB] 20 mg PO QDAY #30 tablet.dr 04/29/20 Unknown Rx Ranolazine ER [Ranexa ER] 1,000 mg PO BID #60 tablet 04/29/20 Unknown Rx Tolterodine (Nf) [Detrol LA] 4 mg PO QDAY #30 cap 04/29/20 Unknown Rx allopurinoL [Zyloprim] 200 mg PO QDAY #30 tablet 04/29/20 Unknown Rx carvediloL [Coreg] 3.125 mg PO Q12H #60 tablet 04/29/20 Unknown Rx ED Physical Exam - General Limitations: No Limitations ED Course Vital Signs 08/01/20 08/01/20 08/01/20 13:19 17:45 18:01 Temperature 97.9 F Pulse Rate 103 H 88 89 Respiratory 20 16 14 Rate Blood Pressure 86/42 112/54 98/59 O2 Sat by Pulse 98 96 96 Oximetry 08/01/20 08/01/20 08/01/20 18:15 18:31 18:45 Temperature Pulse Rate 89 86 99 H Respiratory 15 14 18 Rate Blood Pressure 98/59 98/59 98/59 O2 Sat by Pulse 97 98 Oximetry 08/01/20 08/01/20 08/01/20 19:01 19:15 19:31 Temperature Pulse Rate 93 H 89 88 Respiratory 16 15 18 Rate Blood Pressure 121/54 121/54 121/54 O2 Sat by Pulse 93 95 97 Oximetry 08/01/20 20:01 Temperature Pulse Rate 92 H Respiratory 15 Rate Blood Pressure 124/43 O2 Sat by Pulse 99 Oximetry - Reevaluation(s) Reevaluation #1: Patient's initial blood pressure is low. Patient will be started on a sepsis protocol. Patient will be given fluids and placed on a cardiac specialist. 08/01/20 16:51 Reevaluation #2: Patient's blood pressure has improved. Patient receiving fluids. 08/01/20 18:07 Reevaluation #3: I discussed all results with patient. I discussed plan of care with patient. Patient agrees with plan of care and admission. Patient to be admitted to the hospitalist service. 08/01/20 18:47 - Consultations Consultation #1: Hospitalist consulted for admission. Hospitalist to admit patient. 08/01/20 18:47 ED Medical Decision Making - Lab Data Result diagrams: 08/01/20 15:19 08/01/20 15:19 - EKG Data -: EKG Interpreted by Me EKG shows normal: sinus rhythm, axis, intervals, QRS complexes, ST-T waves Rate: normal - Radiology Data Radiology results: report reviewed, image reviewed interpreted by me: Chest x-ray: No pneumonia, no pneumothorax, no foreign body, no osseous findin gs, no acute findings Right foot 3 views INDICATION: Right foot pain. IMPRESSION: Moderate to severe degenerative changes involving the great toe MTP joint. There is nonspecific edema along the dorsal aspect of the forefoot. No discrete fracture or subluxation is identified. XR knee 4+V RT INDICATION / CLINICAL INFORMATION: Pain and swelling with bruising. COMPARISON: None available. FINDINGS: BONES/JOINT(S): No acute fracture or subluxation. Moderate tricompartmental DJD. No significant joint effusion. SOFT TISSUES: No significant abnormality. ADDITIONAL FINDINGS: None. CT head/brain wo con INDICATION / CLINICAL INFORMATION: 84 years Female; weakness. falls. TECHNIQUE: Routine CT head without contrast. All CT scans at this location are performed using CT dose reduction for ALARA by means of automated exposure control. COMPARISON: 06/10/2020 FINDINGS: BRAIN / INTRACRANIAL CONTENTS: No acute hemorrhage, mass effect, midline shift, hydrocephalus, or acute, large territorial infarct. Mild to moderate, diffuse cerebral and mild cerebellar atrophy. Moderate degree of hippocampal atrophy suggested bilaterally. There are moderate, somewhat confluent areas of decreased attenuation in the white matter of the cerebral hemispheres. These are nonspecific findings and may be related to microangiopathy (hypertension, diabetes, atherosclerosis), given the patient's age. It might be difficult to evaluate for small areas of ischemia without diffusion imaging by MRI. CRANIOCERVICAL JUNCTION: No significant abnormality. ORBITS: No significant abnormality of visualized orbits. SINUSES / MASTOIDS: Visualized paranasal sinuses and mastoid air cells are essentially clear. ADDITIONAL FINDINGS: Atherosclerotic disease is seen in the anterior and posterior circulation. IMPRESSION: 1. No focal mass, hemorrhage, hydrocephalus, or acute, large territorial infarct. CHEST 1 VIEW 08/01/2020 4:09 PM INDICATION / CLINICAL INFORMATION: weakness. COMPARISON: 04/26/2020 FINDINGS: SUPPORT DEVICES: None. HEART / MEDIASTINUM: No significant abnormality. LUNGS / PLEURA: Stable chronic interstitial lung disease without acute abnormality. No pneumothorax. ADDITIONAL FINDINGS: No significant additional findings. IMPRESSION: 1. No acute findings. DUPLEX DOPPLER LOWER EXTREMITY VEINS, RIGHT INDICATION / CLINICAL INFORMATION: pain swelling. TECHNIQUE: Duplex doppler imaging was performed through the veins of the right lower extremity using venous compression and other maneuvers. COMPARISON: None available. FINDINGS: RIGHT COMMON FEMORAL VEIN: Negative. RIGHT FEMORAL VEIN: Negative. RIGHT POPLITEAL VEIN: Negative. RIGHT CALF VEINS: Negative. ADDITIONAL FINDINGS: None. IMPRESSION: 1. No sonographic evidence for DVT in the right lower extremity. - Medical Decision Making Patient is an 84-year-old female that presents emergency room with complaints of weakness and knee pain. Patient found to have tenderness over the right knee and lower extremity as well as calf tenderness on the right lower extremity. Patient also found to be hypotensive. Patient given fluids and her blood pressure improved. Patient had finished evaluation started on sepsis protocol given early antibiotics and fluids. Patient's blood pressure improved. Patient had labs done which were essentially unremarkable except for a lactic acidosis and anemia and UTI. Patient had an x-ray of the right lower extremity was negative for acute findings and fracture. Patient had an ultrasound of the right lower extremity was negative for DVT. Patient had a head CT due to her complaints of weakness it was negative for acute findings. Patient had a chest x-ray for complaint of weakness and hypotension and it was negative for acute findings. Patient admitted to the hospital service for further evaluation and treatment. Critical care time documented due to the multiple reassessments, prolonged time at the bedside, interpretation of diagnostics and labs. - Differential Diagnosis Weakness, fall, UTI, sepsis, Critical Care Time: Yes Critical care time in (mins) excluding proc time.: 35 Critical care attestation.: If time is entered above; I have spent that time in minutes in the direct care of this critically ill patient, excluding procedure time. Critical Care Time: 35 minutes ED Disposition Clinical Impression: Weakness, Right leg pain, Right leg swelling, Lactic acidosis Right knee pain Qualifiers: Chronicity: acute Qualified Code(s): M25.561 - Pain in right knee Hypotension Qualifiers: Hypotension type: unspecified hypotension type Qualified Code(s): I95.9 - Hypotension, unspecified Sepsis Qualifiers: Sepsis type: sepsis due to unspecified organism Sepsis acute organ dysfunction status: without acute organ dysfunction Qualified Code(s): A41.9 - Sepsis, unspecified organism UTI (urinary tract infection) Qualifiers: Urinary tract infection type: acute cystitis Hematuria presence: with hematuria Qualified Code(s): N30.01 - Acute cystitis with hematuria Anemia Qualifiers: Anemia type: unspecified type Qualified Code(s): D64.9 - Anemia, unspecified Disposition: DC-09 OP ADMIT IP TO THIS HOSP Is pt being admited?: Yes Does the pt Need Aspirin: No Condition: Critical Time of Disposition: 19:01
[2020-08-01 16:52] LABS: Alanine Aminotransferase 12 units/L (7-56); Albumin 2.2 g/dL (3.9-5); BUN/Creatinine Ratio 19; Blood Urea Nitrogen 15 mg/dL (7-17); Calcium 8.7 mg/dL (8.4-10.2); Hemolysis Index 2
--- NOTE | 2020-08-01 17:19 | XRay Report ---
CHEST 1 VIEW 08/01/2020 4:09 PM INDICATION / CLINICAL INFORMATION: weakness. COMPARISON: 04/26/2020 FINDINGS: SUPPORT DEVICES: None. HEART / MEDIASTINUM: No significant abnormality. LUNGS / PLEURA: Stable chronic interstitial lung disease without acute abnormality. No pneumothorax. ADDITIONAL FINDINGS: No significant additional findings. IMPRESSION: 1. No acute findings. Signer Name: Kane Mcbride MD Signed: 08/01/2020 5:14 PM Workstation Name: [id number]
--- NOTE | 2020-08-01 17:37 | Cat Scan Report ---
CT head/brain wo con INDICATION / CLINICAL INFORMATION: 84 years Female; weakness. falls. TECHNIQUE: Routine CT head without contrast. All CT scans at this location are performed using CT dos e reduction for ALARA by means of automated exposure control. COMPARISON: 06/10/2020 FINDINGS: BRAIN / INTRACRANIAL CONTENTS: No acute hemorrhage, mass effect, midline shift, hydrocephalus, or acu te, large territorial infarct. Mild to moderate, diffuse cerebral and mild cerebellar atrophy. Moderate degree of hippocampal atroph y suggested bilaterally. There are moderate, somewhat confluent areas of decreased attenuation in the white matter of the cere bral hemispheres. These are nonspecific findings and may be related to microangiopathy (hypertension, diabetes, atherosclerosis), given the patient's age. It might be difficult to evaluate for small are as of ischemia without diffusion imaging by MRI. CRANIOCERVICAL JUNCTION: No significant abnormality. ORBITS: No significant abnormality of visualized orbits. SINUSES / MASTOIDS: Visualized paranasal sinuses and mastoid air cells are essentially clear. ADDITIONAL FINDINGS: Atherosclerotic disease is seen in the anterior and posterior circulation. IMPRESSION: 1. No focal mass, hemorrhage, hydrocephalus, or acute, large territorial infarct. Signer Name: Victor M Velasco MD, III Signed: 08/01/2020 5:33 PM Workstation Name: [id number]
[2020-08-01] MEDS ORDERED: ONDANSETRON 4 MG/2 ML INJ IV PRN (18:50)
--- NOTE | 2020-08-01 18:50 | History and Physical Report ---
History of Present Illness Chief complaint: She is weak and has been falling History of present illness: 84 YO Female with HTN, GERD, HLD, COPD, Atrial Fib on therapeutic anticoagulation with Eliquis, Pulmonary HTN, CAD S/P CABG, OA, Vascular Dementia, Cerebral Atherosclerosis presents to ED for evaluation. Patient has diminished cognition and is unable to provide detailed history. Patient granddaughter is at bedside during exam and interview and provide detailed history. The granddaughter reports "she has been following and has gotten weak". Patient currently reports increased generalized weakness resulting in multiple falls over the past 1 week with worsening symptoms over the past 4 days. Patient lost her balance and fell to the floor from a standing position today and landed on her right knee. Patient transported to [facility] via private vehicle for further care and evaluation of the aforementioned symptoms. The patient was seen and evaluated in the emergency department. All lab and imaging studies reviewed. The patient was found to to be hypotensive with a systolic blood pressure in the 80s. The patient was found to have systemic inflammatory response syndrome suspected secondary to urinary tract infection, metabolic encephalopathy, volume depletion, malnutrition. Patient placed in observation status and admitted to medical floor and initiated on IV antibiotic therapy. No reports of fever, chills, chest pain, palpitation, productive cough, skin rash, recent ill contacts, or known exposure to COVID-19. Prior admission on 04/26/2020 reviewed. All medication listed at time of admission has been reconciled. Advanced care planning conducted in the emergency department. Past History Past Medical History: atrial fib, GERD, hypertension, hyperlipidemia, other (See HPI) Past Surgical History: cholecystectomy, CABG, hysterectomy Social history: . denies: smoking, alcohol abuse, prescription drug abuse Family history: diabetes, hypertension Medications and Allergies Allergies Allergy/AdvReac Type Severity Reaction Status Date / Time Penicillins Allergy Severe EVRYTHING Verified 06/10/20 09:21 SWELLS Sulfa (Sulfonamide Allergy Mild Itching Verified 06/10/20 09:21 Antibiotics) azithromycin [From Zithromax] Allergy Itching Verified 06/10/20 09:21 iv dye Allergy Unknown Uncoded 06/10/20 09:21 Home Medications Medication Instructions Recorded Confirmed Last Taken Type Aspirin [Aspirin BABY CHEW TAB] 81 mg PO DAILY #100 tab.chew 04/28/18 04/27/20 Unknown Rx Benzonatate [Tessalon Perles] 100 mg PO Q8HR 08/04/18 04/27/20 Unknown History HYDROcodone/APAP 5-325 [[place] 1 each PO Q8HR PRN #10 tablet 04/18/20 04/27/20 Unknown Rx 5/325] Nitrofurantoin [place]/M-Cryst 100 mg PO Q12HR 7 Days #14 capsule 04/26/20 Unknown Rx [Macrobid CAP] Albuterol Mdi (or & Nicu Only) 2 puff IH TID PRN #1 04/29/20 Unknown Rx [ProAir HFA Inhaler] Apixaban [Eliquis] 5 mg PO Q12HR #60 tablet 04/29/20 Unknown Rx Arformoterol Nebu [Brovana Nebu] 15 mcg IH BIDRT #60 ml 04/29/20 Unknown Rx AtorvaSTATin [Lipitor] 20 mg PO QHS #30 tablet 04/29/20 Unknown Rx Budesonide [Pulmicort Respules] 0.5 mg IH BIDRT #60 nebu 04/29/20 Unknown Rx Cefuroxime Axetil [Ceftin] 500 mg PO Q12H #16 04/29/20 Unknown Rx Fluticasone/Salmeterol [Advair 1 puff IH BID #1 disk.w.dev 04/29/20 Unknown Rx Diskus 250-50 mcg] Oxybutynin [Ditropan] 5 mg PO TID #90 tablet 04/29/20 Unknown Rx Pantoprazole [Protonix TAB] 20 mg PO QDAY #30 tablet. 04/29/20 Unknown Rx Ranolazine ER [Ranexa ER] 1,000 mg PO BID #60 tablet 04/29/20 Unknown Rx Tolterodine (Nf) [Detrol LA] 4 mg PO QDAY #30 cap 04/29/20 Unknown Rx allopurinoL [Zyloprim] 200 mg PO QDAY #30 tablet 04/29/20 Unknown Rx carvediloL [Coreg] 3.125 mg PO Q12H #60 tablet 04/29/20 Unknown Rx Review of Systems ROS unobtainable: due to mental status Exam - Constitutional Vitals: Temp Pulse Resp BP Pulse Ox 97.9 F 88 16 112/54 96 08/01/20 13:19 08/01/20 17:45 08/01/20 17:45 08/01/20 17:45 08/01/20 17:45 General appearance: Present: mild distress - EENT Eyes: Present: PERRL ENT: hearing decreased, other (Dry oral mucosa) - Respiratory Respiratory effort: normal Respiratory: bilateral: CTA - Cardiovascular Heart Sounds: Present: S1 & S2. Absent: rub, click - Extremities Extremities: pulses symmetrical, No edema Peripheral Pulses: within normal limits - Abdominal General gastrointestinal: Present: soft, non-tender, non-distended, normal bowel sounds Female genitourinary: Present: normal - Integumentary Integumentary: Present: dry, clammy, decreased turgor - Musculoskeletal Musculoskeletal: generalized weakness - Psychiatric Psychiatric: no appropriate mood/affect, no intact judgment & insight, no memory intact - Neurologic Neurologic: CNII-XII intact, no focal deficits, moves all extremities, no gait normal HEART Score - HEART Score Troponin: Troponin T < 0.010 ng/mL (0.00-0.029) 08/01/20 15:19 Results - Labs CBC & Chem 7: 08/01/20 15:19 08/01/20 15:19 Labs: Abnormal lab results 08/01/20 08/01/20 08/01/20 Range/Units 15:19 15:19 17:22 RBC 2.60 L (3.65-5.03) M/mm3 Hgb 7.7 L (10.1-14.3) gm/dl Hct 23.7 L (30.3-42.9) % RDW 21.2 H (13.2-15.2) % Glucose 122 H (65-100) mg/dL Lactic Acid 2.10 H* (0.7-2.0) mmol/L Alkaline Phosphatase 205 H (35-129) units/L Albumin 2.2 L (3.9-5) g/dL Assessment and Plan - Patient Problems (1) Systemic inflammatory response syndrome Current Visit: Yes Status: Acute Plan to address problem: CBC, CMP, chest x-ray, urinalysis, IV antibiotic therapy, IV fluid resuscitation therapy, (2) Metabolic encephalopathy Current Visit: Yes Status: Acute Plan to address problem: CT head, neuro check, seizure precautions, aspiration precautions, fall precautions, supportive care (3) Volume depletion Current Visit: Yes Status: Acute Plan to address problem: IV fluid resuscitation therapy, monitor urine output every shift. (4) UTI (urinary tract infection) Current Visit: Yes Status: Acute Qualifiers: Encounter type: initial encounter Plan to address problem: Urinalysis pending at time of admission. IV antibiotic therapy, IV fluid resuscitation therapy. (5) Malnutrition Current Visit: Yes Status: Acute Qualifiers: Protein-calorie malnutrition severity: moderate Plan to address problem: Dietary supplementation, increase protein intake. (6) Atrial fibrillation Current Visit: Yes Status: Acute Qualifiers: Atrial fibrillation type: longstanding persistent Qualified Code(s): I48.11 - Longstanding persistent atrial fibrillation Plan to address problem: Continue therapeutic anticoagulation with Eliquis, continue rate control, supportive care. (7) DVT prophylaxis Current Visit: Yes Status: Acute Plan to address problem: SCD to bilateral lower extremities while in bed, continue therapeutic anticoagulation (8) Advance care planning Current Visit: Yes Status: Acute Plan to address problem: Disease education conducted, care plan discussed, diagnoses discussed, prognosis discussed, patient granddaughter knowledges understanding and agreement with care plan, patient is full code, +30 minutes.
[2020-08-01] MEDS ORDERED: carvediloL 3.125 MG TAB PO SCH (19:00)
[2020-08-01] MEDS ORDERED: HYDROcodone/ACETAMINOPHEN 5-325 MG TAB PO PRN (19:04)
--- NOTE | 2020-08-01 19:43 | Vascular Lab Report ---
DUPLEX DOPPLER LOWER EXTREMITY VEINS, RIGHT INDICATION / CLINICAL INFORMATION: pain swelling. TECHNIQUE: Duplex doppler imaging was performed through the veins of the right lower extremity using venous comp ression and other maneuvers. COMPARISON: None available. FINDINGS: RIGHT COMMON FEMORAL VEIN: Negative. RIGHT FEMORAL VEIN: Negative. RIGHT POPLITEAL VEIN: Negative. RIGHT CALF VEINS: Negative. ADDITIONAL FINDINGS: None. IMPRESSION: 1. No sonographic evidence for DVT in the right lower extremity. Signer Name: Eugene Ledbetter MD Signed: 08/01/2020 7:39 PM Workstation Name: [id number]
[2020-08-01] MEDS: ARFORMOTEROL 15 MCG/2 ML NEBU IH SCH (20:38)
[2020-08-01] MEDS: BUDESONIDE 0.5 MG/2 ML NEBU IH SCH (20:38)
[2020-08-01 20:55] LABS: Bacteria,Urine 1+ /HPF (Negative); Bilirubin,Urine NEG (Negative); Blood,Urine SM (Negative); Color,Urine Amber (Yellow)
[2020-08-01 20:56] LABS: WBC,Urine > 182.0 /HPF (0.0-6.0)
[2020-08-01] MEDS ORDERED: NON-FORMULARY EACH (Apixaban 5 MG Tablet) PO SCH (22:00)
[2020-08-01] MEDS ORDERED: NON-FORMULARY EACH (Fluticasone/Salmeterol [Advair Diskus 250-50 Mcg] 1 EACH Disk.W.Dev) IH SCH (22:00)
[2020-08-01] MEDS: OXYBUTYNIN 5 MG TAB PO SCH (22:12)
[2020-08-01] MEDS: BENZONATATE 100 MG CAP PO SCH (22:13)
[2020-08-01] MEDS: carvediloL 3.125 MG TAB PO SCH (22:13)
[2020-08-01] MEDS: APIXABAN 5 MG TAB PO SCH (22:13)
[2020-08-02] MEDS: BENZONATATE 100 MG CAP PO SCH ×3 (05:29→22:03)
[2020-08-02] MEDS: SODIUM CHLORIDE 0.9% 1000 ML 1,000 ML IV SCH (05:30)
[2020-08-02] MEDS: ARFORMOTEROL 15 MCG/2 ML NEBU IH SCH ×2 (08:14→20:14)
[2020-08-02] MEDS: BUDESONIDE 0.5 MG/2 ML NEBU IH SCH ×2 (08:14→20:15)
[2020-08-02 08:31] LABS: Basophils % (Auto) 0.5 % (0.0-1.8); Eosinophils # (Auto) 0.2 K/mm3 (0.0-0.4); Eosinophils % (Auto) 6.1 % (0.0-4.3); Hematocrit 22.8 % (30.3-42.9); Hemoglobin 7.3 gm/dl (10.1-14.3); Lymphocytes # (Auto) 1.7 K/mm3 (1.2-5.4); Lymphocytes % (Auto) 44.1 % (13.4-35.0); Mean Corpuscular HGB Conc 32 % (30-34); Mean Corpuscular Volume 90 fl (79-97); Monocytes # (Auto) 0.3 K/mm3 (0.0-0.8); Monocytes % (Auto) 8.8 % (0.0-7.3); Platelet Count 175 K/mm3 (140-440); Red Blood Count 2.52 M/mm3 (3.65-5.03)
[2020-08-02 08:33] LABS: Red Cell Distribution Width 21.9 % (13.2-15.2)
--- NOTE | 2020-08-02 08:45 | Progress Note ---
Assessment and Plan Assessment and plan: --Acute metabolic encephalopathy; Current Visit: Yes Status: Acute Multifactorial, advanced age dementia, dehydration, A. fib UTI. Monitor Accu-Cheks, treat the underlying cause CT head, no acute abnormality --History of recurrent falls; right knee pain Current Visit: Yes Status: Acute Fall precautions, PT OT Tests done so far; Venous Doppler right lower extremity; negative DVT x-ray right foot; no fracture subluxation edema severe degenerative changes involving MT P joint X-ray right knee; no fracture no subluxation CT head without contrast no focal mass hemorrhage hydrocephalus or no acute acute no acute infarct infarct -- Systemic inflammatory response syndrome Current Visit: Yes Status: Acute Cultures, empiric antibiotics, supportive care --Volume depletion/dehydration Current Visit: Yes Status: Acute IV fluid resuscitation therapy, monitor urine output every shift. --UTI (urinary tract infection) Current Visit: Yes Status: Acute Urinalysis pending at time of admission. Empiric IV antibiotic therapy, IV fluid resuscitation therapy. --Severe protein calorie malnutrition Current Visit: Yes Status: Acute Hypoalbuminemia , albumin 2.2 dietary supplementation, Supportive care, nutrition consult --Atrial fibrillation rate controlled Current Visit: Yes Status: Acute Continue therapeutic anticoagulation with Eliquis, continue rate control, supportive care. --DVT prophylaxis Current Visit: Yes Status: Acute. Continue Eliquis, SCD --Advance care planning/full code Current Visit: Yes Status: Acute Plan of care reviewed with the patient and her nurse DC planning per case management Closely monitor the patient and adjust management as needed History Interval history: I have seen and examined the patient at the bedside Patient slightly better, intermittent confusion Vital signs noted Hospitalist Physical - Constitutional Vitals: Temp Pulse Resp BP Pulse Ox 98.1 F 86 20 106/49 100 08/02/20 05:29 08/02/20 05:29 08/02/20 05:29 08/02/20 05:29 08/02/20 05:29 General appearance: Present: mild distress, well-nourished, other (Confused) - EENT Eyes: Present: PERRL, EOM intact - Neck Neck: Present: supple, normal ROM - Respiratory Respiratory effort: normal Respiratory: bilateral: diminished, negative: rales, rhonchi, wheezing - Cardiovascular Rhythm: regular Heart Sounds: Present: S1 & S2 - Extremities Extremities: no ischemia, No edema - Abdominal General gastrointestinal: soft, non-tender, non-distended, normal bowel sounds - Integumentary Integumentary: Present: clear, warm - Psychiatric Psychiatric: other (Minimally communicative) - Neurologic Neurologic: moves all extremities, other (Minimally communicative) HEART Score - HEART Score Troponin: Troponin T < 0.010 ng/mL (0.00-0.029) 08/01/20 15:19 Results - Labs CBC & Chem 7: 08/02/20 08:11 08/02/20 08:11 Labs: Laboratory Last Values WBC 3.9 K/mm3 (4.5-11.0) L 08/02/20 08:11 RBC 2.52 M/mm3 (3.65-5.03) L 08/02/20 08:11 Hgb 7.3 gm/dl (10.1-14.3) L 08/02/20 08:11 Hct 22.8 % (30.3-42.9) L 08/02/20 08:11 MCV 90 fl (79-97) 08/02/20 08:11 MCH 29 pg (28-32) 08/02/20 08:11 MCHC 32 % (30-34) 08/02/20 08:11 RDW 21.9 % (13.2-15.2) H 08/02/20 08:11 Plt Count 175 K/mm3 (140-440) 08/02/20 08:11 Lymph % (Auto) 44.1 % (13.4-35.0) H 08/02/20 08:11 [place] % (Auto) 8.8 % (0.0-7.3) H 08/02/20 08:11 Eos % (Auto) 6.1 % (0.0-4.3) H 08/02/20 08:11 Baso % (Auto) 0.5 % (0.0-1.8) 08/02/20 08:11 Lymph # (Auto) 1.7 K/mm3 (1.2-5.4) 08/02/20 08:11 [place] # (Auto) 0.3 K/mm3 (0.0-0.8) 08/02/20 08:11 Eos # (Auto) 0.2 K/mm3 (0.0-0.4) 08/02/20 08:11 Baso # (Auto) 0.0 K/mm3 (0.0-0.1) 08/02/20 08:11 Seg Neutrophils % 40.5 % (40.0-70.0) 08/02/20 08:11 Seg Neutrophils # 1.6 K/mm3 (1.8-7.7) L 08/02/20 08:11 Sodium 137 mmol/L (137-145) 08/01/20 15:19 Potassium 4.0 mmol/L (3.6-5.0) 08/01/20 15:19 Chloride 106.3 mmol/L (98-107) 08/01/20 15:19 Carbon Dioxide 22 mmol/L (22-30) 08/01/20 15:19 Anion Gap 13 mmol/L 08/01/20 15:19 BUN 15 mg/dL (7-17) 08/01/20 15:19 Creatinine 0.8 mg/dL (0.6-1.2) 08/01/20 15:19 Estimated GFR > 60 ml/min 08/01/20 15:19 BUN/Creatinine Ratio 19 % 08/01/20 15:19 Glucose 122 mg/dL (65-100) H 08/01/20 15:19 Lactic Acid 1.80 mmol/L (0.7-2.0) 08/01/20 19:55 Calcium 8.7 mg/dL (8.4-10.2) 08/01/20 15:19 Total Bilirubin 0.70 mg/dL (0.1-1.2) 08/01/20 15:19 AST 31 units/L (5-40) 08/01/20 15:19 ALT 12 units/L (7-56) 08/01/20 15:19 Alkaline Phosphatase 205 units/L (35-129) H 08/01/20 15:19 Troponin T < 0.010 ng/mL (0.00-0.029) 08/01/20 15:19 Total Protein 7.4 g/dL (6.3-8.2) 08/01/20 15:19 Albumin 2.2 g/dL (3.9-5) L 08/01/20 15:19 Albumin/Globulin Ratio 0.4 % 08/01/20 15:19 Urine Color Judi (Yellow) 08/01/20 19:54 Urine Turbidity Cloudy (Clear) 08/01/20 19:54 Urine pH 5.0 (5.0-7.0) 08/01/20 19:54 Ur Specific [place] 1.018 (1.003-1.030) 08/01/20 19:54 Urine Protein 30 mg/dl mg/dL (Negative) 08/01/20 19:54 Urine Glucose (UA) Neg mg/dL (Negative) 08/01/20 19:54 Urine Ketones Neg mg/dL (Negative) 08/01/20 19:54 Urine Blood Sm (Negative) 08/01/20 19:54 Urine Nitrite Pos (Negative) 08/01/20 19:54 Urine Bilirubin Neg (Negative) 08/01/20 19:54 Urine Urobilinogen 4.0 mg/dL (<2.0) 08/01/20 19:54 Ur Leukocyte Esterase Tr (Negative) 08/01/20 19:54 Urine WBC (Auto) > 182.0 /HPF (0.0-6.0) H 08/01/20 19:54 Urine RBC (Auto) 30.0 /HPF (0.0-6.0) 08/01/20 19:54 Urine Bacteria (Auto) 1+ /HPF (Negative) 08/01/20 19:54 Urine WBC Clumps 2+ /HPF 08/01/20 19:54 Urine Yeast (Budding) 2+ /HPF 08/01/20 19:54 Blood Type B POSITIVE 08/01/20 17:30 Antibody Screen Negative 08/01/20 17:30 Microbiology: Microbiology 08/01/20 17:22 Peripheral/Venous Blood Culture - Preliminary Culture in Progress 08/01/20 17:22 Peripheral/Venous Blood Culture - Preliminary Culture in Progress Zendejas/IV: Voiding Method Incontinent Active Medications - Current Medications Current Medications: Generic Name Dose Route Start Last Admin Trade Name Freq PRN Reason Stop Dose Admin Acetaminophen 650 mg 08/01/20 18:50 Acetaminophen 325 Mg Tab PO Q4H PRN Pain MILD(1-3)/Fever >100.5/BENNETT Hydrocodone Bitart/Acetaminophen 1 each 08/01/20 19:04 Hydrocodone/Acetaminophen 5-325 Mg Tab PO Q4H PRN Pain, Moderate (4-6) Allopurinol 200 mg 08/02/20 10:00 Allopurinol 100 Mg Tab PO QDAY CHARBEL Apixaban 5 mg 08/01/20 22:00 08/01/20 22:13 Apixaban 5 Mg Tab PO 5 mg Q12HR CHARBEL Administration Arformoterol Tartrate 15 mcg 08/01/20 20:00 08/02/20 08:14 Arformoterol 15 Mcg/2 Ml Nebu IH 15 mcg Q12HRT CHARBEL Administration Aspirin 81 mg 08/02/20 10:00 Aspirin 81 Mg Tab Chew PO DAILY CHARBEL Atorvastatin Calcium 20 mg 08/01/20 22:00 08/01/20 22:12 Atorvastatin 20 Mg Tab PO 20 mg QHS CHARBEL Administration Benzonatate 100 mg 08/01/20 22:00 08/02/20 05:29 Benzonatate 100 Mg Cap PO 100 mg Q8HR CHARBEL Administration Budesonide 0.5 mg 08/01/20 20:00 08/02/20 08:14 Budesonide 0.5 Mg/2 Ml Nebu IH 0.5 mg Q12HRT CHARBEL Administration Carvedilol 3.125 mg 08/01/20 22:00 08/01/20 22:13 Carvedilol 3.125 Mg Tab PO 3.125 mg Q12HR CHARBEL Administration Sodium Chloride 1,000 mls @ 42 mls/hr 08/01/20 19:00 08/02/20 05:30 Nacl 0.9% 1000 Ml IV 42 mls/hr DIRECT CHARBEL Administration Ondansetron HCl 4 mg 08/01/20 18:50 Ondansetron 4 Mg/2 Ml Inj IV Q8H PRN Nausea And Vomiting Oxybutynin Chloride 5 mg 08/01/20 20:00 08/01/20 22:12 Oxybutynin 5 Mg Tab PO Not Given TID CHARBEL Pantoprazole Sodium 20 mg 08/02/20 10:00 Pantoprazole 20 Mg Tab PO QDAY CHARBEL Ranolazine 1,000 mg 08/01/20 22:00 08/02/20 00:00 Ranolazine Er 500 Mg Tab 12hr PO 1,000 mg BID CHARBEL Administration Sodium Chloride 10 ml 08/01/20 22:00 08/01/20 22:13 Sodium Chloride 0.9% 10 Ml Flush Syringe IV 10 ml BID CHARBEL Administration Sodium Chloride 10 ml 08/01/20 18:50 Sodium Chloride 0.9% 10 Ml Flush Syringe IV PRN PRN LINE FLUSH
[2020-08-02 08:55] LABS: Blood Urea Nitrogen 14 mg/dL (7-17); Calcium 8.4 mg/dL (8.4-10.2); Hemolysis Index 37
[2020-08-02] MEDS: APIXABAN 5 MG TAB PO SCH ×2 (09:01→21:22)
[2020-08-02] MEDS: ASPIRIN 81 MG TAB CHEW PO SCH (09:01)
[2020-08-02] MEDS: allopurinoL 100 MG TAB PO SCH (09:01)
[2020-08-02] MEDS: OXYBUTYNIN 5 MG TAB PO SCH ×3 (09:01→22:02)
[2020-08-02] MEDS: PANTOPRAZOLE 20 MG TAB PO SCH (09:01)
[2020-08-02] MEDS: carvediloL 3.125 MG TAB PO SCH ×2 (09:02→21:22)
[2020-08-02 09:06] LABS: BUN/Creatinine Ratio 23
[2020-08-02] MEDS ORDERED: TOLTERODINE 4 MG PO SCH (10:00)
--- NOTE | 2020-08-02 14:16 | Electrocardiograph Report ---
[facility] Test Date: 2020-08-01 Test Time: 15:02:33 Pat Name: RUDOLPH LEE Department: Room: A371 1 Gender: F Location Man: STACY : 1935 Requested By: DWAIN LAZO Order Number: [id number] Reading MD: Radha Yo Measurements Intervals [place] Rate: 97 P: 55 CO: 162 QRS: -10 QRSD: 82 T: 267 QT: 374 QTc: 475 Interpretive Statements Sinus rhythm ST depression, consider anterior ischemia Compared to ECG 06/10/2020 09:46:07 No significant change Electronically Signed On 08-02-2020 14:16:12 EDT by Radha Yo
[2020-08-02] MEDS: RANOLAZINE ER 500 MG TAB 12HR PO SCH ×3 (19:42→22:02)
[2020-08-03] MEDS: BENZONATATE 100 MG CAP PO SCH ×3 (05:42→22:21)
[2020-08-03] MEDS: SODIUM CHLORIDE 0.9% 1000 ML 1,000 ML IV SCH (06:03)
[2020-08-03] MEDS: ARFORMOTEROL 15 MCG/2 ML NEBU IH SCH (08:29)
[2020-08-03] MEDS: BUDESONIDE 0.5 MG/2 ML NEBU IH SCH (08:29)
[2020-08-03] MEDS: ASPIRIN 81 MG TAB CHEW PO SCH (09:44)
[2020-08-03] MEDS: allopurinoL 100 MG TAB PO SCH (09:44)
[2020-08-03] MEDS: APIXABAN 5 MG TAB PO SCH ×2 (09:44→22:21)
[2020-08-03] MEDS: PANTOPRAZOLE 20 MG TAB PO SCH (09:45)
[2020-08-03] MEDS: OXYBUTYNIN 5 MG TAB PO SCH ×3 (09:45→22:21)
[2020-08-03] MEDS: RANOLAZINE ER 500 MG TAB 12HR PO SCH ×2 (09:45→22:21)
--- NOTE | 2020-08-03 10:07 | Progress Note ---
Assessment and Plan Assessment and plan: --Acute metabolic encephalopathy; Current Visit: Yes Status: Acute Multifactorial, advanced age dementia, dehydration, A. fib UTI. Monitor Accu-Cheks, treat the underlying cause CT head, no acute abnormality --History of recurrent falls; right knee pain Current Visit: Yes Status: Acute Fall precautions, PT OT Tests done so far; Venous Doppler right lower extremity; negative DVT x-ray right foot; no fracture subluxation edema severe degenerative changes involving MT P joint X-ray right knee; no fracture no subluxation CT head without contrast no focal mass hemorrhage hydrocephalus or no acute acute no acute infarct infarct -- Systemic inflammatory response syndrome Current Visit: Yes Status: Acute Cultures, empiric antibiotics, supportive care --Volume depletion/dehydration Current Visit: Yes Status: Acute IV fluid resuscitation therapy, monitor urine output every shift. --UTI (urinary tract infection) Current Visit: Yes Status: Acute Urinalysis pending at time of admission. Empiric IV antibiotic therapy, IV fluid resuscitation therapy. --Severe protein calorie malnutrition Current Visit: Yes Status: Acute Hypoalbuminemia , albumin 2.2 dietary supplementation, Supportive care, nutrition consult --Atrial fibrillation rate controlled Current Visit: Yes Status: Acute Continue therapeutic anticoagulation with Eliquis, continue rate control, supportive care. --DVT prophylaxis Current Visit: Yes Status: Acute. Continue Eliquis, SCD --Advance care planning/full code Current Visit: Yes Status: Acute Plan of care reviewed with the patient and her nurse DC planning per case management Closely monitor the patient and adjust management as needed 84-year-old elderly frail female patient admitted with acute metabolic encephalopathy and UTI, History of recurrent falls, follow PT OT Patient is receiving empiric antibiotics, fall precaution 08/03/2020 ; SNF placement when medically stable History Interval history: I have seen and examined the patient at the bedside Patient's chart and medications reviewed Patient is slightly better Still confused at times Vital signs noted Hospitalist Physical - Constitutional Vitals: Temp Pulse Resp BP Pulse Ox 98.1 F 88 18 124/62 100 08/03/20 05:31 08/03/20 05:31 08/03/20 05:31 08/03/20 05:31 08/03/20 05:31 General appearance: Present: mild distress, well-nourished - EENT Eyes: Present: PERRL, EOM intact - Neck Neck: Present: supple, normal ROM - Respiratory Respiratory effort: normal Respiratory: bilateral: diminished, negative: rales, rhonchi, wheezing - Cardiovascular Rhythm: regular Heart Sounds: Present: S1 & S2 - Extremities Extremities: no ischemia, No edema - Abdominal General gastrointestinal: soft, non-tender, non-distended, normal bowel sounds - Integumentary Integumentary: Present: clear, warm - Psychiatric Psychiatric: appropriate mood/affect, cooperative - Neurologic Neurologic: CNII-XII intact, moves all extremities HEART Score - HEART Score Troponin: Troponin T < 0.010 ng/mL (0.00-0.029) 08/01/20 15:19 Results - Labs CBC & Chem 7: 08/02/20 08:11 08/02/20 08:11 Labs: Laboratory Last Values WBC 3.9 K/mm3 (4.5-11.0) L 08/02/20 08:11 RBC 2.52 M/mm3 (3.65-5.03) L 08/02/20 08:11 Hgb 7.3 gm/dl (10.1-14.3) L 08/02/20 08:11 Hct 22.8 % (30.3-42.9) L 08/02/20 08:11 MCV 90 fl (79-97) 08/02/20 08:11 MCH 29 pg (28-32) 08/02/20 08:11 MCHC 32 % (30-34) 08/02/20 08:11 RDW 21.9 % (13.2-15.2) H 08/02/20 08:11 Plt Count 175 K/mm3 (140-440) 08/02/20 08:11 Lymph % (Auto) 44.1 % (13.4-35.0) H 08/02/20 08:11 [place] % (Auto) 8.8 % (0.0-7.3) H 08/02/20 08:11 Eos % (Auto) 6.1 % (0.0-4.3) H 08/02/20 08:11 Baso % (Auto) 0.5 % (0.0-1.8) 08/02/20 08:11 Lymph # (Auto) 1.7 K/mm3 (1.2-5.4) 08/02/20 08:11 [place] # (Auto) 0.3 K/mm3 (0.0-0.8) 08/02/20 08:11 Eos # (Auto) 0.2 K/mm3 (0.0-0.4) 08/02/20 08:11 Baso # (Auto) 0.0 K/mm3 (0.0-0.1) 08/02/20 08:11 Seg Neutrophils % 40.5 % (40.0-70.0) 08/02/20 08:11 Seg Neutrophils # 1.6 K/mm3 (1.8-7.7) L 08/02/20 08:11 Sodium 136 mmol/L (137-145) L 08/02/20 08:11 Potassium 4.5 mmol/L (3.6-5.0) 08/02/20 08:11 Chloride 108.1 mmol/L (98-107) H 08/02/20 08:11 Carbon Dioxide 23 mmol/L (22-30) 08/02/20 08:11 Anion Gap 9 mmol/L 08/02/20 08:11 BUN 14 mg/dL (7-17) 08/02/20 08:11 Creatinine 0.6 mg/dL (0.6-1.2) 08/02/20 08:11 Estimated GFR > 60 ml/min 08/02/20 08:11 BUN/Creatinine Ratio 23 % 08/02/20 08:11 Glucose 95 mg/dL (65-100) 08/02/20 08:11 Lactic Acid 1.80 mmol/L (0.7-2.0) 08/01/20 19:55 Calcium 8.4 mg/dL (8.4-10.2) 08/02/20 08:11 Total Bilirubin 0.70 mg/dL (0.1-1.2) 08/01/20 15:19 AST 31 units/L (5-40) 08/01/20 15:19 ALT 12 units/L (7-56) 08/01/20 15:19 Alkaline Phosphatase 205 units/L (35-129) H 08/01/20 15:19 Troponin T < 0.010 ng/mL (0.00-0.029) 08/01/20 15:19 Total Protein 7.4 g/dL (6.3-8.2) 08/01/20 15:19 Albumin 2.2 g/dL (3.9-5) L 08/01/20 15:19 Albumin/Globulin Ratio 0.4 % 08/01/20 15:19 Urine Color Judi (Yellow) 08/01/20 19:54 Urine Turbidity Cloudy (Clear) 08/01/20 19:54 Urine pH 5.0 (5.0-7.0) 08/01/20 19:54 Ur Specific [place] 1.018 (1.003-1.030) 08/01/20 19:54 Urine Protein 30 mg/dl mg/dL (Negative) 08/01/20 19:54 Urine Glucose (UA) Neg mg/dL (Negative) 08/01/20 19:54 Urine Ketones Neg mg/dL (Negative) 08/01/20 19:54 Urine Blood Sm (Negative) 08/01/20 19:54 Urine Nitrite Pos (Negative) 08/01/20 19:54 Urine Bilirubin Neg (Negative) 08/01/20 19:54 Urine Urobilinogen 4.0 mg/dL (<2.0) 08/01/20 19:54 Ur Leukocyte Esterase Tr (Negative) 08/01/20 19:54 Urine WBC (Auto) > 182.0 /HPF (0.0-6.0) H 08/01/20 19:54 Urine RBC (Auto) 30.0 /HPF (0.0-6.0) 08/01/20 19:54 Urine Bacteria (Auto) 1+ /HPF (Negative) 08/01/20 19:54 Urine WBC Clumps 2+ /HPF 08/01/20 19:54 Urine Yeast (Budding) 2+ /HPF 08/01/20 19:54 Blood Type B POSITIVE 08/01/20 17:30 Antibody Screen Negative 08/01/20 17:30 Microbiology: Microbiology 08/01/20 17:22 Peripheral/Venous Blood Culture - Preliminary NO GROWTH AFTER 24 HOURS 08/01/20 17:22 Peripheral/Venous Blood Culture - Preliminary NO GROWTH AFTER 24 HOURS Zendejas/IV: Voiding Method External Female Catheter Active Medications - Current Medications Current Medications: Generic Name Dose Route Start Last Admin Trade Name Freq PRN Reason Stop Dose Admin Acetaminophen 650 mg 08/01/20 18:50 Acetaminophen 325 Mg Tab PO Q4H PRN Pain MILD(1-3)/Fever >100.5/BENNETT Hydrocodone Bitart/Acetaminophen 1 each 08/01/20 19:04 Hydrocodone/Acetaminophen 5-325 Mg Tab PO Q4H PRN Pain, Moderate (4-6) Allopurinol 200 mg 08/02/20 10:00 08/03/20 09:44 Allopurinol 100 Mg Tab PO 200 mg QDAY CHARBEL Administration Apixaban 5 mg 08/01/20 22:00 08/03/20 09:44 Apixaban 5 Mg Tab PO 5 mg Q12HR CHARBEL Administration Arformoterol Tartrate 15 mcg 08/01/20 20:00 08/03/20 08:29 Arformoterol 15 Mcg/2 Ml Nebu IH 15 mcg Q12HRT CHARBEL Administration Aspirin 81 mg 08/02/20 10:00 08/03/20 09:44 Aspirin 81 Mg Tab Chew PO 81 mg DAILY CHARBEL Administration Atorvastatin Calcium 20 mg 08/01/20 22:00 08/02/20 21:22 Atorvastatin 20 Mg Tab PO 20 mg QHS CHARBEL Administration Benzonatate 100 mg 08/01/20 22:00 08/03/20 05:42 Benzonatate 100 Mg Cap PO 100 mg Q8HR CHARBEL Administration Budesonide 0.5 mg 08/01/20 20:00 08/03/20 08:29 Budesonide 0.5 Mg/2 Ml Nebu IH 0.5 mg Q12HRT CHARBEL Administration Carvedilol 3.125 mg 08/01/20 22:00 08/02/20 21:22 Carvedilol 3.125 Mg Tab PO 3.125 mg Q12HR CHARBEL Administration Sodium Chloride 1,000 mls @ 42 mls/hr 08/01/20 19:00 08/03/20 06:03 Nacl 0.9% 1000 Ml IV 42 mls/hr DIRECT CHARBEL Administration Cefepime HCl 2 gm in 100 mls @ 200 mls/hr 08/03/20 09:00 Cefepime/Ns 2 Gm/100 Ml IV 08/05/20 10:59 Q24H CHARBEL Protocol Ondansetron HCl 4 mg 08/01/20 18:50 Ondansetron 4 Mg/2 Ml Inj IV Q8H PRN Nausea And Vomiting Oxybutynin Chloride 5 mg 08/01/20 20:00 08/03/20 09:45 Oxybutynin 5 Mg Tab PO 5 mg TID CHARBEL Administration Pantoprazole Sodium 20 mg 08/02/20 10:00 08/03/20 09:45 Pantoprazole 20 Mg Tab PO 20 mg QDAY CHARBEL Administration Ranolazine 1,000 mg 08/01/20 22:00 08/03/20 09:45 Ranolazine Er 500 Mg Tab 12hr PO 1,000 mg BID CHARBEL Administration Sodium Chloride 10 ml 08/01/20 22:00 08/03/20 09:45 Sodium Chloride 0.9% 10 Ml Flush Syringe IV 10 ml BID CHARBEL Administration Sodium Chloride 10 ml 08/01/20 18:50 Sodium Chloride 0.9% 10 Ml Flush Syringe IV PRN PRN LINE FLUSH Nutrition/Malnutrition Assess - Dietary Evaluation Nutrition/Malnutrition Findings: Nutrition Notes Start: 08/02/20 14:30 Freq: Status: Active Protocol: Document 08/02/20 14:30 (Rec: 08/02/20 14:37 [id number]) Nutrition Notes Need for Assessment generated from: MD Order,bisque cleaner Initial or Follow up Assessment Current Diagnosis COPD,Coronary Artery Disease, Hypertension,Hyperlipidemia Other Pertinent Diagnosis dementia, GERD Current Diet Cardiac Labs/Tests Na 136 Pertinent Medications NS at 42 ml/hr Height 5 ft 4 in Weight 66.7 kg Usual Body Weight 69 kg [place] Body Weight (kg) 54.54 BMI 25.2 Weight change and time frame 3% wt loss in 3 months. Per chart, pt was 69kg pm 04/18 . Weight Status Appropriate Subjective/Other Information MD order for ONS and RN screen for skin risk. Pt with small wound on buttock. Pt reports eating 50% of meals and 100% of ONS. She is unsure of wt loss or UBW. Percent of energy/protein needs met: 100%/75% (including ONS) Burn Absent Trauma Absent Current % PO Fair (50-74%) Minimum of two criteria No physical signs of malnutrition #1 Nutrition Diagnosis Increased nutrient needs ( specify in comment below) Comments: protein Etiology wound healing As Evidenced by Signs and Symptoms buttock pressure ulcer Is patient on ventilator? No Is Patient Ambulatory and/or Out of Bed No REE-([place]. Jeor-confined to bed) 2549.152 Calculation Used for Recommendations [place] or Additional Notes Protein: (1.25-1.5g/kg) 83- 100g Fluid: 1 ml/kcal or per MD Nutrition Intervention Change Diet Order: Continue Add Supplement/Snack (indicate name/kcal Ensure HP BID /protein ) Provides kCal: 320 Provides Protein (gm) 32 Goal #1 Continue to meet at least 75% of protein and energy needs via PO and ONS intakes Goal #2 Wound healing Anticipated Discharge Needs: Cardiac with ONS PRN Follow-Up By: 08/07/20 Additional Comments FU for intakes and ONS tolerance
[2020-08-03] MEDS: CEFEPIME/NS 2 GM/100 ML 2 GM/100 ML BAG IV SCH (14:23)
[2020-08-03] MEDS: carvediloL 3.125 MG TAB PO SCH ×2 (14:24→22:21)
[2020-08-03] MEDS ORDERED: cefTRIAXone/NS 1 GM/50 ML 1 GM/50 ML BAG IV SCH (17:00)
[2020-08-04] MEDS: BENZONATATE 100 MG CAP PO SCH ×3 (05:07→21:40)
[2020-08-04] MEDS: SODIUM CHLORIDE 0.9% 1000 ML 1,000 ML IV SCH (05:07)
[2020-08-04] MEDS: ARFORMOTEROL 15 MCG/2 ML NEBU IH SCH ×3 (07:37→20:27)
[2020-08-04] MEDS: BUDESONIDE 0.5 MG/2 ML NEBU IH SCH ×3 (07:38→20:27)
[2020-08-04] MEDS: allopurinoL 100 MG TAB PO SCH (09:30)
[2020-08-04] MEDS: RANOLAZINE ER 500 MG TAB 12HR PO SCH ×2 (09:30→21:40)
[2020-08-04] MEDS: ASPIRIN 81 MG TAB CHEW PO SCH (09:31)
[2020-08-04] MEDS: OXYBUTYNIN 5 MG TAB PO SCH ×3 (09:31→23:29)
[2020-08-04] MEDS: APIXABAN 5 MG TAB PO SCH ×2 (09:31→21:40)
[2020-08-04] MEDS: carvediloL 3.125 MG TAB PO SCH ×2 (09:31→21:40)
[2020-08-04] MEDS: PANTOPRAZOLE 20 MG TAB PO SCH (09:31)
[2020-08-04] MEDS: CEFEPIME/NS 2 GM/100 ML 2 GM/100 ML BAG IV SCH (09:45)
--- NOTE | 2020-08-04 10:05 | Progress Note ---
Assessment and Plan Assessment and Plan Assessment and plan: --Acute metabolic encephalopathy; Current Visit: Yes Status: Acute Multifactorial, advanced age dementia, dehydration, A. fib UTI. Monitor Accu-Cheks, treat the underlying cause CT head, no acute abnormality --History of recurrent falls; right knee pain Current Visit: Yes Status: Acute Fall precautions, PT OT Tests done so far; Venous Doppler right lower extremity; negative DVT x-ray right foot; no fracture subluxation edema severe degenerative changes involving MT P joint X-ray right knee; no fracture no subluxation CT head without contrast no focal mass hemorrhage hydrocephalus or no acute acute no acute infarct infarct -- Systemic inflammatory response syndrome Current Visit: Yes Status: Acute Cultures, empiric antibiotics, supportive care --Volume depletion/dehydration Current Visit: Yes Status: Acute IV fluid resuscitation therapy, monitor urine output every shift. --UTI (urinary tract infection) Current Visit: Yes Status: Acute Urinalysis pending at time of admission. Empiric IV antibiotic therapy, IV fluid resuscitation therapy. --Severe protein calorie malnutrition Current Visit: Yes Status: Acute Hypoalbuminemia , albumin 2.2 dietary supplementation, Supportive care, nutrition consult --Atrial fibrillation rate controlled Current Visit: Yes Status: Acute Continue therapeutic anticoagulation with Eliquis, continue rate control, supportive care. --DVT prophylaxis Current Visit: Yes Status: Acute. Continue Eliquis, SCD --Advance care planning/full code Current Visit: Yes Status: Acute Plan of care reviewed with the patient and her nurse DC planning per case management Closely monitor the patient and adjust management as needed although just playing with his girlfriend IV drug so thiamine which patient is at the level neurologist is using the last again left-sided weakness would not be quick Subjective Date of service: 08/04/20 Principal diagnosis: Acute metabolic encephalopathy, UTI Interval history: 84 YO Female with HTN, GERD, HLD, COPD, Atrial Fib on therapeutic anticoagu lation with Eliquis, Pulmonary HTN, CAD S/P CABG, OA, Vascular Dementia, Cerebral Atherosclerosis presents to ED for evaluation. Patient has diminished cognition and is unable to provide detailed history. Patient granddaughter is at bedside during exam and interview and provide detailed history. The granddaughter reports "she has been following and has gotten weak". Patient currently reports increased generalized weakness resulting in multiple falls over the past 1 week with worsening symptoms over the past 4 days. Patient lost her balance and fell to the floor from a standing position today and landed on her right knee. Patient transported to [facility] via private vehicle for further care and evaluation of the aforementioned symptoms. The patient was seen and evaluated in the emergency department. All lab and imaging studies reviewed. The patient was found to to be hypotensive with a systolic blood pressure in the 80s. The patient was found to have systemic inflammatory response syndrome suspected secondary to urinary tract infection, metabolic encephalopathy, volume depletion, malnutrition. Patient placed in observation status and admitted to medical floor and initiated on IV antibiotic therapy. No reports of fever, chills, chest pain, palpitation, productive cough, skin rash, recent ill contacts, or known exposure to COVID-19. Prior admission on 04/26/2020 reviewed. All medication listed at time of admission has been reconciled. Advanced care planning conducted in the emergency department. In summary 84-year-old elderly frail female patient admitted with acute metabolic encephalopathy and UTI, History of recurrent falls, follow PT OT Patient is receiving empiric antibiotics, fall precaution 08/03/2020 ; SNF placement when medically stable 08/04/2020 Patient is alert and oriented to place and person History Interval history: I have seen and examined the patient at the bedside Patient's chart and medications reviewed Patient is slightly better Still confused at times Vital signs noted Objective - Constitutional Vitals: Vital Signs - 12hr 08/03/20 08/03/20 08/03/20 22:17 22:18 22:21 Temperature Pulse Rate 90 89 Pulse Rate [ Posterior Bilateral Throughout] Respiratory Rate Respiratory Rate [Posterior Bilateral Throughout] Blood Pressure 124/63 O2 Sat by Pulse 99 99 Oximetry 08/04/20 08/04/20 08/04/20 05:27 09:31 09:45 Temperature 98.8 F Pulse Rate 85 Pulse Rate [ 85 Posterior Bilateral Throughout] Respiratory 20 Rate Respiratory 18 Rate [Posterior Bilateral Throughout] Blood Pressure 128/60 122/60 O2 Sat by Pulse 99 Oximetry General appearance: Present: no acute distress, well-nourished - EENT Eyes: PERRL, EOM intact ENT: hearing intact, clear oral mucosa Ears: bilateral: normal - Neck Neck: supple, normal ROM - Respiratory Respiratory effort: normal Respiratory: bilateral: CTA - Breasts Breasts: normal - Cardiovascular Heart rate: 78 Rhythm: regular Heart Sounds: Present: S1 & S2. Absent: gallop, rub Extremities: pulses intact, No edema, normal color, Full ROM - Gastrointestinal General gastrointestinal: Present: soft, non-tender, non-distended, normal bowel sounds - Genitourinary Female genitourinary: normal - Integumentary Integumentary: clear, warm, dry - Musculoskeletal Musculoskeletal: 1, strength equal bilaterally - Neurologic Neurologic: moves all extremities - Psychiatric Psychiatric: memory intact, appropriate mood/affect, intact judgment & insight - Allied health notes Allied health notes reviewed: nursing, case management - Labs CBC & Chem 7: 08/02/20 08:11 08/02/20 08:11 HEART Score - HEART Score Troponin: Troponin T < 0.010 ng/mL (0.00-0.029) 08/01/20 15:19
[2020-08-04 14:21] LABS: Basophils % (Auto) 0.7 % (0.0-1.8); Eosinophils # (Auto) 0.1 K/mm3 (0.0-0.4); Hematocrit 23.9 % (30.3-42.9); Hemoglobin 7.6 gm/dl (10.1-14.3); Lymphocytes # (Auto) 1.4 K/mm3 (1.2-5.4); Lymphocytes % (Auto) 38.1 % (13.4-35.0); Mean Corpuscular HGB Conc 32 % (30-34); Mean Corpuscular Volume 93 fl (79-97); Monocytes # (Auto) 0.3 K/mm3 (0.0-0.8); Monocytes % (Auto) 8.1 % (0.0-7.3); Platelet Count 189 K/mm3 (140-440); Red Blood Count 2.58 M/mm3 (3.65-5.03)
[2020-08-04 14:38] LABS: Hemolysis Index 239
[2020-08-04 14:45] LABS: Alanine Aminotransferase TNR units/L (7-56); Albumin TNR g/dL (3.9-5); BUN/Creatinine Ratio TNR; Blood Urea Nitrogen TNR mg/dL (7-17); Calcium TNR mg/dL (8.4-10.2)
[2020-08-04 15:38] LABS: Red Cell Distribution Width 21.3 % (13.2-15.2)
[2020-08-04] MEDS: MAGNESIUM HYDROXIDE (MOM) ORAL LIQD UDC PO PRN (21:41)
[2020-08-05] MEDS: BENZONATATE 100 MG CAP PO SCH ×3 (05:25→22:50)
[2020-08-05] MEDS: SODIUM CHLORIDE 0.9% 1000 ML 1,000 ML IV SCH ×2 (05:29→17:28)
[2020-08-05] MEDS: ARFORMOTEROL 15 MCG/2 ML NEBU IH SCH ×2 (07:55→21:50)
[2020-08-05] MEDS: BUDESONIDE 0.5 MG/2 ML NEBU IH SCH ×2 (07:55→21:50)
[2020-08-05] MEDS: allopurinoL 100 MG TAB PO SCH (09:20)
[2020-08-05] MEDS: OXYBUTYNIN 5 MG TAB PO SCH ×3 (09:20→22:50)
[2020-08-05] MEDS: ASPIRIN 81 MG TAB CHEW PO SCH (09:20)
[2020-08-05] MEDS: APIXABAN 5 MG TAB PO SCH ×2 (09:20→22:50)
[2020-08-05] MEDS: PANTOPRAZOLE 20 MG TAB PO SCH (09:20)
[2020-08-05] MEDS: RANOLAZINE ER 500 MG TAB 12HR PO SCH ×2 (09:20→22:50)
[2020-08-05] MEDS: carvediloL 3.125 MG TAB PO SCH ×2 (09:21→22:50)
[2020-08-05] MEDS: CEFEPIME/NS 2 GM/100 ML 2 GM/100 ML BAG IV SCH (09:23)
[2020-08-05] MEDS: ACETAMINOPHEN 325 MG TAB PO PRN (22:59)
--- NOTE | 2020-08-05 23:18 | Progress Note ---
Assessment and Plan Assessment and Plan --Acute metabolic encephalopathy; Current Visit: Yes Status: Acute Multifactorial, advanced age dementia, dehydration, A. fib UTI. Monitor Accu-Cheks, treat the underlying cause CT head, no acute abnormality --History of recurrent falls; right knee pain Current Visit: Yes Status: Acute Fall precautions, PT OT Tests done so far; Venous Doppler right lower extremity; negative DVT x-ray right foot; no fracture subluxation edema severe degenerative changes involving MT P joint X-ray right knee; no fracture no subluxation CT head without contrast no focal mass hemorrhage hydrocephalus or no acute acute no acute infarct infarct -- Systemic inflammatory response syndrome Current Visit: Yes Status: Acute Cultures, empiric antibiotics, supportive care --Volume depletion/dehydration Current Visit: Yes Status: Acute IV fluid resuscitation therapy, monitor urine output every shift. --UTI (urinary tract infection) Current Visit: Yes Status: Acute Urinalysis pending at time of admission. Empiric IV antibiotic therapy, IV fluid resuscitation therapy. --Severe protein calorie malnutrition Current Visit: Yes Status: Acute Hypoalbuminemia , albumin 2.2 dietary supplementation, Supportive care, nutrition consult --Atrial fibrillation rate controlled Current Visit: Yes Status: Acute Continue therapeutic anticoagulation with Eliquis, continue rate control, supportive care. --DVT prophylaxis Current Visit: Yes Status: Acute. Continue Eliquis, SCD --Advance care planning/full code Current Visit: Yes Status: Acute Plan of care reviewed with the patient and her nurse DC planning per case management Closely monitor the patient and adjust management as needed although just playing with his girlfriend IV drug so thiamine which patient is at the level neurologist is using the last again left-sided weakness would not be quick Subjective Date of service: 08/05/20 Principal diagnosis: Acute metabolic encephalopathy, UTI Interval history: 84 YO Female with HTN, GERD, HLD, COPD, Atrial Fib on therapeutic anticoagulation with Eliquis, Pulmonary HTN, CAD S/P CABG, OA, Vascular Dementia, Cerebral Atherosclerosis presents to ED for evaluation. Patient has diminished cognition and is unable to provide detailed history. Patient granddaughter is at bedside during exam and interview and provide detailed history. The granddaughter reports "she has been following and has gotten weak". Patient currently reports increased generalized weakness resulting in multiple falls over the past 1 week with worsening symptoms over the past 4 days. Patient lost her balance and fell to the floor from a standing position today and landed on her right knee. Patient transported to [facility] via private vehicle for further care and evaluation of the aforementioned symptoms. The patient was seen and evaluated in the emergency department. All lab and imaging studies reviewed. The patient was found to to be hypotensive with a systolic blood pressure in the 80s. The patient was found to have systemic inflammatory response syndrome suspected secondary to urinary tract infection, metabolic encephalopathy, volume depletion, malnutrition. Patient placed in observation status and admitted to medical floor and initiated on IV antibiotic therapy. No reports of fever, chills, chest pain, palpitation, productive cough, skin rash, recent ill contacts, or known exposure to COVID-19. Prior admission on 04/26/2020 reviewed. All medication listed at time of admission has been reconciled. Advanced care planning conducted in the emergency department. In summary 84-year-old elderly frail female patient admitted with acute metabolic encephalopathy and UTI, History of recurrent falls, follow PT OT Patient is receiving empiric antibiotics, fall precaution 08/03/2020 ; SNF placement when medically stable 08/04/2020 Patient is alert and oriented to place and person 08/05/20 Patient is alert and oriented Objective - Constitutional Vitals: Vital Signs - 12hr 08/05/20 08/05/20 20:00 20:42 Pulse Rate [ 84 From Monitor] Pulse Rate [ 90 Posterior Bilateral Throughout] Respiratory 18 Rate Respiratory 18 Rate [Posterior Bilateral Throughout] General appearance: Present: no acute distress, well-nourished - EENT Eyes: PERRL, EOM intact ENT: hearing intact, clear oral mucosa Ears: bilateral: normal - Neck Neck: supple, normal ROM - Respiratory Respiratory effort: normal Respiratory: bilateral: CTA - Breasts Breasts: normal - Cardiovascular Heart rate: 78 Rhythm: regular Heart Sounds: Present: S1 & S2. Absent: gallop, rub Extremities: pulses intact, No edema, normal color, Full ROM - Gastrointestinal General gastrointestinal: Present: soft, non-tender, non-distended, normal bowel sounds - Genitourinary Female genitourinary: normal - Integumentary Integumentary: clear, warm, dry - Musculoskeletal Musculoskeletal: 1, strength equal bilaterally - Neurologic Neurologic: moves all extremities - Psychiatric Psychiatric: memory intact, appropriate mood/affect, intact judgment & insight - Labs CBC & Chem 7: 08/04/20 13:48 08/04/20 13:48 HEART Score - HEART Score Troponin: Troponin T < 0.010 ng/mL (0.00-0.029) 08/01/20 15:19
[2020-08-06] MEDS: BENZONATATE 100 MG CAP PO SCH ×3 (05:53→23:25)
[2020-08-06] MEDS: ARFORMOTEROL 15 MCG/2 ML NEBU IH SCH ×2 (08:49→20:48)
[2020-08-06] MEDS: BUDESONIDE 0.5 MG/2 ML NEBU IH SCH ×2 (08:49→20:48)
[2020-08-06] MEDS: cefTRIAXone/NS 2 GM/100 ML 2 GM/100 ML BAG IV SCH (09:51)
[2020-08-06] MEDS: ASPIRIN 81 MG TAB CHEW PO SCH (09:52)
[2020-08-06] MEDS: PANTOPRAZOLE 20 MG TAB PO SCH (09:52)
[2020-08-06] MEDS: allopurinoL 100 MG TAB PO SCH (09:52)
[2020-08-06] MEDS: carvediloL 3.125 MG TAB PO SCH ×2 (09:52→23:24)
[2020-08-06] MEDS: APIXABAN 5 MG TAB PO SCH ×2 (09:52→23:25)
[2020-08-06] MEDS: OXYBUTYNIN 5 MG TAB PO SCH ×3 (09:52→23:25)
[2020-08-06] MEDS: RANOLAZINE ER 500 MG TAB 12HR PO SCH ×2 (09:52→23:25)
[2020-08-06] MEDS: ACETAMINOPHEN 325 MG TAB PO PRN (11:08)
[2020-08-06] MEDS: FUROSEMIDE 40 MG/4 ML INJ IV SCH (23:25)
[2020-08-07] MEDS: BENZONATATE 100 MG CAP PO SCH ×3 (05:59→21:00)
[2020-08-07 06:25] LABS: Basophils % (Auto) 0.4 % (0.0-1.8); Eosinophils # (Auto) 0.1 K/mm3 (0.0-0.4); Eosinophils % (Auto) 2.4 % (0.0-4.3); Hematocrit 21.5 % (30.3-42.9); Hemoglobin 6.9 gm/dl (10.1-14.3); Lymphocytes # (Auto) 1.3 K/mm3 (1.2-5.4); Mean Corpuscular HGB Conc 32 % (30-34); Mean Corpuscular Volume 91 fl (79-97); Monocytes # (Auto) 0.4 K/mm3 (0.0-0.8); Platelet Count 185 K/mm3 (140-440); Red Blood Count 2.36 M/mm3 (3.65-5.03); Red Cell Distribution Width 21.6 % (13.2-15.2)
[2020-08-07 06:45] LABS: Alanine Aminotransferase 12 units/L (7-56); Albumin 1.8 g/dL (3.9-5); Blood Urea Nitrogen 12 mg/dL (7-17); Hemolysis Index 5
[2020-08-07 06:46] LABS: BUN/Creatinine Ratio 17
--- NOTE | 2020-08-07 07:05 | Progress Note ---
Assessment and Plan Assessment and Plan --Acute metabolic encephalopathy; Current Visit: Yes Status: Acute Multifactorial, advanced age dementia, dehydration, A. fib UTI. Monitor Accu-Cheks, treat the underlying cause CT head, no acute abnormality --History of recurrent falls; right knee pain Current Visit: Yes Status: Acute Fall precautions, PT OT Tests done so far; Venous Doppler right lower extremity; negative DVT x-ray right foot; no fracture subluxation edema severe degenerative changes involving MT P joint X-ray right knee; no fracture no subluxation CT head without contrast no focal mass hemorrhage hydrocephalus or no acute acute no acute infarct infarct -- Systemic inflammatory response syndrome Current Visit: Yes Status: Acute Cultures, empiric antibiotics, supportive care --Bilateral pedal edema Current Visit: Yes multifactorial Low albumin levels Initiated on IV Lasix once a day --UTI (urinary tract infection) Current Visit: Yes Status: Acute Urinalysis pending at time of admission. Empiric IV antibiotic therapy, IV fluid resuscitation therapy. --Severe protein calorie malnutrition Current Visit: Yes Status: Acute Hypoalbuminemia , albumin 2.2 dietary supplementation, Supportive care, nutrition consult --Atrial fibrillation rate controlled Current Visit: Yes Status: Acute Continue therapeutic anticoagulation with Eliquis, continue rate control, supportive care. --DVT prophylaxis Current Visit: Yes Status: Acute. Continue Eliquis, SCD --Advance care planning/full code Current Visit: Yes Status: Acute Plan of care reviewed with the patient and her nurse DC planning per case management Placement issues Discussed with case management Subjective Date of service: 08/06/20 Principal diagnosis: Acute metabolic encephalopathy, UTI Interval history: 84 YO Female with HTN, GERD, HLD, COPD, Atrial Fib on therapeutic anticoagul ation with Eliquis, Pulmonary HTN, CAD S/P CABG, OA, Vascular Dementia, Cerebral Atherosclerosis presents to ED for evaluation. Patient has diminished cognition and is unable to provide detailed history. Patient granddaughter is at bedside during exam and interview and provide detailed history. The granddaughter reports "she has been following and has gotten weak". Patient currently reports increased generalized weakness resulting in multiple falls over the past 1 week with worsening symptoms over the past 4 days. Patient lost her balance and fell to the floor from a standing position today and landed on her right knee. Patient transported to [facility] via private vehicle for further care and evaluation of the aforementioned symptoms. The patient was seen and evaluated in the emergency department. All lab and imaging studies reviewed. The patient was found to to be hypotensive with a systolic blood pressure in the 80s. The patient was found to have systemic inflammatory response syndrome suspected secondary to urinary tract infection, metabolic encephalopathy, volume depletion, malnutrition. Patient placed in observation status and admitted to medical floor and initiated on IV antibiotic therapy. No reports of fever, chills, chest pain, palpitation, productive cough, skin rash, recent ill contacts, or known exposure to COVID-19. Prior admission on 04/26/2020 reviewed. All medication listed at time of admission has been reconciled. Advanced care planning conducted in the emergency department. In summary 84-year-old elderly frail female patient admitted with acute metabolic encephalopathy and UTI, History of recurrent falls, follow PT OT Patient is receiving empiric antibiotics, fall precaution 08/03/2020 ; SNF placement when medically stable 08/04/2020 Patient is alert and oriented to place and person 08/05/20 Patient is alert and oriented 08/06/2020 Patient is alert and oriented Waiting for placement Objective - Constitutional Vitals: Vital Signs - 12hr 08/06/20 08/06/20 20:46 21:52 Pulse Rate [ 81 Posterior Bilateral Throughout] Respiratory 18 Rate Respiratory 18 Rate [Posterior Bilateral Throughout] General appearance: Present: no acute distress, well-nourished - EENT Eyes: PERRL, EOM intact ENT: hearing intact, clear oral mucosa Ears: bilateral: normal - Neck Neck: supple, normal ROM - Respiratory Respiratory effort: normal Respiratory: bilateral: CTA - Breasts Breasts: normal - Cardiovascular Heart rate: 78 Rhythm: regular Heart Sounds: Present: S1 & S2. Absent: gallop, rub Extremities: pulses intact, No edema, normal color, Full ROM - Gastrointestinal General gastrointestinal: Present: soft, non-tender, non-distended, normal bowel sounds - Genitourinary Female genitourinary: normal - Integumentary Integumentary: clear, warm, dry - Musculoskeletal Musculoskeletal: 1, strength equal bilaterally - Neurologic Neurologic: moves all extremities - Psychiatric Psychiatric: memory intact, appropriate mood/affect, intact judgment & insight - Labs CBC & Chem 7: 08/07/20 05:41 08/07/20 05:41 Labs: Abnormal lab results 08/07/20 08/07/20 Range/Units 05:41 05:41 RBC 2.36 L (3.65-5.03) M/mm3 Hgb 6.9 L (10.1-14.3) gm/dl Hct 21.5 L (30.3-42.9) % RDW 21.6 H (13.2-15.2) % [place] % (Auto) 9.0 H (0.0-7.3) % Alkaline Phosphatase 165 H (35-129) units/L Albumin 1.8 L (3.9-5) g/dL HEART Score - HEART Score Troponin: Troponin T < 0.010 ng/mL (0.00-0.029) 08/01/20 15:19
--- NOTE | 2020-08-07 08:15 | Progress Note ---
Assessment and Plan Assessment and plan: --Acute metabolic encephalopathy; Current Visit: Yes Status: Acute Multifactorial, advanced age dementia, dehydration, A. fib UTI. Monitor Accu-Cheks, treat the underlying cause CT head, no acute abnormality --History of recurrent falls; right knee pain Current Visit: Yes Status: Acute Fall precautions, PT OT Tests done so far; Venous Doppler right lower extremity; negative DVT x-ray right foot; no fracture subluxation edema severe degenerative changes involving MT P joint X-ray right knee; no fracture no subluxation CT head without contrast no focal mass hemorrhage hydrocephalus or no acute acute no acute infarct infarct -- Systemic inflammatory response syndrome Current Visit: Yes Status: Acute Cultures, empiric antibiotics, supportive care --Volume depletion/dehydration Current Visit: Yes Status: Acute IV fluid resuscitation therapy, monitor urine output every shift. --UTI (urinary tract infection) Current Visit: Yes Status: Acute Urinalysis pending at time of admission. Empiric IV antibiotic therapy, IV fluid resuscitation therapy. --Severe protein calorie malnutrition Current Visit: Yes Status: Acute Hypoalbuminemia , albumin 2.2 dietary supplementation, Supportive care, nutrition consult --Atrial fibrillation rate controlled Current Visit: Yes Status: Acute Continue therapeutic anticoagulation with Eliquis, continue rate control, supportive care. --DVT prophylaxis Current Visit: Yes Status: Acute. Continue Eliquis, SCD --Advance care planning/full code Current Visit: Yes Status: Acute Plan of care reviewed with the patient and her nurse DC planning per case management Closely monitor the patient and adjust management as needed 84 YO Female with HTN, GERD, HLD, COPD, Atrial Fib on therapeutic anticoagulation with Eliquis, Pulmonary HTN, CAD S/P CABG, OA, Vascular Dementia, Cerebral Atherosclerosis presents to ED for evaluation. Patient has diminished cognition and is unable to provide detailed history. Patient dung barger is at bedside during exam and interview and provide detailed history. The granddaughter reports "she has been following and has gotten weak". Patient currently reports increased generalized weakness resulting in multiple falls over the past 1 week with worsening symptoms over the past 4 days. Patient lost her balance and fell to the floor from a standing position today and landed on h er right knee. Patient transported to [facility] via private vehicle for further care and evaluation of the aforementioned symptoms. The patient was seen and evaluated in the emergency department. All lab and imaging studies reviewed. The patient was found to to be hypotensive with a systolic blood pressure in the 80s. The patient was found to have systemic inflammatory response syndrome suspected secondary to urinary tract infection, metabolic encephalopathy, volume depletion, malnutrition. Patient placed in observation status and admitted to medical floor and initiated on IV antibiotic therapy. No reports of fever, chills, chest pain, palpitation, productive cough, skin rash, recent ill co ntacts, or known exposure to COVID-19. Prior admission on 04/26/2020 reviewed. All medication listed at time of admission has been reconciled. Advanced care planning conducted in the emergency department. In summary 84-year-old elderly frail female patient admitted with acute metabolic encephalopathy and UTI, History of recurrent falls, follow PT OT Patient is receiving empiric antibiotics, fall precaution 08/03/2020 ; SNF placement when medically stable 08/04/2020 Patient is alert and oriented to place and person 08/05/20 Patient is alert and oriented 08/06/2020 Patient is alert and oriented Waiting for placement 08/07/2020; Awaiting placement DC planning per case management History Interval history: I have seen and examined the patient at the bedside in her room this morning Patient's chart and medications reviewed Patient is eating breakfast tolerating well No new complaints Vital signs reviewed Hospitalist Physical - Constitutional Vitals: Temp Pulse Resp BP Pulse Ox 97.9 F 81 18 117/55 99 08/06/20 09:53 08/06/20 20:46 08/06/20 21:52 08/06/20 09:53 08/06/20 09:53 General appearance: Present: no acute distress, well-nourished - EENT Eyes: Present: PERRL, EOM intact - Neck Neck: Present: supple, normal ROM - Respiratory Respiratory effort: normal Respiratory: bilateral: diminished, negative: rales, rhonchi, wheezing - Cardiovascular Rhythm: regular Heart Sounds: Present: S1 & S2 - Extremities Extremities: no ischemia, No edema - Abdominal General gastrointestinal: soft, non-tender, non-distended, normal bowel sounds - Integumentary Integumentary: Present: clear, warm - Psychiatric Psychiatric: appropriate mood/affect, cooperative - Neurologic Neurologic: CNII-XII intact, moves all extremities HEART Score - HEART Score Troponin: Troponin T < 0.010 ng/mL (0.00-0.029) 08/01/20 15:19 Results - Labs CBC & Chem 7: 08/07/20 05:41 08/07/20 05:41 Labs: Laboratory Last Values WBC 4.6 K/mm3 (4.5-11.0) 08/07/20 05:41 RBC 2.36 M/mm3 (3.65-5.03) L 08/07/20 05:41 Hgb 6.9 gm/dl (10.1-14.3) L 08/07/20 05:41 Hct 21.5 % (30.3-42.9) L 08/07/20 05:41 MCV 91 fl (79-97) 08/07/20 05:41 MCH 29 pg (28-32) 08/07/20 05:41 MCHC 32 % (30-34) 08/07/20 05:41 RDW 21.6 % (13.2-15.2) H 08/07/20 05:41 Plt Count 185 K/mm3 (140-440) 08/07/20 05:41 Lymph % (Auto) 28.0 % (13.4-35.0) 08/07/20 05:41 [place] % (Auto) 9.0 % (0.0-7.3) H 08/07/20 05:41 Eos % (Auto) 2.4 % (0.0-4.3) 08/07/20 05:41 Baso % (Auto) 0.4 % (0.0-1.8) 08/07/20 05:41 Lymph # (Auto) 1.3 K/mm3 (1.2-5.4) 08/07/20 05:41 [place] # (Auto) 0.4 K/mm3 (0.0-0.8) 08/07/20 05:41 Eos # (Auto) 0.1 K/mm3 (0.0-0.4) 08/07/20 05:41 Baso # (Auto) 0.0 K/mm3 (0.0-0.1) 08/07/20 05:41 Seg Neutrophils % 60.2 % (40.0-70.0) 08/07/20 05:41 Seg Neutrophils # 2.8 K/mm3 (1.8-7.7) 08/07/20 05:41 Sodium 137 mmol/L (137-145) 08/07/20 05:41 Potassium 4.0 mmol/L (3.6-5.0) 08/07/20 05:41 Chloride 106.3 mmol/L (98-107) 08/07/20 05:41 Carbon Dioxide 24 mmol/L (22-30) 08/07/20 05:41 Anion Gap 11 mmol/L 08/07/20 05:41 BUN 12 mg/dL (7-17) 08/07/20 05:41 Creatinine 0.7 mg/dL (0.6-1.2) 08/07/20 05:41 Estimated GFR > 60 ml/min 08/07/20 05:41 BUN/Creatinine Ratio 17 % 08/07/20 05:41 Glucose 95 mg/dL (65-100) 08/07/20 05:41 Lactic Acid 1.80 mmol/L (0.7-2.0) 08/01/20 19:55 Calcium 9.0 mg/dL (8.4-10.2) 08/07/20 05:41 Total Bilirubin 0.50 mg/dL (0.1-1.2) 08/07/20 05:41 AST 31 units/L (5-40) 08/07/20 05:41 ALT 12 units/L (7-56) 08/07/20 05:41 Alkaline Phosphatase 165 units/L (35-129) H 08/07/20 05:41 Troponin T < 0.010 ng/mL (0.00-0.029) 08/01/20 15:19 Total Protein 6.6 g/dL (6.3-8.2) 08/07/20 05:41 Albumin 1.8 g/dL (3.9-5) L 08/07/20 05:41 Albumin/Globulin Ratio 0.4 % 08/07/20 05:41 Urine Color Judi (Yellow) 08/01/20 19:54 Urine Turbidity Cloudy (Clear) 08/01/20 19:54 Urine pH 5.0 (5.0-7.0) 08/01/20 19:54 Ur Specific [place] 1.018 (1.003-1.030) 08/01/20 19:54 Urine Protein 30 mg/dl mg/dL (Negative) 08/01/20 19:54 Urine Glucose (UA) Neg mg/dL (Negative) 08/01/20 19:54 Urine Ketones Neg mg/dL (Negative) 08/01/20 19:54 Urine Blood Sm (Negative) 08/01/20 19:54 Urine Nitrite Pos (Negative) 08/01/20 19:54 Urine Bilirubin Neg (Negative) 08/01/20 19:54 Urine Urobilinogen 4.0 mg/dL (<2.0) 08/01/20 19:54 Ur Leukocyte Esterase Tr (Negative) 08/01/20 19:54 Urine WBC (Auto) > 182.0 /HPF (0.0-6.0) H 08/01/20 19:54 Urine RBC (Auto) 30.0 /HPF (0.0-6.0) 08/01/20 19:54 Urine Bacteria (Auto) 1+ /HPF (Negative) 08/01/20 19:54 Urine WBC Clumps 2+ /HPF 08/01/20 19:54 Urine Yeast (Budding) 2+ /HPF 08/01/20 19:54 Coronavirus (PCR) Negative (Negative) 08/03/20 Unknown Blood Type B POSITIVE 08/01/20 17:30 Antibody Screen Negative 08/01/20 17:30 Microbiology: Microbiology 08/01/20 17:22 Peripheral/Venous Blood Culture - Final NO GROWTH AFTER 5 DAYS 08/01/20 17:22 Peripheral/Venous Blood Culture - Final NO GROWTH AFTER 5 DAYS Zendejas/IV: Voiding Method External Female Catheter Active Medications - Current Medications Current Medications: Generic Name Dose Route Start Last Admin Trade Name Freq PRN Reason Stop Dose Admin Acetaminophen 650 mg 08/01/20 18:50 08/06/20 11:08 Acetaminophen 325 Mg Tab PO 650 mg Q4H PRN Administration Pain MILD(1-3)/Fever >100.5/BENNETT Hydrocodone Bitart/Acetaminophen 1 each 08/01/20 19:04 Hydrocodone/Acetaminophen 5-325 Mg Tab PO Q4H PRN Pain, Moderate (4-6) Allopurinol 200 mg 08/02/20 10:00 08/06/20 09:52 Allopurinol 100 Mg Tab PO 200 mg QDAY CHARBEL Administration Apixaban 5 mg 08/01/20 22:00 08/06/20 23:25 Apixaban 5 Mg Tab PO 5 mg Q12HR CHARBEL Administration Arformoterol Tartrate 15 mcg 08/01/20 20:00 08/06/20 20:48 Arformoterol 15 Mcg/2 Ml Nebu IH 15 mcg Q12HRT CHARBEL Administration Aspirin 81 mg 08/02/20 10:00 08/06/20 09:52 Aspirin 81 Mg Tab Chew PO 81 mg DAILY CHARBEL Administration Atorvastatin Calcium 20 mg 08/01/20 22:00 08/06/20 23:24 Atorvastatin 20 Mg Tab PO 20 mg QHS CHARBEL Administration Benzonatate 100 mg 08/01/20 22:00 08/07/20 05:59 Benzonatate 100 Mg Cap PO 100 mg Q8HR CHARBEL Administration Budesonide 0.5 mg 08/01/20 20:00 08/06/20 20:48 Budesonide 0.5 Mg/2 Ml Nebu IH 0.5 mg Q12HRT CHARBEL Administration Carvedilol 3.125 mg 08/01/20 22:00 08/06/20 23:24 Carvedilol 3.125 Mg Tab PO 3.125 mg Q12HR CHARBEL Administration Furosemide 40 mg 08/06/20 20:00 08/06/20 23:25 Furosemide 40 Mg/4 Ml Inj IV 40 mg Q24H CHARBEL Administration Ceftriaxone Sodium 2 gm in 100 mls @ 200 mls/hr 08/06/20 10:00 08/06/20 09:51 Rocephin/Ns 2 Gm/100 Ml IV 200 mls/hr Q24HR CHARBEL Administration Protocol Sodium Chloride 500 mls @ 0 mls/hr 08/07/20 08:12 Nacl 0.9% 500 Ml IV 08/07/20 08:13 ONCE ONE As Directed Magnesium Hydroxide 30 ml 08/04/20 20:23 08/04/20 21:41 Magnesium Hydroxide (Mom) Oral Liqd Udc PO 30 ml Q4H PRN Administration Constipation Ondansetron HCl 4 mg 08/01/20 18:50 Ondansetron 4 Mg/2 Ml Inj IV Q8H PRN Nausea And Vomiting Oxybutynin Chloride 5 mg 08/01/20 20:00 08/06/20 23:25 Oxybutynin 5 Mg Tab PO 5 mg TID CHARBEL Administration Pantoprazole Sodium 20 mg 08/02/20 10:00 08/06/20 09:52 Pantoprazole 20 Mg Tab PO 20 mg QDAY CHARBEL Administration Ranolazine 1,000 mg 08/01/20 22:00 08/06/20 23:25 Ranolazine Er 500 Mg Tab 12hr PO 1,000 mg BID CHARBEL Administration Sodium Chloride 10 ml 08/01/20 22:00 08/06/20 23:25 Sodium Chloride 0.9% 10 Ml Flush Syringe IV 10 ml BID CHARBEL Administration Sodium Chloride 10 ml 08/01/20 18:50 Sodium Chloride 0.9% 10 Ml Flush Syringe IV PRN PRN LINE FLUSH Nutrition/Malnutrition Assess - Dietary Evaluation Nutrition/Malnutrition Findings: Nutrition Notes Start: 08/02/20 14:30 Freq: Status: Active Protocol: Document 08/02/20 14:30 (Rec: 08/02/20 14:37 [id number]) Nutrition Notes Need for Assessment 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 Per chart, pt was 69kg pm 04/18 . Weight Status Appropriate Subjective/Other Information MD order for ONS and RN screen for skin risk. Pt with small wound on buttock. Pt reports eating 50% of meals and 100% of ONS. She is unsure of wt loss or UBW. Percent of energy/protein needs met: 100%/75% (including ONS) Burn Absent Trauma Absent Current % PO Fair (50-74%) Minimum of two criteria No physical signs of malnutrition #1 Nutrition Diagnosis Increased nutrient needs ( specify in comment below) Comments: protein Etiology wound healing As Evidenced by Signs and Symptoms buttock pressure ulcer Is patient on ventilator? No Is Patient Ambulatory and/or Out of Bed No REE-([facility]-confined to bed) 3225.[address] Calculation Used for Recommendations [facility] Additional Notes Protein: (1.25-1.5g/kg) 83- 100g Fluid: 1 ml/kcal or per MD Nutrition Intervention Change Diet Order: Continue Add Supplement/Snack (indicate name/kcal Ensure HP BID /protein ) Provides kCal: 320 Provides Protein (gm) 32 Goal #1 Continue to meet at least 75% of protein and energy needs via PO and ONS intakes Goal #2 Wound healing Anticipated Discharge Needs: Cardiac with ONS PRN Follow-Up By: 08/07/20 Additional Comments FU for intakes and ONS tolerance
[2020-08-07] MEDS ORDERED: SODIUM CHLORIDE 0.9% 500 ML 500 ML IV SCH (09:00)
[2020-08-07] MEDS: carvediloL 3.125 MG TAB PO SCH ×2 (09:35→21:00)
[2020-08-07] MEDS: RANOLAZINE ER 500 MG TAB 12HR PO SCH ×2 (09:36→21:01)
[2020-08-07] MEDS: PANTOPRAZOLE 20 MG TAB PO SCH (09:36)
[2020-08-07] MEDS: ASPIRIN 81 MG TAB CHEW PO SCH (09:36)
[2020-08-07] MEDS: OXYBUTYNIN 5 MG TAB PO SCH ×3 (09:36→20:57)
[2020-08-07] MEDS: APIXABAN 5 MG TAB PO SCH ×2 (09:36→21:00)
[2020-08-07] MEDS: allopurinoL 100 MG TAB PO SCH (09:36)
[2020-08-07] MEDS: cefTRIAXone/NS 2 GM/100 ML 2 GM/100 ML BAG IV SCH (09:37)
[2020-08-07] MEDS: BUDESONIDE 0.5 MG/2 ML NEBU IH SCH ×2 (10:00→20:42)
[2020-08-07] MEDS: ARFORMOTEROL 15 MCG/2 ML NEBU IH SCH ×2 (10:01→20:42)
[2020-08-07] MEDS ORDERED: SODIUM CHLORIDE 0.9% 500 ML 500 ML IV ONE (20:31)
[2020-08-07] MEDS: FUROSEMIDE 40 MG/4 ML INJ IV SCH (20:56)
[2020-08-08] MEDS: BENZONATATE 100 MG CAP PO SCH ×3 (06:26→23:07)
[2020-08-08] MEDS: BUDESONIDE 0.5 MG/2 ML NEBU IH SCH ×2 (08:27→20:21)
[2020-08-08] MEDS: ARFORMOTEROL 15 MCG/2 ML NEBU IH SCH ×2 (08:27→20:21)
[2020-08-08] MEDS: OXYBUTYNIN 5 MG TAB PO SCH ×3 (08:53→23:08)
[2020-08-08] MEDS: RANOLAZINE ER 500 MG TAB 12HR PO SCH ×2 (09:20→23:07)
[2020-08-08] MEDS: ASPIRIN 81 MG TAB CHEW PO SCH (09:21)
[2020-08-08] MEDS: APIXABAN 5 MG TAB PO SCH ×2 (09:21→23:07)
[2020-08-08] MEDS: allopurinoL 100 MG TAB PO SCH (09:21)
[2020-08-08] MEDS: PANTOPRAZOLE 20 MG TAB PO SCH (09:21)
[2020-08-08] MEDS: carvediloL 3.125 MG TAB PO SCH ×2 (09:22→23:08)
[2020-08-08] MEDS: cefTRIAXone/NS 2 GM/100 ML 2 GM/100 ML BAG IV SCH (09:23)
--- NOTE | 2020-08-08 09:47 | Progress Note ---
Assessment and Plan Assessment and plan: --Acute metabolic encephalopathy; Current Visit: Yes Status: Acute Multifactorial, advanced age dementia, dehydration, A. fib UTI. Monitor Accu-Cheks, treat the underlying cause CT head, no acute abnormality --History of recurrent falls; right knee pain Current Visit: Yes Status: Acute Fall precautions, PT OT Tests done so far; Venous Doppler right lower extremity; negative DVT x-ray right foot; no fracture subluxation edema severe degenerative changes involving MT P joint X-ray right knee; no fracture no subluxation CT head without contrast no focal mass hemorrhage hydrocephalus or no acute acute no acute infarct infarct -- Systemic inflammatory response syndrome Current Visit: Yes Status: Acute Cultures, empiric antibiotics, supportive care --Volume depletion/dehydration Current Visit: Yes Status: Acute IV fluid resuscitation therapy, monitor urine output every shift. --UTI (urinary tract infection) Current Visit: Yes Status: Acute Urinalysis pending at time of admission. Empiric IV antibiotic therapy, IV fluid resuscitation therapy. --Severe protein calorie malnutrition Current Visit: Yes Status: Acute Hypoalbuminemia , albumin 2.2 dietary supplementation, Supportive care, nutrition consult --Atrial fibrillation rate controlled Current Visit: Yes Status: Acute Continue therapeutic anticoagulation with Eliquis, continue rate control, supportive care. --DVT prophylaxis Current Visit: Yes Status: Acute. Continue Eliquis, SCD --Advance care planning/full code Current Visit: Yes Status: Acute Plan of care reviewed with the patient and her nurse DC planning per case management Closely monitor the patient and adjust management as needed 84 YO Female with HTN, GERD, HLD, COPD, Atrial Fib on therapeutic anticoagulation with Eliquis, Pulmonary HTN, CAD S/P CABG, OA, Vascular Dementia, Cerebral Atherosclerosis presents to ED for evaluation. Patient has diminished cognition and is unable to provide detailed history. Patient dung barger is at bedside during exam and interview and provide detailed history. The granddaughter reports "she has been following and has gotten weak". Patient currently reports increased generalized weakness resulting in multiple falls over the past 1 week with worsening symptoms over the past 4 days. Patient lost her balance and fell to the floor from a standing position today and landed on h er right knee. Patient transported to [facility] via private vehicle for further care and evaluation of the aforementioned symptoms. The patient was seen and evaluated in the emergency department. All lab and imaging studies reviewed. The patient was found to to be hypotensive with a systolic blood pressure in the 80s. The patient was found to have systemic inflammatory response syndrome suspected secondary to urinary tract infection, metabolic encephalopathy, volume depletion, malnutrition. Patient placed in observation status and admitted to medical floor and initiated on IV antibiotic therapy. No reports of fever, chills, chest pain, palpitation, productive cough, skin rash, recent ill co ntacts, or known exposure to COVID-19. Prior admission on 04/26/2020 reviewed. All medication listed at time of admission has been reconciled. Advanced care planning conducted in the emergency department. In summary 84-year-old elderly frail female patient admitted with acute metabolic encephalopathy and UTI, History of recurrent falls, follow PT OT Patient is receiving empiric antibiotics, fall precaution 08/03/2020 ; SNF placement when medically stable 08/04/2020 Patient is alert and oriented to place and person 08/05/20 Patient is alert and oriented 08/06/2020 Patient is alert and oriented Waiting for placement 08/07/2020; Awaiting placement DC planning per case management 08/08/2020; pending placement Awaiting insulin insurance authorization Medically stable for discharge History Interval history: I seen and examined the patient at the bedside Patient's chart and medications reviewed Patient had anemia received 1 unit of PRBC yesterday check posttransfusion H&H Patient is awaiting placement, insurance authorization Vital signs noted Hospitalist Physical - Constitutional Vitals: Temp Pulse Resp BP Pulse Ox 98.1 F 84 18 109/58 100 08/08/20 02:55 08/08/20 02:55 08/08/20 02:55 08/08/20 02:55 08/08/20 02:55 General appearance: Present: no acute distress, well-nourished - EENT Eyes: Present: PERRL, EOM intact - Neck Neck: Present: supple, normal ROM - Respiratory Respiratory effort: normal Respiratory: bilateral: diminished, rales, negative: rhonchi, wheezing - Cardiovascular Rhythm: regular Heart Sounds: Present: S1 & S2 - Extremities Extremities: no ischemia, No edema - Abdominal General gastrointestinal: soft, non-tender, non-distended - Integumentary Integumentary: Present: clear, warm - Psychiatric Psychiatric: appropriate mood/affect, other - Neurologic Neurologic: moves all extremities HEART Score - HEART Score Troponin: Troponin T < 0.010 ng/mL (0.00-0.029) 08/01/20 15:19 Results - Labs CBC & Chem 7: 08/07/20 05:41 08/07/20 05:41 Labs: Laboratory Last Values WBC 4.6 K/mm3 (4.5-11.0) 08/07/20 05:41 RBC 2.36 M/mm3 (3.65-5.03) L 08/07/20 05:41 Hgb 6.9 gm/dl (10.1-14.3) L 08/07/20 05:41 Hct 21.5 % (30.3-42.9) L 08/07/20 05:41 MCV 91 fl (79-97) 08/07/20 05:41 MCH 29 pg (28-32) 08/07/20 05:41 MCHC 32 % (30-34) 08/07/20 05:41 RDW 21.6 % (13.2-15.2) H 08/07/20 05:41 Plt Count 185 K/mm3 (140-440) 08/07/20 05:41 Lymph % (Auto) 28.0 % (13.4-35.0) 08/07/20 05:41 [place] % (Auto) 9.0 % (0.0-7.3) H 08/07/20 05:41 Eos % (Auto) 2.4 % (0.0-4.3) 08/07/20 05:41 Baso % (Auto) 0.4 % (0.0-1.8) 08/07/20 05:41 Lymph # (Auto) 1.3 K/mm3 (1.2-5.4) 08/07/20 05:41 [place] # (Auto) 0.4 K/mm3 (0.0-0.8) 08/07/20 05:41 Eos # (Auto) 0.1 K/mm3 (0.0-0.4) 08/07/20 05:41 Baso # (Auto) 0.0 K/mm3 (0.0-0.1) 08/07/20 05:41 Seg Neutrophils % 60.2 % (40.0-70.0) 08/07/20 05:41 Seg Neutrophils # 2.8 K/mm3 (1.8-7.7) 08/07/20 05:41 Sodium 137 mmol/L (137-145) 08/07/20 05:41 Potassium 4.0 mmol/L (3.6-5.0) 08/07/20 05:41 Chloride 106.3 mmol/L (98-107) 08/07/20 05:41 Carbon Dioxide 24 mmol/L (22-30) 08/07/20 05:41 Anion Gap 11 mmol/L 08/07/20 05:41 BUN 12 mg/dL (7-17) 08/07/20 05:41 Creatinine 0.7 mg/dL (0.6-1.2) 08/07/20 05:41 Estimated GFR > 60 ml/min 08/07/20 05:41 BUN/Creatinine Ratio 17 % 08/07/20 05:41 Glucose 95 mg/dL (65-100) 08/07/20 05:41 Lactic Acid 1.80 mmol/L (0.7-2.0) 08/01/20 19:55 Calcium 9.0 mg/dL (8.4-10.2) 08/07/20 05:41 Total Bilirubin 0.50 mg/dL (0.1-1.2) 08/07/20 05:41 AST 31 units/L (5-40) 08/07/20 05:41 ALT 12 units/L (7-56) 08/07/20 05:41 Alkaline Phosphatase 165 units/L (35-129) H 08/07/20 05:41 Troponin T < 0.010 ng/mL (0.00-0.029) 08/01/20 15:19 Total Protein 6.6 g/dL (6.3-8.2) 08/07/20 05:41 Albumin 1.8 g/dL (3.9-5) L 08/07/20 05:41 Albumin/Globulin Ratio 0.4 % 08/07/20 05:41 Urine Color Judi (Yellow) 08/01/20 19:54 Urine Turbidity Cloudy (Clear) 08/01/20 19:54 Urine pH 5.0 (5.0-7.0) 08/01/20 19:54 Ur Specific [place] 1.018 (1.003-1.030) 08/01/20 19:54 Urine Protein 30 mg/dl mg/dL (Negative) 08/01/20 19:54 Urine Glucose (UA) Neg mg/dL (Negative) 08/01/20 19:54 Urine Ketones Neg mg/dL (Negative) 08/01/20 19:54 Urine Blood Sm (Negative) 08/01/20 19:54 Urine Nitrite Pos (Negative) 08/01/20 19:54 Urine Bilirubin Neg (Negative) 08/01/20 19:54 Urine Urobilinogen 4.0 mg/dL (<2.0) 08/01/20 19:54 Ur Leukocyte Esterase Tr (Negative) 08/01/20 19:54 Urine WBC (Auto) > 182.0 /HPF (0.0-6.0) H 08/01/20 19:54 Urine RBC (Auto) 30.0 /HPF (0.0-6.0) 08/01/20 19:54 Urine Bacteria (Auto) 1+ /HPF (Negative) 08/01/20 19:54 Urine WBC Clumps 2+ /HPF 08/01/20 19:54 Urine Yeast (Budding) 2+ /HPF 08/01/20 19:54 Coronavirus (PCR) Negative (Negative) 08/03/20 Unknown Blood Type B POSITIVE 08/07/20 09:11 Antibody Screen Negative 08/07/20 09:11 Crossmatch See Detail 08/07/20 09:11 [place]jas/IV: Voiding Method External Female Catheter Active Medications - Current Medications Current Medications: Generic Name Dose Route Start Last Admin Trade Name Freq PRN Reason Stop Dose Admin Acetaminophen 650 mg 08/01/20 18:50 08/06/20 11:08 Acetaminophen 325 Mg Tab PO 650 mg Q4H PRN Administration Pain MILD(1-3)/Fever >100.5/BENNETT Hydrocodone Bitart/Acetaminophen 1 each 08/01/20 19:04 Hydrocodone/Acetaminophen 5-325 Mg Tab PO Q4H PRN Pain, Moderate (4-6) Allopurinol 200 mg 08/02/20 10:00 08/08/20 09:21 Allopurinol 100 Mg Tab PO 200 mg QDAY CHARBEL Administration Apixaban 5 mg 08/01/20 22:00 08/08/20 09:21 Apixaban 5 Mg Tab PO 5 mg Q12HR CHARBEL Administration Arformoterol Tartrate 15 mcg 08/01/20 20:00 08/08/20 08:27 Arformoterol 15 Mcg/2 Ml Nebu IH 15 mcg Q12HRT CHARBEL Administration Aspirin 81 mg 08/02/20 10:00 08/08/20 09:21 Aspirin 81 Mg Tab Chew PO 81 mg DAILY CHARBEL Administration Atorvastatin Calcium 20 mg 08/01/20 22:00 08/07/20 21:00 Atorvastatin 20 Mg Tab PO 20 mg QHS CHARBEL Administration Benzonatate 100 mg 08/01/20 22:00 08/08/20 06:26 Benzonatate 100 Mg Cap PO 100 mg Q8HR CHARBEL Administration Budesonide 0.5 mg 08/01/20 20:00 08/08/20 08:27 Budesonide 0.5 Mg/2 Ml Nebu IH 0.5 mg Q12HRT CHARBEL Administration Carvedilol 3.125 mg 08/01/20 22:00 08/08/20 09:22 Carvedilol 3.125 Mg Tab PO 3.125 mg Q12HR CHARBEL Administration Furosemide 40 mg 08/06/20 20:00 08/07/20 20:56 Furosemide 40 Mg/4 Ml Inj IV 40 mg Q24H CHARBEL Administration Ceftriaxone Sodium 2 gm in 100 mls @ 200 mls/hr 08/06/20 10:00 08/08/20 09:23 Rocephin/Ns 2 Gm/100 Ml IV 08/08/20 10:59 200 mls/hr Q24HR CHARBEL Administration Protocol Magnesium Hydroxide 30 ml 08/04/20 20:23 08/04/20 21:41 Magnesium Hydroxide (Mom) Oral Liqd Udc PO 30 ml Q4H PRN Administration Constipation Ondansetron HCl 4 mg 08/01/20 18:50 Ondansetron 4 Mg/2 Ml Inj IV Q8H PRN Nausea And Vomiting Oxybutynin Chloride 5 mg 08/01/20 20:00 08/08/20 08:53 Oxybutynin 5 Mg Tab PO 5 mg TID CHARBEL Administration Pantoprazole Sodium 20 mg 08/02/20 10:00 08/08/20 09:21 Pantoprazole 20 Mg Tab PO 20 mg QDAY CHARBEL Administration Ranolazine 1,000 mg 08/01/20 22:00 08/08/20 09:20 Ranolazine Er 500 Mg Tab 12hr PO 1,000 mg BID CHARBEL Administration Sodium Chloride 10 ml 08/01/20 22:00 08/08/20 09:23 Sodium Chloride 0.9% 10 Ml Flush Syringe IV 10 ml BID CHARBEL Administration Sodium Chloride 10 ml 08/01/20 18:50 Sodium Chloride 0.9% 10 Ml Flush Syringe IV PRN PRN LINE FLUSH Nutrition/Malnutrition Assess - Dietary Evaluation Nutrition/Malnutrition Findings: Nutrition Notes Start: 08/02/20 14:30 Freq: Status: Active Protocol: Document 08/07/20 10:54 (Rec: 08/07/20 10:58 [id number]) Nutrition Notes Need for Assessment generated from: MD Order Initial or Follow up Reassessment Current Diagnosis COPD,Coronary Artery Disease, Hypertension,Hyperlipidemia Other Pertinent Diagnosis dementia, GERD Current Diet Cardiac Labs/Tests Reviewed Pertinent Medications Reviewed Height 5 ft 4 in Weight 67.7 kg [place] Body Weight (kg) 54.54 BMI 25.6 Weight change and time frame wt gain noted Weight Status Appropriate Subjective/Other Information MD order for ONS. Unsure why ONS continues to be ordered as pt is already receiving them. Pt has no prefrence to ONS. Pt continues to eat 50% of meals and 100% of ONS. Percent of energy/protein needs met: 100%/90% Burn Absent Trauma Absent Current % PO Fair (50-74%) Minimum of two criteria No physical signs of malnutrition #1 Nutrition Diagnosis Increased nutrient needs ( specify in comment below) Diagnosis Progress(for reassessment Continues documentation) Is patient on ventilator? No Is Patient Ambulatory and/or Out of Bed No REE-([facility]-confined to bed) 1329.840 Calculation Used for Recommendations [facility] Additional Notes Protein: (1.25-1.5g/kg) 83- 100g Fluid: 1 ml/kcal or per MD Nutrition Intervention Change Diet Order: Continue Add Supplement/Snack (indicate name/kcal Ensure HP TID /protein ) Provides kCal: 480 Provides Protein (gm) 48 Goal #1 Continue to meet at least 75% of protein and energy needs via PO and ONS intakes Goal #2 Wound healing Anticipated Discharge Needs: Cardiac with ONS PRN Follow-Up By: 08/10/20 Additional Comments FU for stable intakes and ONS tolerance
[2020-08-08] MEDS: FUROSEMIDE 40 MG/4 ML INJ IV SCH (23:09)
[2020-08-09] MEDS: BENZONATATE 100 MG CAP PO SCH ×2 (06:45→13:45)
[2020-08-09] MEDS: ARFORMOTEROL 15 MCG/2 ML NEBU IH SCH (08:18)
[2020-08-09] MEDS: BUDESONIDE 0.5 MG/2 ML NEBU IH SCH (08:18)
[2020-08-09] MEDS: PANTOPRAZOLE 20 MG TAB PO SCH (10:58)
[2020-08-09] MEDS: ASPIRIN 81 MG TAB CHEW PO SCH (10:58)
[2020-08-09] MEDS: OXYBUTYNIN 5 MG TAB PO SCH ×2 (10:58→13:45)
[2020-08-09] MEDS: allopurinoL 100 MG TAB PO SCH (10:58)
[2020-08-09] MEDS: RANOLAZINE ER 500 MG TAB 12HR PO SCH (10:58)
[2020-08-09] MEDS: APIXABAN 5 MG TAB PO SCH (10:59)
[2020-08-09] MEDS: carvediloL 3.125 MG TAB PO SCH (10:59)
[2020-08-09 11:51] LABS: Hematocrit 25.5 % (30.3-42.9); Hemoglobin 8.3 gm/dl (10.1-14.3)
--- NOTE | 2020-08-09 13:09 | Discharge Summary ---
Providers - Providers Date of Admission: 08/01/20 18:50 Date of discharge: 08/09/20 Attending physician: ASAD CISNEROS 08/02/20 08:53 Occupational Therapy Evaluate and Treat [CONS] Routine Comment: Reason For Exam: Frequent falls/evaluate and treat/DC needs Physical Therapy Evaluation and Treat [CONS] Routine Comment: Reason For Exam: Frequent falls/evaluate and treat/DC needs Primary care physician: WEIGHT GUESSER Hospitalization Reason for admission: Acute metabolic encephalopathy Condition: Stable Pertinent studies: Venous Doppler right lower extremity; negative DVT x-ray right foot; no fracture subluxation edema severe degenerative changes involving MT P joint X-ray right knee; no fracture no subluxation CT head without contrast no focal mass hemorrhage hydrocephalus or no acute acute no acute infarct infarct Hospital course: 84 YO Female with HTN, GERD, HLD, COPD, Atrial Fib on therapeutic anticoagulation with Eliquis, Pulmonary HTN, CAD S/P CABG, OA, Vascular Dementia, Cerebral Atherosclerosis presents to ED for evaluation. Patient has diminished cognition and is unable to provide detailed history. Patient granddaughter is at bedside during exam and interview and provide detailed history. The granddaughter reports "she has been following and has gotten weak". Patient currently reports increased generalized weakness resulting in multiple falls over the past 1 week with worsening symptoms over the past 4 days. Patient lost her balance and fell to the floor from a standing position today and landed on her right knee. Patient transported to [facility] via private vehicle for further care and evaluation of the aforementioned symptoms. The patient was seen and evaluated in the emergency department. All lab and imaging studies reviewed. The patient was found to to be hypotensive with a systolic blood pressure in the 80s. The patient was found to have systemic inflammatory response syndrome suspected secondary to urinary tract infection, metabolic encephalopathy, volume depletion, malnutrition. Patient placed in observation status and admitted to medical floor and initiated on IV antibiotic therapy. No reports of fever, chills, chest pain, palpitation, productive cough, skin rash, recent ill contacts, or known exposure to COVID-19. Patient had extensive evaluation,which was negative. Patient's symptoms significantly improved, today patient is comfortable confused due to basic dementia hemodynamically stable, Patient is being discharged and transferred to SNF today. Stable at discharge Discharge diagnoses: --Acute metabolic encephalopathy; Current Visit: Yes Status: Acute Multifactorial, advanced age dementia, dehydration, A. fib UTI. Monitor Accu-Cheks, treat the underlying cause CT head, no acute abnormality --History of recurrent falls; right knee pain Current Visit: Yes Status: Acute Fall precautions, PT OT Tests done so far; Venous Doppler right lower extremity; negative DVT x-ray right foot; no fracture subluxation edema severe degenerative changes involving MT P joint X-ray right knee; no fracture no subluxation CT head without contrast no focal mass hemorrhage hydrocephalus or no acute acute no acute infarct infarct -- Systemic inflammatory response syndrome Current Visit: Yes Status: Acute Cultures, empiric antibiotics, supportive care --Volume depletion/dehydration Current Visit: Yes Status: Acute IV fluid resuscitation therapy, monitor urine output every shift. --UTI (urinary tract infection) Current Visit: Yes Status: Acute Cultures negative to date Received empiric antibiotic Rocephin --Severe protein calorie malnutrition Current Visit: Yes Status: Acute Hypoalbuminemia , albumin 2.2 dietary supplementation, Supportive care, nutrition consult --Atrial fibrillation rate controlled Current Visit: Yes Status: Acute Continue therapeutic anticoagulation with Eliquis, continue rate control, supportive care. --DVT prophylaxis Current Visit: Yes Status: Acute. Continue Eliquis, SCD --Advance care planning/full code Current Visit: Yes Status: Acute Plan of care reviewed with the patient and her nurse DC planning per case management Stable at discharge Disposition: [address] [place] [id number] Final Discharge Diagnosis (Prints w/discharge instructions): Acute metabolic encephalopathy. Urinary tract infection. Severe protein calorie malnutrition. Atrial fibrillation rate controlled. SIRS. Dehydration. Recurrent falls Time spent for discharge: 35 min Core Measure Documentation - Palliative Care Palliative Care/ Comfort Measures: Not Applicable - Core Measures Any of the following diagnoses?: none Exam - Constitutional Vitals: Temp Pulse Resp BP Pulse Ox 98.1 F 78 18 129/55 98 08/09/20 05:21 08/09/20 08:00 08/09/20 08:00 08/09/20 05:21 08/09/20 05:21 General appearance: Present: no acute distress, well-nourished - EENT Eyes: Present: PERRL, EOM intact - Neck Neck: Present: supple, normal ROM - Respiratory Respiratory effort: normal Respiratory: bilateral: diminished, negative: rales, rhonchi, wheezing - Cardiovascular Rhythm: regular Heart Sounds: Present: S1 & S2 - Extremities Extremities: no ischemia, No edema - Abdominal General gastrointestinal: Present: soft, non-tender, non-distended, normal bowel sounds - Integumentary Integumentary: Present: clear, warm - Musculoskeletal Musculoskeletal: strength equal bilaterally, generalized weakness - Psychiatric Psychiatric: appropriate mood/affect, cooperative - Neurologic Neurologic: moves all extremities (Residual weakness) Plan Activity: advance as tolerated, fall precautions Diet: other (Cardiac diet) Special Instructions: physical therapy, occupational therapy Additional Instructions: Fall precautions. If you have worsening symptoms, contact MD or go to emergency room as needed Follow up with: PRIMARY CARE,MD [Primary Care Provider] - 3-5 Days
[2020-08-09] MEDS: MAGNESIUM HYDROXIDE (MOM) ORAL LIQD UDC PO PRN (13:47)
[2020-08-09 17:21] VITALS: BP 123/50
== END 2020-08-09 18:00 ==
LOC: ED 12:29 → 3A 18:50 → OBSVTOIN 08-03 13:00 → INTOOBSV 08-03 13:00 → 3A 08-03 15:19
PROVIDERS: ADMIT Internal Medicine; ATTEND Internal Medicine
DX: G93.41 Metabolic encephalopathy (principal); Z20.822 Contact with and (suspected) exposure to COVID-19; R65.10 Systemic inflammatory response syndrome (SIRS) of non-infectious origin without acute organ dysfunction; A41.9 Sepsis, unspecified organism; E86.9 Volume depletion, unspecified; I10 Essential (primary) hypertension; I48.91 Unspecified atrial fibrillation; N39.0 Urinary tract infection, site not specified; E46 Unspecified protein-calorie malnutrition; D64.9 Anemia, unspecified; K21.9 Gastro-esophageal reflux disease without esophagitis; J44.9 Chronic obstructive pulmonary disease, unspecified; I25.10 Atherosclerotic heart disease of native coronary artery without angina pectoris; M19.90 Unspecified osteoarthritis, unspecified site; I67.2 Cerebral atherosclerosis; M62.81 Muscle weakness (generalized); E87.2 Acidosis; I95.9 Hypotension, unspecified; M25.561 Pain in right knee; F01.50 Vascular dementia, unspecified severity, without behavioral disturbance, psychotic disturbance, mood disturbance, and anxiety; Z68.27 Body mass index [BMI] 27.0-27.9, adult; Z95.1 Presence of aortocoronary bypass graft; Z79.82 Long term (current) use of aspirin; Z90.49 Acquired absence of other specified parts of digestive tract; Z90.710 Acquired absence of both cervix and uterus; Z91.81 History of falling
CPT/HCPCS: 36415; 70450; 71045; 73564; 73630; 80048; 80053; 81001; 82140; 84484; 85014; 85018; 85025; 86850; 86900; 86901; 86920; 87040; 87086; 93005; 93971; 94640; 96361; 96365; 96366; 96367; 96375; 96376; 97110; 97162; 97165; 97530; 99291; A9270; G0378; J0692; J0696; J1940; J7030; J7040; P9016; U0003

== ENCOUNTER 2020-11-18 18:56 | Inpatient (IN) | payer MEDICARE ==
[2020-11-18] MEDS ORDERED: NITROGLYCERIN 0.4 MG TAB SUBL SL PRN (20:05)
[2020-11-18] MEDS ORDERED: ACETAMINOPHEN 325 MG TAB PO ONE (20:05)
--- NOTE | 2020-11-18 20:17 | Emergency Department Report ---
ED General Adult HPI - General Chief complaint: Extremity Injury, Lower Stated complaint: BILATERAL LEG EDEMA PUI?: Yes Time Seen by Provider: 11/18/20 19:46 Source: patient, family, EMS ( EMS documentation not available at time of chart dictation ), RN notes reviewed, old records reviewed Mode of arrival: Ambulatory Limitations: Physical Limitation, Other (Patient hard of hearing. Patient is a poor historian) - History of Present Illness Initial comments: The patient was evaluated in the emergency department for symptoms described in the history of present illness. He/she was evaluated in the context of the global COVID-19 pandemic, which necessitated consideration that the patient might be at risk for infection with the virus that causes COVID-19. Institutional protocols and algorithms that pertain to the evaluation of patients at risk for COVID-19 are in a state of rapid change based on information released by regulatory bodies including the CDC and federal and state organizations. These policies and algorithms were followed during the patient's care in the emergency department. Please note that these policies, procedures and recommendations changed on a rapid basis. Cardiology: Dr. Oleksandr Garcias Past medical history: A. fib, previously in sinus rhythm, normal TSH, on Eliquis, CAD, triple bypass, chronic lung disease, hypertension, diabetes, history of being on Cardizem. History obtained by speaking to patient's daughter, Ms. Ying; [phone] The patient is an 85-year-old female. She is sent to the emergency room by family for evaluation of painful lower extremity swelling. The patient herself states that her legs are swollen. She has intermittent central and right-sided chest pain. The patient denies headache, neck pain and abdominal pain. Apparently, she also has additional history of GERD, hyperlipidemia, COPD, pulmonary hypertension and vascular dementia. Her family states that she has no fever, chills, loss of taste and smell. There is no trauma. Family tells me that she is COVID-19 vaccinated. They report compliance with medication and systemic anticoagulation. Patient is a poor historian and demented, and has difficulty describing the qualitative nature of symptoms, exacerbating factors, relieving factors or aggravating factors. -: Gradual, days(s) Location: chest, left, right, lower extremity Severity scale (0 -10): 7 Quality: aching Consistency: other (Patient states her pain is constant) Improves with: rest Worsens with: movement - Related Data Previous Rx's Medication Instructions Recorded Last Taken Type Aspirin [Aspirin BABY CHEW TAB] 81 mg PO DAILY #100 tab.chew 04/28/18 08/01/20 Rx Apixaban [Eliquis] 5 mg PO Q12HR #60 tablet 04/29/20 08/01/20 Rx AtorvaSTATin [Lipitor] 20 mg PO QHS #30 tablet 04/29/20 08/01/20 Rx Oxybutynin [Ditropan] 5 mg PO TID #90 tablet 04/29/20 08/01/20 Rx Pantoprazole [Protonix TAB] 20 mg PO QDAY #30 tablet.dr 04/29/20 08/01/20 Rx Ranolazine ER [Ranexa ER] 1,000 mg PO BID #60 tablet 04/29/20 08/01/20 Rx allopurinoL [Zyloprim] 200 mg PO QDAY #30 tablet 04/29/20 08/01/20 Rx carvediloL [Coreg] 3.125 mg PO Q12H #60 tablet 04/29/20 08/01/20 Rx Acetaminophen [Acetaminophen TAB] 650 mg PO Q4H PRN tablet 08/09/20 Unknown Rx Arformoterol Nebu [Brovana Nebu] 15 mcg IH Q12HRT ml 08/09/20 Unknown Rx Benzonatate [Tessalon Perles] 100 mg PO Q8HR capsule 08/09/20 Unknown Rx Budesonide [Pulmicort Respules] 0.5 mg IH Q12HRT nebu 08/09/20 Unknown Rx Allergies Allergy/AdvReac Type Severity Reaction Status Date / Time Penicillins Allergy Severe EVRYTHING Verified 08/02/20 01:06 SWELLS Sulfa (Sulfonamide Allergy Mild Itching Verified 08/02/20 01:06 Antibiotics) azithromycin [From Zithromax] Allergy Itching Verified 08/02/20 01:06 iv dye Allergy Unknown Uncoded 06/10/20 09:21 ED Review of Systems ROS: Stated complaint: BILATERAL LEG EDEMA Other details as noted in HPI Comment: Unobtainable due to pts medical conditions (Patient is demented. Review of systems from patient and family) Constitutional: malaise, weakness, other (Denies loss of taste and smell) Eyes: denies: eye discharge ENT: denies: epistaxis Respiratory: cough, shortness of breath Cardiovascular: chest pain, edema Gastrointestinal: denies: vomiting Musculoskeletal: arthralgia, myalgia Neurological: weakness, confusion (Chronic confusion) ED Past Medical Hx - Past Medical History Hx Hypertension: Yes Hx Heart Attack/AMI: Yes Hx Congestive Heart Failure: No Hx Deep Vein Thrombosis: No Hx Pulmonary Embolism: No Hx Arthritis: Yes Hx Asthma: No Hx COPD: Yes Hx Tuberculosis: No Hx HIV: No Additional medical history: angina, gout. cad - Surgical History Hx Coronary Stent: Yes Hx Open Heart Surgery: Yes Hx Pacemaker: No Hx Internal Defibrillator: No Hx Cholecystectomy: Yes Hx Appendectomy: No Hx Breast Surgery: No Additional Surgical History: hysterectomy. CABG. - Social History Smoking Status: Never Smoker Substance Use Type: None - Medications Home Medications: Home Medications Medication Instructions Recorded Confirmed Last Taken Type Aspirin [Aspirin BABY CHEW TAB] 81 mg PO DAILY #100 tab.chew 04/28/18 08/02/20 08/01/20 Rx Apixaban [Eliquis] 5 mg PO Q12HR #60 tablet 04/29/20 08/02/20 08/01/20 Rx AtorvaSTATin [Lipitor] 20 mg PO QHS #30 tablet 04/29/20 08/02/20 08/01/20 Rx Oxybutynin [Ditropan] 5 mg PO TID #90 tablet 04/29/20 08/02/20 08/01/20 Rx Pantoprazole [Protonix TAB] 20 mg PO QDAY #30 tablet. 04/29/20 08/02/20 08/01/20 Rx Ranolazine ER [Ranexa ER] 1,000 mg PO BID #60 tablet 04/29/20 08/02/20 08/01/20 Rx allopurinoL [Zyloprim] 200 mg PO QDAY #30 tablet 04/29/20 08/02/20 08/01/20 Rx carvediloL [Coreg] 3.125 mg PO Q12H #60 tablet 04/29/20 08/02/20 08/01/20 Rx Acetaminophen [Acetaminophen TAB] 650 mg PO Q4H PRN tablet 08/09/20 Unknown Rx Arformoterol Nebu [Brovana Nebu] 15 mcg IH Q12HRT ml 08/09/20 Unknown Rx Benzonatate [Tessalon Perles] 100 mg PO Q8HR capsule 08/09/20 Unknown Rx Budesonide [Pulmicort Respules] 0.5 mg IH Q12HRT nebu 08/09/20 Unknown Rx ED Physical Exam - General Limitations: Other (Patient is a poor historian. The patient is hard of hearing.) General appearance: alert - Head Head exam: Present: atraumatic, normocephalic - Eye Eye exam: Present: normal appearance, EOMI. Absent: nystagmus - ENT ENT exam: Present: normal exam, normal orophraynx, mucous membranes moist, normal external ear exam - Neck Neck exam: Present: normal inspection, full ROM. Absent: tenderness, meningismus - Respiratory Respiratory exam: Present: wheezes, rales, rhonchi. Absent: stridor - Cardiovascular Cardiovascular Exam: Present: regular rate, irregular rhythm, normal heart sounds. Absent: bradycardia, tachycardia, systolic murmur, diastolic murmur, rubs, gallop - GI/Abdominal GI/Abdominal exam: Present: soft. Absent: distended, tenderness, guarding, rebound, rigid, pulsatile mass - Extremities Exam Extremities exam: Present: normal inspection, full ROM, pedal edema (3-4+ pitting edema in the bilateral lower extremities), other (2+ pulses noted in the bilateral upper and lower extremities. There is no longer any tenderness. The pelvis is stable. Muscular compartments soft. There is no palpable cord.) - Back Exam Back exam: Present: normal inspection. Absent: tenderness, CVA tenderness (R), CVA tenderness (L), paraspinal tenderness, vertebral tenderness - Neurological Exam Neurological exam: Present: alert (The patient is alert to name. The patient follows commands.), other (2+ pulses noted in the bilateral upper and lower extremities. There is no palpable cord. negative Homans sign. Muscular compartments are soft. The pelvis is stable.) - Psychiatric Psychiatric exam: Present: anxious - Skin Skin exam: Present: warm, dry, intact, normal color. Absent: rash ED Course Vital Signs 11/18/20 19:22 Temperature 98.7 F Pulse Rate 77 Respiratory 17 Rate Blood Pressure 118/64 [Right] O2 Sat by Pulse 98 Oximetry - Reevaluation(s) Reevaluation #1: 11/18/20 21:54 Differential diagnosis, including but not limited to: Congestive heart failure, DVT, COPD, pneumonia, GERD, gastritis, hiatal hernia, costochondritis, acute coronary syndrome, COVID-19 Assessment and plan: 85-year-old female, who is currently on Eliquis and systemically anticoagulated, with multiple medical issues, presenting today with a complaint of lower extremity swelling, chest pain which is nonspecific, and she is COVID-19 vaccinated. She has crackles and rales, and very impressive 3-4+ lower extremity edema. She is not significantly hypoxic at this time, steroids not indicated. Given advanced age, multiple medical issues and comorbidities, we will obtain bilateral lower extremity DVT study, cover with albuterol, Atrovent, steroids, antibiotics, Lasix and aspirin. Patient moderate risk for major adverse cardiac event as per heart score. Recommend admission to the medical service for supportive care, medical optimization, and further inpatient care. I discussed this with the patient's family. They are agreeable to this plan of care. We will admit the patient to the medical service once initial diagnostics have resulted. Given that patient is anticoagulated, and has clinical evidence of paroxysmal A. fib, DVT and pulmonary embolism are unlikely. 11/18/20 21:56 11/18/20 22:18 Dr Adams to admit to [facility] labs appreciated ED Medical Decision Making - Lab Data Result diagrams: 11/18/20 20:15 11/18/20 20:15 Vital Signs 11/18/20 19:22 Temperature 98.7 F Pulse Rate 77 Respiratory 17 Rate Blood Pressure 118/64 [Right] O2 Sat by Pulse 98 Oximetry Lab Results 11/18/20 11/18/20 11/18/20 Range/Units 20:15 20:15 20:15 WBC 4.4 L (4.5-11.0) K/mm3 RBC 3.11 L (3.65-5.03) M/mm3 Hgb 9.2 L (10.1-14.3) gm/dl Hct 27.6 L (30.3-42.9) % MCV 89 (79-97) fl MCH 30 (28-32) pg MCHC 33 (30-34) % RDW 23.2 H (13.2-15.2) % Plt Count 162 (140-440) K/mm3 Lymph % (Auto) 30.5 (13.4-35.0) % Bee % (Auto) 8.3 H (0.0-7.3) % Eos % (Auto) 1.5 (0.0-4.3) % Baso % (Auto) 0.6 (0.0-1.8) % Lymph # (Auto) 1.3 (1.2-5.4) K/mm3 Bee # (Auto) 0.4 (0.0-0.8) K/mm3 Eos # (Auto) 0.1 (0.0-0.4) K/mm3 Baso # (Auto) 0.0 (0.0-0.1) K/mm3 Seg Neutrophils % 59.1 (40.0-70.0) % Seg Neutrophils # 2.6 (1.8-7.7) K/mm3 PT 22.1 H (12.2-14.9) Sec. INR 1.89 H (0.87-1.13) APTT 46.0 H (24.2-36.6) Sec. Magnesium 1.60 L (1.7-2.3) mg/dL Troponin T < 0.010 (0.00-0.029) ng/mL NT-Pro-B Natriuret Pep (0-900) pg/mL TSH (0.270-4.200) mlU/mL 11/18/20 11/18/20 Range/Units 20:15 20:15 WBC (4.5-11.0) K/mm3 RBC (3.65-5.03) M/mm3 Hgb (10.1-14.3) gm/dl Hct (30.3-42.9) % MCV (79-97) fl MCH (28-32) pg MCHC (30-34) % RDW (13.2-15.2) % Plt Count (140-440) K/mm3 Lymph % (Auto) (13.4-35.0) % Bee % (Auto) (0.0-7.3) % Eos % (Auto) (0.0-4.3) % Baso % (Auto) (0.0-1.8) % Lymph # (Auto) (1.2-5.4) K/mm3 Bee # (Auto) (0.0-0.8) K/mm3 Eos # (Auto) (0.0-0.4) K/mm3 Baso # (Auto) (0.0-0.1) K/mm3 Seg Neutrophils % (40.0-70.0) % Seg Neutrophils # (1.8-7.7) K/mm3 PT (12.2-14.9) Sec. INR (0.87-1.13) APTT (24.2-36.6) Sec. Magnesium (1.7-2.3) mg/dL Troponin T (0.00-0.029) ng/mL NT-Pro-B Natriuret Pep 140.9 (0-900) pg/mL TSH 2.090 (0.270-4.200) mlU/mL Lab Results 11/18/20 11/18/20 11/18/20 Range/Units 20:15 20:15 20:15 WBC 4.4 L (4.5-11.0) K/mm3 RBC 3.11 L (3.65-5.03) M/mm3 Hgb 9.2 L (10.1-14.3) gm/dl Hct 27.6 L (30.3-42.9) % MCV 89 (79-97) fl MCH 30 (28-32) pg MCHC 33 (30-34) % RDW 23.2 H (13.2-15.2) % Plt Count 162 (140-440) K/mm3 Lymph % (Auto) 30.5 (13.4-35.0) % Bee % (Auto) 8.3 H (0.0-7.3) % Eos % (Auto) 1.5 (0.0-4.3) % Baso % (Auto) 0.6 (0.0-1.8) % Lymph # (Auto) 1.3 (1.2-5.4) K/mm3 Bee # (Auto) 0.4 (0.0-0.8) K/mm3 Eos # (Auto) 0.1 (0.0-0.4) K/mm3 Baso # (Auto) 0.0 (0.0-0.1) K/mm3 Seg Neutrophils % 59.1 (40.0-70.0) % Seg Neutrophils # 2.6 (1.8-7.7) K/mm3 PT 22.1 H (12.2-14.9) Sec. INR 1.89 H (0.87-1.13) APTT 46.0 H (24.2-36.6) Sec. Sodium (137-145) mmol/L Potassium (3.6-5.0) mmol/L Chloride (98-107) mmol/L Carbon Dioxide (22-30) mmol/L Anion Gap mmol/L BUN (7-17) mg/dL Creatinine (0.6-1.2) mg/dL Estimated GFR ml/min BUN/Creatinine Ratio % Glucose (65-100) mg/dL Calcium (8.4-10.2) mg/dL Magnesium 1.60 L (1.7-2.3) mg/dL Total Creatine Kinase (30-135) units/L Troponin T < 0.010 (0.00-0.029) ng/mL NT-Pro-B Natriuret Pep (0-900) pg/mL TSH (0.270-4.200) mlU/mL 11/18/20 11/18/20 11/18/20 Range/Units 20:15 20:15 20:15 WBC (4.5-11.0) K/mm3 RBC (3.65-5.03) M/mm3 Hgb (10.1-14.3) gm/dl Hct (30.3-42.9) % MCV (79-97) fl MCH (28-32) pg MCHC (30-34) % RDW (13.2-15.2) % Plt Count (140-440) K/mm3 Lymph % (Auto) (13.4-35.0) % Bee % (Auto) (0.0-7.3) % Eos % (Auto) (0.0-4.3) % Baso % (Auto) (0.0-1.8) % Lymph # (Auto) (1.2-5.4) K/mm3 Bee # (Auto) (0.0-0.8) K/mm3 Eos # (Auto) (0.0-0.4) K/mm3 Baso # (Auto) (0.0-0.1) K/mm3 Seg Neutrophils % (40.0-70.0) % Seg Neutrophils # (1.8-7.7) K/mm3 PT (12.2-14.9) Sec. INR (0.87-1.13) APTT (24.2-36.6) Sec. Sodium 135 L (137-145) mmol/L Potassium 3.7 (3.6-5.0) mmol/L Chloride 106.7 (98-107) mmol/L Carbon Dioxide 21 L (22-30) mmol/L Anion Gap 11 mmol/L BUN 11 (7-17) mg/dL Creatinine 0.6 (0.6-1.2) mg/dL Estimated GFR > 60 ml/min BUN/Creatinine Ratio 18 % Glucose 105 H (65-100) mg/dL Calcium 8.3 L (8.4-10.2) mg/dL Magnesium 1.50 L (1.7-2.3) mg/dL Total Creatine Kinase 29 L (30-135) units/L Troponin T (0.00-0.029) ng/mL NT-Pro-B Natriuret Pep 140.9 147.4 (0-900) pg/mL TSH 2.090 (0.270-4.200) mlU/mL - EKG Data -: EKG Interpreted by Vt - EKG Data 11/18/20 21:52 The EKG is interpreted at 20: 28 Sinus rhythm, rate 78 bpm. Left axis deviation, left anterior fascicular block, T wave abnormalities, QTC 473 ms. Motion artifact. This is an abnormal EKG. This is not a STEMI. Compared to prior EKG from 08/01/2020 T wave inversions still present, although less prominent. Left axis deviation is old. Patient is in sinus rhythm when compared to prior EKG. - Radiology Data Radiology results: pending, report reviewed, image reviewed CHEST 1 VIEW INDICATION / CLINICAL INFORMATION: Dyspnea. COMPARISON: 08/01/2020 FINDINGS: SUPPORT DEVICES: None. HEART / MEDIASTINUM: Sternotomy. Normal cardiac size. LUNGS / PLEURA: Patient has underlying chronic interstitial lung disease. However, there does appear to be some mild superimposed pulmonary opacities bilaterally worrisome for pneumonia. No pleural effusion. No pneumothorax. ADDITIONAL FINDINGS: No significant additional findings. IMPRESSION: 1. Suspect subtle bilateral pulmonary opacities worrisome for viral pneumonia. Please correlate with Covid status. 2. Chronic interstitial lung disease. Signer Name: Kay Barry MD Signed: 11/18/2020 7:42 PM Workstation Name: [id number] Critical care attestation.: If time is entered above; I have spent that time in minutes in the direct care of this critically ill patient, excluding procedure time. ED Disposition Clinical Impression: COPD exacerbation, Chest pain, Bilateral lower extremity pain, Swelling of both lower extremities, Hypomagnesemia, Anticoagulant long-term use Disposition: ADMITTED INPATIENT Is pt being admited?: Yes Does the pt Need Aspirin: No Condition: Stable Instructions: Nonspecific Chest Pain, Adult, Chronic Bronchitis (ED) Heart Score - HEART Score History: Slightly suspicious EKG: Non-specific Age: > 65 Risk factors: > 3 risk factors or hx of atherosclerotic disease Troponin: < normal limit HEART Score: 5 - EKG Read Time Time EKG Completed: 20:28 EKG Read Time: 20:28 - Critical Actions Critical Actions: 4-6 pts:12-16.6% risk of adverse cardiac event. Should be admitted
[2020-11-18 20:45] LABS: Basophils % (Auto) 0.6 % (0.0-1.8); Eosinophils # (Auto) 0.1 K/mm3 (0.0-0.4); Eosinophils % (Auto) 1.5 % (0.0-4.3); Hematocrit 27.6 % (30.3-42.9); Hemoglobin 9.2 gm/dl (10.1-14.3); Lymphocytes # (Auto) 1.3 K/mm3 (1.2-5.4); Lymphocytes % (Auto) 30.5 % (13.4-35.0); Mean Corpuscular HGB Conc 33 % (30-34); Mean Corpuscular Volume 89 fl (79-97); Monocytes # (Auto) 0.4 K/mm3 (0.0-0.8); Monocytes % (Auto) 8.3 % (0.0-7.3); Platelet Count 162 K/mm3 (140-440); Red Blood Count 3.11 M/mm3 (3.65-5.03); Red Cell Distribution Width 23.2 % (13.2-15.2)
--- NOTE | 2020-11-18 20:47 | XRay Report ---
CHEST 1 VIEW INDICATION / CLINICAL INFORMATION: Dyspnea. COMPARISON: 08/01/2020 FINDINGS: SUPPORT DEVICES: None. HEART / MEDIASTINUM: Sternotomy. Normal cardiac size. LUNGS / PLEURA: Patient has underlying chronic interstitial lung disease. However, there does appear to be some mild superimposed pulmonary opacities bilaterally worrisome for pneumonia. No pleural effu kaleigh. No pneumothorax. ADDITIONAL FINDINGS: No significant additional findings. IMPRESSION: 1. Suspect subtle bilateral pulmonary opacities worrisome for viral pneumonia. Please correlate with Covid status. 2. Chronic interstitial lung disease. Signer Name: Kay Barry MD Signed: 11/18/2020 8:42 PM Workstation Name: [id number]
[2020-11-18 20:55] LABS: INR 1.89 (0.87-1.13)
[2020-11-18] MEDS ORDERED: MAGNESIUM SULFATE 2 GM/50 ML BAG IV ONE (21:45)
[2020-11-18] MEDS ORDERED: FUROSEMIDE 40 MG/4 ML INJ IV ONE (21:45)
[2020-11-18] MEDS ORDERED: ALBUTEROL 2.5 MG/3 ML NEBU IH ONE (21:49)
[2020-11-18] MEDS ORDERED: methylPREDNISolone Sod Succinate 125 MG/2 ML INJ IV ONE (21:49)
[2020-11-18] MEDS ORDERED: IPRATROPIUM 0.02% NEBU 2.5 ML IH ONE (21:50)
[2020-11-18] MEDS ORDERED: ASPIRIN 81 MG TAB CHEW PO ONE (21:58)
[2020-11-18] MEDS ORDERED: PANTOPRAZOLE 40 MG INJ IV ONE (21:58)
[2020-11-18 22:08] LABS: Blood Urea Nitrogen 11 mg/dL (7-17); Calcium 8.3 mg/dL (8.4-10.2); Hemolysis Index 8
[2020-11-18 22:11] LABS: BUN/Creatinine Ratio 18
[2020-11-18] MEDS ORDERED: ALBUTEROL 2.5 MG/3 ML NEBU IH PRN (23:19)
[2020-11-18] MEDS ORDERED: ONDANSETRON 4 MG/2 ML INJ IV PRN (23:19)
[2020-11-18] MEDS ORDERED: HYDROmorphone 1 MG/1 ML INJ IV PRN (23:19)
[2020-11-18] MEDS ORDERED: oxyCODONE /ACETAMINOPHEN 5-325MG TAB PO PRN (23:19)
[2020-11-18] MEDS ORDERED: ACETAMINOPHEN 325 MG TAB PO PRN (23:19)
--- NOTE | 2020-11-18 23:32 | History and Physical Report ---
History of Present Illness Date of examination: 11/18/20 Date of admission: 11/18/20 Chief complaint: Bilateral lower extremity swelling Shortness of breath and coughing History of present illness: 85 years old female with past medical history of coronary artery disease, GERD, hyperlipidemia, COPD, recurrent UTI, A. fib on Eliquis, pulmonary hypertension was brought to the emergency room because of painful bilateral lower extremity swelling for last couple of days. Patient is also complaining of intermittent central and right-sided chest pain. Patient denies any abdominal neck pain patient has no fever no chills no loss of taste and smell. Patient is COVID-19 vaccinated In the emergency room patient is found to have acute CHF exacerbation. Chest x- ray shows suspected septal bilateral pulmonary opacities worrisome for viral pneumonia. Please correlate with Covid status. Chronic interstitial lung disease We are going to admit the patient with a diagnosis of CHF exacerbation, COPD exacerbation and questionable pneumonia. Med rec is done. Advance discharge process is initiated Past History Past Medical History: atrial fib, arthritis, CAD, COPD, GERD, hypertension, hyperlipidemia, other (Dementia) Past Surgical History: cholecystectomy, CABG, hysterectomy Medications and Allergies Allergies Allergy/AdvReac Type Severity Reaction Status Date / Time Penicillins Allergy Severe EVRYTHING Verified 08/02/20 01:06 SWELLS Sulfa (Sulfonamide Allergy Mild Itching Verified 08/02/20 01:06 Antibiotics) azithromycin [From Zithromax] Allergy Itching Verified 08/02/20 01:06 iv dye Allergy Unknown Uncoded 06/10/20 09:21 Home Medications Medication Instructions Recorded Confirmed Last Taken Type Aspirin [Aspirin BABY CHEW TAB] 81 mg PO DAILY #100 tab.chew 04/28/18 08/02/20 08/01/20 Rx Apixaban [Eliquis] 5 mg PO Q12HR #60 tablet 04/29/20 08/02/20 08/01/20 Rx AtorvaSTATin [Lipitor] 20 mg PO QHS #30 tablet 04/29/20 08/02/20 08/01/20 Rx Oxybutynin [Ditropan] 5 mg PO TID #90 tablet 04/29/20 08/02/20 08/01/20 Rx Pantoprazole [Protonix TAB] 20 mg PO QDAY #30 tablet. 04/29/20 08/02/20 08/01/20 Rx Ranolazine ER [Ranexa ER] 1,000 mg PO BID #60 tablet 04/29/20 08/02/20 08/01/20 Rx allopurinoL [Zyloprim] 200 mg PO QDAY #30 tablet 04/29/20 08/02/20 08/01/20 Rx carvediloL [Coreg] 3.125 mg PO Q12H #60 tablet 04/29/20 08/02/20 08/01/20 Rx Acetaminophen [Acetaminophen TAB] 650 mg PO Q4H PRN tablet 08/09/20 Unknown Rx Arformoterol Nebu [Brovana Nebu] 15 mcg IH Q12HRT ml 08/09/20 Unknown Rx Benzonatate [Tessalon Perles] 100 mg PO Q8HR capsule 08/09/20 Unknown Rx Budesonide [Pulmicort Respules] 0.5 mg IH Q12HRT nebu 08/09/20 Unknown Rx Active Meds: Active Medications Acetaminophen (Acetaminophen 325 Mg Tab) 650 mg PO Q4H PRN PRN Reason: Pain MILD(1-3)/Fever >100.5/BENNETT Albuterol (Albuterol 2.5 Mg/3 Ml Nebu) 2.5 mg IH Q4HRT PRN PRN Reason: Shortness Of Breath Albuterol/Ipratropium (Ipratropium/Albuterol Sulfate 3 Ml Ampul.Neb) 1 ampul IH Q6HRT [facility] Arformoterol Tartrate (Arformoterol 15 Mcg/2 Ml Nebu) 15 mcg IH Q12HRT [facility] Aspirin (Aspirin 81 Mg Tab Chew) 81 mg PO DAILY [facility] Atorvastatin Calcium (Atorvastatin 20 Mg Tab) 20 mg PO QHS [facility] Benzonatate (Benzonatate 100 Mg Cap) 100 mg PO Q8HR [facility] Budesonide (Budesonide 0.5 Mg/2 Ml Nebu) 0.5 mg IH Q12HRT [facility] Carvedilol (Carvedilol 3.125 Mg Tab) 3.125 mg PO Q12H [facility] Famotidine (Famotidine 20 Mg Tab) 20 mg PO BID [facility] Furosemide (Furosemide 40 Mg/4 Ml Inj) 40 mg IV BID@0600,1800 [facility] Hydromorphone HCl (Hydromorphone 1 Mg/1 Ml Inj) 0.5 mg IV Q3H PRN PRN Reason: Pain , Severe (7-10) Levofloxacin/Dextrose (Levaquin 750mg/150ml) 750 mg in 150 mls @ 100 mls/hr IV Q24H [facility]; Protocol Miscellaneous Medication (Apixaban) 5 mg PO Q12HR [facility] Nitroglycerin (Nitroglycerin 0.4 Mg Tab Subl) 0.4 mg SL .Q5MIN PRN PRN Reason: Chest Pain Ondansetron HCl (Ondansetron 4 Mg/2 Ml Inj) 4 mg IV Q8H PRN PRN Reason: Nausea And Vomiting Oxybutynin Chloride (Oxybutynin 5 Mg Tab) 5 mg PO TID [facility] Oxycodone/Acetaminophen (Oxycodone /Acetaminophen 5-325mg Tab) 1 tab PO Q6H PRN PRN Reason: Pain, Moderate (4-6) Ranolazine (Ranolazine Er 500 Mg Tab 12hr) 1,000 mg PO BID [facility] Sodium Chloride (Sodium Chloride 0.9% 10 Ml Flush Syringe) 10 ml IV BID [facility] Sodium Chloride (Sodium Chloride 0.9% 10 Ml Flush Syringe) 10 ml IV PRN PRN PRN Reason: LINE FLUSH Review of Systems All systems: negative Cardiovascular: edema, shortness of breath, dyspnea on exertion Respiratory: cough, shortness of breath, dyspnea on exertion Musculoskeletal: other (Bilateral lower lower extremity swelling) Exam - Constitutional Vitals: Temp Pulse Resp BP Pulse Ox 98.7 F 73 15 113/62 99 11/18/20 19:22 11/18/20 23:01 11/18/20 23:01 11/18/20 23:01 11/18/20 23:01 General appearance: Present: no acute distress, well-nourished - EENT Eyes: Present: PERRL ENT: hearing intact, clear oral mucosa - Neck Neck: Present: supple, normal ROM - Respiratory Respiratory effort: normal Respiratory: bilateral: rales - Cardiovascular Rhythm: irregularly irregular Heart Sounds: Absent: rub, click - Extremities Extremities: pulses symmetrical Extremity abnormal: edema Peripheral Pulses: within normal limits - Abdominal General gastrointestinal: Present: soft, non-tender, non-distended, normal bowel sounds Female genitourinary: Present: normal - Integumentary Integumentary: Present: clear, warm, dry - Musculoskeletal Musculoskeletal: gait normal, strength equal bilaterally - Psychiatric Psychiatric: appropriate mood/affect, intact judgment & insight - Neurologic Neurologic: CNII-XII intact, moves all extremities HEART Score - HEART Score EKG: Non-specific Age: > 65 Risk factors: > 3 risk factors or hx of atherosclerotic disease Troponin: Troponin T < 0.010 ng/mL (0.00-0.029) 11/18/20 20:15 Troponin: < normal limit - Critical Actions Critical Actions: 4-6 pts:12-16.6% risk of adverse cardiac event. Should be admitted Results - Labs CBC & Chem 7: 11/18/20 20:15 11/18/20 20:15 Labs: Laboratory Last Values WBC 4.4 K/mm3 (4.5-11.0) L 11/18/20 20:15 RBC 3.11 M/mm3 (3.65-5.03) L 11/18/20 20:15 Hgb 9.2 gm/dl (10.1-14.3) L 11/18/20 20:15 Hct 27.6 % (30.3-42.9) L 11/18/20 20:15 MCV 89 fl (79-97) 11/18/20 20:15 MCH 30 pg (28-32) 11/18/20 20:15 MCHC 33 % (30-34) 11/18/20 20:15 RDW 23.2 % (13.2-15.2) H 11/18/20 20:15 Plt Count 162 K/mm3 (140-440) 11/18/20 20:15 Lymph % (Auto) 30.5 % (13.4-35.0) 11/18/20 20:15 [place] % (Auto) 8.3 % (0.0-7.3) H 11/18/20 20:15 Eos % (Auto) 1.5 % (0.0-4.3) 11/18/20 20:15 Baso % (Auto) 0.6 % (0.0-1.8) 11/18/20 20:15 Lymph # (Auto) 1.3 K/mm3 (1.2-5.4) 11/18/20 20:15 [place] # (Auto) 0.4 K/mm3 (0.0-0.8) 11/18/20 20:15 Eos # (Auto) 0.1 K/mm3 (0.0-0.4) 11/18/20 20:15 Baso # (Auto) 0.0 K/mm3 (0.0-0.1) 11/18/20 20:15 Seg Neutrophils % 59.1 % (40.0-70.0) 11/18/20 20:15 Seg Neutrophils # 2.6 K/mm3 (1.8-7.7) 11/18/20 20:15 PT 22.1 Sec. (12.2-14.9) H 11/18/20 20:15 INR 1.89 (0.87-1.13) H 11/18/20 20:15 APTT 46.0 Sec. (24.2-36.6) H 11/18/20 20:15 Sodium 135 mmol/L (137-145) L 11/18/20 20:15 Potassium 3.7 mmol/L (3.6-5.0) 11/18/20 20:15 Chloride 106.7 mmol/L (98-107) 11/18/20 20:15 Carbon Dioxide 21 mmol/L (22-30) L 11/18/20 20:15 Anion Gap 11 mmol/L 11/18/20 20:15 BUN 11 mg/dL (7-17) 11/18/20 20:15 Creatinine 0.6 mg/dL (0.6-1.2) 11/18/20 20:15 Estimated GFR > 60 ml/min 11/18/20 20:15 BUN/Creatinine Ratio 18 % 11/18/20 20:15 Glucose 105 mg/dL (65-100) H 11/18/20 20:15 Lactic Acid 1.60 mmol/L (0.7-2.0) 11/18/20 22:10 Calcium 8.3 mg/dL (8.4-10.2) L 11/18/20 20:15 Magnesium 1.50 mg/dL (1.7-2.3) L 11/18/20 20:15 Magnesium 1.60 mg/dL (1.7-2.3) L 11/18/20 20:15 Total Creatine Kinase 29 units/L (30-135) L 11/18/20 20:15 Troponin T < 0.010 ng/mL (0.00-0.029) 11/18/20 20:15 NT-Pro-B Natriuret Pep 140.9 pg/mL (0-900) 11/18/20 20:15 NT-Pro-B Natriuret Pep 147.4 pg/mL (0-900) 11/18/20 20:15 TSH 2.090 mlU/mL (0.270-4.200) 11/18/20 20:15 - Imaging and Cardiology Chest x-ray: report reviewed Assessment and Plan VTE prophylaxis?: Chemical Plan of care discussed with patient/family: Yes - Patient Problems (1) Acute exacerbation of congestive heart failure Current Visit: Yes Status: Acute Plan to address problem: Admit the patient to the medical telemetry. Cardiac diet. Fluid restriction. Maintain input output. Lasix 40 mg IV every 12 hours. DuoNeb by nebulizer every 4 hours. Echocardiogram. Cardiology consult (2) COPD exacerbation Current Visit: Yes Status: Acute Plan to address problem: Oxygen per nasal cannula 3 L/min. DuoNeb by nebulizer every 4 hours. Albuterol via nebulizer every 4 hours as needed. We will monitor the patient closely (3) Chest pain Current Visit: Yes Status: Acute Plan to address problem: Aspirin 81 mg p.o. daily. Lipitor 20 mg p.o. daily. Eliquis 5 mg p.o. twice daily. We will do the serial cardiac enzymes. Echocardiogram. Cardiology consult (4) Atrial fibrillation Current Visit: No Status: Acute Qualifiers: Atrial fibrillation type: longstanding persistent Qualified Code(s): I48.11 - Longstanding persistent atrial fibrillation Plan to address problem: Eliquis 5 mg p.o. twice daily. Echocardiogram. Cardiology consult. We continue the home medication (5) CAD (coronary artery disease) Current Visit: No Status: Chronic Qualifiers: Coronary Disease-Associated Artery/Lesion type: [place] artery [place] vs. transplanted heart: [place] heart Plan to address problem: Aspirin 81 mg p.o. daily. Lipitor 20 mg p.o. daily. Eliquis 5 mg p.o. twice daily. We will do the serial cardiac enzymes. Echocardiogram. Cardiology consult (6) GERD (gastroesophageal reflux disease) Current Visit: No Status: Chronic (7) Pneumonia Current Visit: Yes Status: Acute Plan to address problem: Oxygen via nasal cannula 3 L/min. DuoNeb by nebulizer every 4 hours. Albuterol via nebulizer every 4 hours as needed. Levaquin 750 mg IV daily. We do the blood culture and sputum culture. We also send the Covid PCR (8) DVT prophylaxis Current Visit: No Status: Acute Plan to address problem: Eliquis 5 mg p.o. twice daily for DVT prophylaxis. Pepcid 20 mg p.o. twice daily for GI prophylaxis. Patient is a full code
[2020-11-19] MEDS: carvediloL 3.125 MG TAB PO SCH ×3 (00:42→22:22)
--- NOTE | 2020-11-19 01:35 | Vascular Lab Report ---
DUPLEX DOPPLER LOWER EXTREMITY VEINS, BILATERAL INDICATION / CLINICAL INFORMATION: Bilateral lower extremity pain and swelling. TECHNIQUE: Duplex doppler imaging was performed through the veins of both lower extremities using venous jonatan kaleigh and other maneuvers. COMPARISON: None available. FINDINGS: RIGHT COMMON FEMORAL VEIN: Negative. RIGHT FEMORAL VEIN: Negative. RIGHT POPLITEAL VEIN: Negative. RIGHT CALF VEINS: Negative. LEFT COMMON FEMORAL VEIN: Negative. LEFT FEMORAL VEIN: Negative. LEFT POPLITEAL VEIN: Negative. LEFT CALF VEINS: Negative. ADDITIONAL FINDINGS: None. IMPRESSION: 1. No sonographic evidence for DVT in either lower extremity. Signer Name: Mirza Henry MD Signed: 11/19/2020 1:31 AM Workstation Name: [id number]
[2020-11-19 04:37] LABS: Blood Urea Nitrogen 12 mg/dL (7-17); Calcium 8.4 mg/dL (8.4-10.2); Hemolysis Index 7
[2020-11-19 04:44] LABS: BUN/Creatinine Ratio 17
[2020-11-19 04:46] LABS: Basophils % (Auto) 0.1 % (0.0-1.8); Eosinophils % (Auto) 0.2 % (0.0-4.3); Hematocrit 26.8 % (30.3-42.9); Hemoglobin 8.8 gm/dl (10.1-14.3); Lymphocytes # (Auto) 0.8 K/mm3 (1.2-5.4); Lymphocytes % (Auto) 26.9 % (13.4-35.0); Mean Corpuscular HGB Conc 33 % (30-34); Mean Corpuscular Volume 89 fl (79-97); Monocytes # (Auto) 0.1 K/mm3 (0.0-0.8); Monocytes % (Auto) 1.9 % (0.0-7.3); Platelet Count 149 K/mm3 (140-440); Red Blood Count 3.01 M/mm3 (3.65-5.03); Red Cell Distribution Width 23.1 % (13.2-15.2)
[2020-11-19] MEDS: IPRATROPIUM/ALBUTEROL SULFATE 3 ML AMPUL.NEB IH SCH ×3 (07:48→20:20)
[2020-11-19] MEDS: FUROSEMIDE 40 MG/4 ML INJ IV SCH ×2 (07:54→18:35)
[2020-11-19] MEDS: BENZONATATE 100 MG CAP PO SCH ×3 (08:12→22:16)
[2020-11-19] MEDS: OXYBUTYNIN 5 MG TAB PO SCH ×3 (08:14→22:15)
[2020-11-19] MEDS: BUDESONIDE 0.5 MG/2 ML NEBU IH SCH ×2 (09:12→20:20)
[2020-11-19] MEDS: ARFORMOTEROL 15 MCG/2 ML NEBU IH SCH ×2 (09:13→20:20)
[2020-11-19] MEDS ORDERED: NON-FORMULARY EACH (Apixaban 5 MG Tablet) PO SCH (10:00)
[2020-11-19] MEDS: ASPIRIN 81 MG TAB CHEW PO SCH (11:04)
[2020-11-19] MEDS: APIXABAN 5 MG TAB PO SCH ×2 (11:04→22:17)
[2020-11-19] MEDS: FAMOTIDINE 20 MG TAB PO SCH ×2 (11:04→22:17)
[2020-11-19] MEDS: RANOLAZINE ER 500 MG TAB 12HR PO SCH ×2 (11:05→22:15)
--- NOTE | 2020-11-19 11:10 | Electrocardiograph Report ---
[facility] Test Date: 2020-11-18 Test Time: 20:28:24 Pat Name: RUDOLPH LEE Department: Room: [place] [address] Gender: F System Support Administrator: ANA : 1935 Requested By: SUSAN CHOI Order Number: [id number] Reading MD: Jeffrey Burnett Measurements Intervals [place] Rate: 78 P: 74 DC: 170 QRS: 6 QRSD: 86 T: 57 QT: 416 QTc: 473 Interpretive Statements Sinus rhythm Nonspecific T abnormalities, anterior leads Compared to ECG 08/01/2020 15:02:33 T-wave abnormality now present ST (T wave) deviation no longer present Possible ischemia no longer present Electronically Signed On 11-19-2020 11:10:17 EDT by Jeffrey Burnett
--- NOTE | 2020-11-19 11:55 | Consultation ---
History of Present Illness Consult date: 11/19/20 Consult reason: other (Edema) History of present illness: The patient is a frail, elderly 85-year-old woman with progressive dementia, paroxysmal atrial fibrillation and coronary artery disease. She was brought to the emergency room with complaints of lower extremity edema. There was no chest pain or unusual shortness of breath reported. Cardiology consultation was requested for assessment of "CHF". Patient's cardiac history includes coronary artery disease for which she underwent a three-vessel coronary artery bypass in the year 1999. 10 years later in 2009, a cardiac catheterization revealed all bypass grafts to be pa tent. Serial left ventricular function assessments over the years show well- preserved left ventricular systolic function with ejection fraction reported at 60%. Most significant finding on previous echocardiogram was severe tricuspid regurgitation and at least moderate pulmonary hypertension with right ventricular systolic pressure of 47. At this time, she is in the emergency room, comfortable on room air, with only mild lower extremity edema. EKG is normal sinus rhythm with nonspecific T wave changes. Chest x-ray reveals a normal-sized cardiac silhouette, chronic interstitial lung changes, but no interstitial edema. Past History Past Medical History: atrial fib, arthritis, CAD, COPD, GERD, hypertension, hyperlipidemia, other (Dementia) Past Surgical History: cholecystectomy, CABG, hysterectomy Medications and Allergies Allergies Allergy/AdvReac Type Severity Reaction Status Date / Time Penicillins Allergy Severe EVRYTHING Verified 11/19/20 10:58 SWELLS Sulfa (Sulfonamide Allergy Mild Itching Verified 08/02/20 01:06 Antibiotics) azithromycin [From Zithromax] Allergy Itching Verified 08/02/20 01:06 iv dye Allergy Shortness Uncoded 11/19/20 10:58 of Breath Home Medications Medication Instructions Recorded Confirmed Last Taken Type Aspirin [Aspirin BABY CHEW TAB] 81 mg PO DAILY #100 tab.chew 04/28/18 11/19/20 08/01/20 Rx Apixaban [Eliquis] 5 mg PO Q12HR #60 tablet 04/29/20 11/19/20 08/01/20 Rx AtorvaSTATin [Lipitor] 20 mg PO QHS #30 tablet 04/29/20 11/19/20 08/01/20 Rx Pantoprazole [Protonix TAB] 20 mg PO QDAY #30 tablet. 04/29/20 11/19/20 08/01/20 Rx allopurinoL [Zyloprim] 200 mg PO QDAY #30 tablet 04/29/20 11/19/20 08/01/20 Rx carvediloL [Coreg] 3.125 mg PO Q12H #60 tablet 04/29/20 11/19/20 08/01/20 Rx Albuterol Mdi (or & Nicu Only) 2 puff PO BID PRN 11/19/20 11/19/20 Unknown History [ProAir HFA Inhaler] Cholecalciferol Vit D3 [Vitamin D3 1,000 unit PO QDAY 11/19/20 11/19/20 Unknown History 1,000 UNIT TAB] Fluticasone/Salmeterol [Advair 1 puff IH BID 11/19/20 11/19/20 Unknown History Diskus 250-50 mcg] Ranolazine [Ranexa] 500 mg PO BID 11/19/20 11/19/20 Unknown History Temazepam [Restoril] 15 mg PO QHS PRN 11/19/20 11/19/20 Unknown History Tolterodine (Nf) [Detrol LA] 4 mg PO QDAY 11/19/20 11/19/20 Unknown History Active Meds: Active Medications Acetaminophen (Acetaminophen 325 Mg Tab) 650 mg PO Q4H PRN PRN Reason: Pain MILD(1-3)/Fever >100.5/BENNETT Albuterol (Albuterol 2.5 Mg/3 Ml Nebu) 2.5 mg IH Q4HRT PRN PRN Reason: Shortness Of Breath Albuterol/Ipratropium (Ipratropium/Albuterol Sulfate 3 Ml Ampul.Neb) 1 ampul IH Q6HRT [facility] Last Admin: 11/19/20 07:48 Dose: Not Given Documented by: Apixaban (Apixaban 5 Mg Tab) 5 mg PO Q12HR [facility] Last Admin: 11/19/20 11:04 Dose: 5 mg Documented by: Arformoterol Tartrate (Arformoterol 15 Mcg/2 Ml Nebu) 15 mcg IH Q12HRT [facility] Last Admin: 11/19/20 09:13 Dose: 15 mcg Documented by: Aspirin (Aspirin 81 Mg Tab Chew) 81 mg PO DAILY [facility] Last Admin: 11/19/20 11:04 Dose: 81 mg Documented by: Atorvastatin Calcium (Atorvastatin 20 Mg Tab) 20 mg PO QHS [facility] Benzonatate (Benzonatate 100 Mg Cap) 100 mg PO Q8HR [facility] Last Admin: 11/19/20 08:12 Dose: 100 mg Documented by: Budesonide (Budesonide 0.5 Mg/2 Ml Nebu) 0.5 mg IH Q12HRT [facility] Last Admin: 11/19/20 09:12 Dose: 0.5 mg Documented by: Carvedilol (Carvedilol 3.125 Mg Tab) 3.125 mg PO Q12HR [facility] Last Admin: 11/19/20 11:04 Dose: 3.125 mg Documented by: Famotidine (Famotidine 20 Mg Tab) 20 mg PO BID [facility] Last Admin: 11/19/20 11:04 Dose: 20 mg Documented by: Furosemide (Furosemide 40 Mg/4 Ml Inj) 40 mg IV BID@0600,1800 [facility] Last Admin: 11/19/20 07:54 Dose: 40 mg Documented by: Hydromorphone HCl (Hydromorphone 1 Mg/1 Ml Inj) 0.5 mg IV Q3H PRN PRN Reason: Pain , Severe (7-10) Levofloxacin/Dextrose (Levaquin 750mg/150ml) 750 mg in 150 mls @ 100 mls/hr IV Q24H [facility]; Protocol Nitroglycerin (Nitroglycerin 0.4 Mg Tab Subl) 0.4 mg SL .Q5MIN PRN PRN Reason: Chest Pain Ondansetron HCl (Ondansetron 4 Mg/2 Ml Inj) 4 mg IV Q8H PRN PRN Reason: Nausea And Vomiting Oxybutynin Chloride (Oxybutynin 5 Mg Tab) 5 mg PO TID [facility] Last Admin: 11/19/20 08:14 Dose: 5 mg Documented by: Oxycodone/Acetaminophen (Oxycodone /Acetaminophen 5-325mg Tab) 1 tab PO Q6H PRN PRN Reason: Pain, Moderate (4-6) Ranolazine (Ranolazine Er 500 Mg Tab 12hr) 1,000 mg PO BID [facility] Last Admin: 11/19/20 11:05 Dose: 1,000 mg Documented by: Sodium Chloride (Sodium Chloride 0.9% 10 Ml Flush Syringe) 10 ml IV BID [facility] Last Admin: 11/19/20 10:59 Dose: 10 ml Documented by: Sodium Chloride (Sodium Chloride 0.9% 10 Ml Flush Syringe) 10 ml IV PRN PRN PRN Reason: LINE FLUSH Review of Systems ROS unobtainable: due to mental status Physical Examination Vital Signs Temp Pulse Resp BP Pulse Ox 98.7 F 77 17 118/64 98 11/18/20 19:22 11/18/20 19:22 11/18/20 19:22 11/18/20 19:22 11/18/20 19:22 General appearance: no acute distress HEENT: Positive: PERRL Neck: Positive: neck supple Cardiac: Positive: Reg Rate and Rhythm Lungs: Positive: Decreased Breath Sounds Neuro: Positive: Weakness (Generalized lethargy) Abdomen: Positive: Soft Female genitourinary: deferred Skin: Positive: Clear Extremities: Present: +1 Edema Results 11/19/20 04:06 11/19/20 04:06 Coagulation 11/18/20 Range/Units 20:15 PT 22.1 H (12.2-14.9) Sec. INR 1.89 H (0.87-1.13) APTT 46.0 H (24.2-36.6) Sec. CBC 11/18/20 11/19/20 Range/Units 20:15 04:06 WBC 4.4 L 3.2 L (4.5-11.0) K/mm3 RBC 3.11 L 3.01 L (3.65-5.03) M/mm3 Hgb 9.2 L 8.8 L (10.1-14.3) gm/dl Hct 27.6 L 26.8 L (30.3-42.9) % Plt Count 162 149 (140-440) K/mm3 Lymph # (Auto) 1.3 0.8 L (1.2-5.4) K/mm3 [place] # (Auto) 0.4 0.1 (0.0-0.8) K/mm3 Eos # (Auto) 0.1 0.0 (0.0-0.4) K/mm3 Baso # (Auto) 0.0 0.0 (0.0-0.1) K/mm3 Comprehensive Metabolic Panel 11/18/20 11/19/20 Range/Units 20:15 04:06 Sodium 135 L 134 L (137-145) mmol/L Potassium 3.7 3.7 (3.6-5.0) mmol/L Chloride 106.7 105.6 (98-107) mmol/L Carbon Dioxide 21 L 22 (22-30) mmol/L BUN 11 12 (7-17) mg/dL Creatinine 0.6 0.7 (0.6-1.2) mg/dL Glucose 105 H 135 H (65-100) mg/dL Calcium 8.3 L 8.4 (8.4-10.2) mg/dL EKG interpretations - Telemetry EKG Rhythm: Sinus Rhythm Assessment and Plan - Patient Problems (1) Edema Current Visit: Yes Status: Acute Plan to address problem: Patient presents with edema of bilateral lower extremities. She has a history of coronary artery disease as described above, but has historically normal left ventricular systolic function. Edema is likely due to right-sided fluid overload from tricuspid valve regurgitation and pulmonary hypertension. In this setting, we will optimize diuretic therapy and otherwise continue conservative cardiac management in this elderly frail patient with multiple severe comorbidities. (2) Paroxysmal atrial fibrillation Current Visit: Yes Status: Acute Plan to address problem: Patient is currently in a stable sinus rhythm, she is also chronically on Eliquis. Due to her advanced age, frailty and chronic anemia, it would be prudent to consider a reduction to low-dose Eliquis to reduce her potential bleeding risk. (3) Coronary artery disease Current Visit: Yes Status: Acute Plan to address problem: Patient has asymptomatic coronary artery disease status post previous coronary bypass, continue guideline directed medical therapy as tolerated, otherwise conservative management.
--- NOTE | 2020-11-19 14:09 | Progress Note ---
Assessment and Plan Assessment and plan: --COVID-19 negative -- Acute exacerbation of congestive heart failure Current Visit: Yes Status: Acute No evidence of congestive heart failure, previous echocardiogram normal LV function BNP normal range, chest x-ray negative for congestion, follow echocardiogram Cardiology evaluation noted and appreciated --Bilateral lower extremity edema; Due to pulmonary hypertension Edema probably due to right-sided fluid overload from tricuspid regurgitation and pulmonary hypertension.Continue diuretics, low-sodium diet low-sodium diet -- COPD exacerbation Current Visit: Yes Status: Acute Oxygen per nasal cannula 3 L/min. DuoNeb by nebulizer every 4 hours. Albuterol via nebulizer every 4 hours as needed. We will monitor the patient closely Consider pulmonary evaluation if needed --Chest pain Current Visit: Yes Status: Acute Aspirin 81 mg p.o. daily. Lipitor 20 mg p.o. daily. Eliquis 5 mg p.o. twice daily. We will do the serial cardiac enzymes. Echocardiogram. Cardiology consult --Atrial fibrillation Current Visit: No Status: Acute Eliquis 5 mg p.o. twice daily. Beta-blockers --CAD (coronary artery disease) Current Visit: No Status: Chronic Continue aspirin, beta-blockers statin,Ranexa Follow echocardiogram, cardiology evaluation noted and appreciated -- GERD (gastroesophageal reflux disease) Current Visit: No Status: Chronic Pepcid --Pneumonia Current Visit: Yes Status: Acute Oxygen via nasal cannula 3 L/min. DuoNeb by nebulizer every 4 hours. Albuterol via nebulizer every 4 hours as needed. Levaquin 750 mg IV daily. We do the blood culture and sputum culture. --Full code -- DVT prophylaxis Current Visit: No Status: Acute Plan to address problem: Eliquis 5 mg p.o. twice daily for DVT prophylaxis. We will closely monitor the patient and adjust the management as needed Plan of care reviewed with the patient and her nurse Cardiology evaluation recommendations noted and appreciated Brief history; Patient was admitted with bilateral lower extremity edema and worsening shortness of breath, cardiology evaluated the patient, unlikely congestive heart failure As previous records show normal LV function. BNP within normal limits. No congestion on chest x-ray Edema, Probably due to tricuspid regurgitation and pulmonary hypertension 11/19/2020; Cardiology evaluation noted, consider pulmonary evaluation if needed Discharge home when clinically stable, follow echocardiogram History Interval history: I have seen and examined the patient in ER awaiting bed assignment Patient's chart and medications reviewed Patient feels slightly better,Complains of mild shortness of breath Denies chest pain Hospitalist Physical - Constitutional Vitals: Temp Pulse Resp BP Pulse Ox 98.7 F 75 16 136/56 100 11/18/20 19:22 11/19/20 13:49 11/19/20 13:49 11/19/20 13:49 11/19/20 13:49 General appearance: Present: no acute distress, well-nourished - EENT Eyes: Present: PERRL, EOM intact - Neck Neck: Present: supple, normal ROM - Respiratory Respiratory effort: normal Respiratory: bilateral: diminished, rales, negative: rhonchi, wheezing - Cardiovascular Rhythm: regular Heart Sounds: Present: S1 & S2 - Extremities Extremities: no ischemia, No edema - Abdominal General gastrointestinal: soft, non-tender, non-distended, normal bowel sounds - Integumentary Integumentary: Present: clear, warm - Psychiatric Psychiatric: appropriate mood/affect, cooperative - Neurologic Neurologic: moves all extremities HEART Score - HEART Score EKG: Non-specific Age: > 65 Risk factors: > 3 risk factors or hx of atherosclerotic disease Troponin: Troponin T < 0.010 ng/mL (0.00-0.029) 11/18/20 20:15 Troponin: < normal limit - Critical Actions Critical Actions: 4-6 pts:12-16.6% risk of adverse cardiac event. Should be admitted Results - Labs CBC & Chem 7: 11/19/20 04:06 11/19/20 04:06 Labs: Laboratory Last Values WBC 3.2 K/mm3 (4.5-11.0) L 11/19/20 04:06 RBC 3.01 M/mm3 (3.65-5.03) L 11/19/20 04:06 Hgb 8.8 gm/dl (10.1-14.3) L 11/19/20 04:06 Hct 26.8 % (30.3-42.9) L 11/19/20 04:06 MCV 89 fl (79-97) 11/19/20 04:06 MCH 29 pg (28-32) 11/19/20 04:06 MCHC 33 % (30-34) 11/19/20 04:06 RDW 23.1 % (13.2-15.2) H 11/19/20 04:06 Plt Count 149 K/mm3 (140-440) 11/19/20 04:06 Lymph % (Auto) 26.9 % (13.4-35.0) 11/19/20 04:06 [place] % (Auto) 1.9 % (0.0-7.3) 11/19/20 04:06 Eos % (Auto) 0.2 % (0.0-4.3) 11/19/20 04:06 Baso % (Auto) 0.1 % (0.0-1.8) 11/19/20 04:06 Lymph # (Auto) 0.8 K/mm3 (1.2-5.4) L 11/19/20 04:06 [place] # (Auto) 0.1 K/mm3 (0.0-0.8) 11/19/20 04:06 Eos # (Auto) 0.0 K/mm3 (0.0-0.4) 11/19/20 04:06 Baso # (Auto) 0.0 K/mm3 (0.0-0.1) 11/19/20 04:06 Seg Neutrophils % 70.9 % (40.0-70.0) H 11/19/20 04:06 Seg Neutrophils # 2.2 K/mm3 (1.8-7.7) 11/19/20 04:06 PT 22.1 Sec. (12.2-14.9) H 11/18/20 20:15 INR 1.89 (0.87-1.13) H 11/18/20 20:15 APTT 46.0 Sec. (24.2-36.6) H 11/18/20 20:15 Sodium 134 mmol/L (137-145) L 11/19/20 04:06 Potassium 3.7 mmol/L (3.6-5.0) 11/19/20 04:06 Chloride 105.6 mmol/L (98-107) 11/19/20 04:06 Carbon Dioxide 22 mmol/L (22-30) 11/19/20 04:06 Anion Gap 10 mmol/L 11/19/20 04:06 BUN 12 mg/dL (7-17) 11/19/20 04:06 Creatinine 0.7 mg/dL (0.6-1.2) 11/19/20 04:06 Estimated GFR > 60 ml/min 11/19/20 04:06 BUN/Creatinine Ratio 17 % 11/19/20 04:06 Glucose 135 mg/dL (65-100) H 11/19/20 04:06 Lactic Acid 1.60 mmol/L (0.7-2.0) 11/18/20 22:10 Calcium 8.4 mg/dL (8.4-10.2) 11/19/20 04:06 Magnesium 1.50 mg/dL (1.7-2.3) L 11/18/20 20:15 Magnesium 1.60 mg/dL (1.7-2.3) L 11/18/20 20:15 Total Creatine Kinase 29 units/L (30-135) L 11/18/20 20:15 Troponin T < 0.010 ng/mL (0.00-0.029) 11/18/20 20:15 NT-Pro-B Natriuret Pep 140.9 pg/mL (0-900) 11/18/20 20:15 NT-Pro-B Natriuret Pep 147.4 pg/mL (0-900) 11/18/20 20:15 TSH 2.090 mlU/mL (0.270-4.200) 11/18/20 20:15 Microbiology: Microbiology 11/18/20 22:10 Peripheral/Venous Blood Culture - Preliminary Culture in Progress 11/18/20 22:18 Peripheral/Venous Blood Culture - Preliminary Culture in Progress Active Medications - Current Medications Current Medications: Generic Name Dose Route Start Last Admin Trade Name Freq PRN Reason Stop Dose Admin Acetaminophen 650 mg 11/18/20 23:19 Acetaminophen 325 Mg Tab PO Q4H PRN Pain MILD(1-3)/Fever >100.5/BENNETT Albuterol 2.5 mg 11/18/20 23:19 Albuterol 2.5 Mg/3 Ml Nebu IH Q4HRT PRN Shortness Of Breath Albuterol/Ipratropium 1 ampul 11/19/20 02:00 11/19/20 07:48 Ipratropium/Albuterol Sulfate 3 Ml Ampul.Neb IH Not Given Q6HRT [facility] Apixaban 5 mg 11/19/20 10:00 11/19/20 11:04 Apixaban 5 Mg Tab PO 5 mg Q12HR CHARBEL Administration Arformoterol Tartrate 15 mcg 11/19/20 08:00 11/19/20 09:13 Arformoterol 15 Mcg/2 Ml Nebu IH 15 mcg Q12HRT CHARBEL Administration Aspirin 81 mg 11/19/20 10:00 11/19/20 11:04 Aspirin 81 Mg Tab Chew PO 81 mg DAILY CHARBEL Administration Atorvastatin Calcium 20 mg 11/19/20 22:00 Atorvastatin 20 Mg Tab PO QHS CHARBEL Benzonatate 100 mg 11/19/20 06:00 11/19/20 08:12 Benzonatate 100 Mg Cap PO 100 mg Q8HR CHARBEL Administration Budesonide 0.5 mg 11/19/20 08:00 11/19/20 09:12 Budesonide 0.5 Mg/2 Ml Nebu IH 0.5 mg Q12HRT CHARBEL Administration Carvedilol 3.125 mg 11/18/20 23:45 11/19/20 11:04 Carvedilol 3.125 Mg Tab PO 3.125 mg Q12HR CHARBEL Administration Famotidine 20 mg 11/19/20 10:00 11/19/20 11:04 Famotidine 20 Mg Tab PO 20 mg BID CHARBEL Administration Furosemide 40 mg 11/19/20 06:00 11/19/20 07:54 Furosemide 40 Mg/4 Ml Inj IV 40 mg BID@0600,1800 [facility] Administration Hydromorphone HCl 0.5 mg 11/18/20 23:19 Hydromorphone 1 Mg/1 Ml Inj IV Q3H PRN Pain , Severe (7-10) Levofloxacin/Dextrose 750 mg in 150 mls @ 100 mls/hr 11/19/20 22:00 Levaquin 750mg/150ml IV Q24H [facility] Protocol Nitroglycerin 0.4 mg 11/18/20 20:05 Nitroglycerin 0.4 Mg Tab Subl SL .Q5MIN PRN Chest Pain Ondansetron HCl 4 mg 11/18/20 23:19 Ondansetron 4 Mg/2 Ml Inj IV Q8H PRN Nausea And Vomiting Oxybutynin Chloride 5 mg 11/19/20 08:00 11/19/20 08:14 Oxybutynin 5 Mg Tab PO 5 mg TID CHARBEL Administration Oxycodone/Acetaminophen 1 tab 11/18/20 23:19 Oxycodone /Acetaminophen 5-325mg Tab PO Q6H PRN Pain, Moderate (4-6) Ranolazine 1,000 mg 11/19/20 10:00 11/19/20 11:05 Ranolazine Er 500 Mg Tab 12hr PO 1,000 mg BID CHARBEL Administration Sodium Chloride 10 ml 11/19/20 10:00 11/19/20 10:59 Sodium Chloride 0.9% 10 Ml Flush Syringe IV 10 ml BID CHARBEL Administration Sodium Chloride 10 ml 11/18/20 23:19 Sodium Chloride 0.9% 10 Ml Flush Syringe IV PRN PRN LINE FLUSH
[2020-11-19 14:33] LABS: Bacteria,Urine 4+ /HPF (Negative); Bilirubin,Urine NEG (Negative); Blood,Urine LG (Negative); Color,Urine Yellow (Yellow); Hyaline Casts,Urine 4 /LPF; Mucus,Urine FEW /HPF; Protein,Urine <15 mg/dL mg/dL (Negative); Urobilinogen,Urine < 2.0 mg/dL (<2.0)
[2020-11-20] MEDS: IPRATROPIUM/ALBUTEROL SULFATE 3 ML AMPUL.NEB IH SCH ×4 (02:43→22:07)
[2020-11-20] MEDS: BENZONATATE 100 MG CAP PO SCH ×3 (06:36→21:39)
[2020-11-20] MEDS: FUROSEMIDE 40 MG/4 ML INJ IV SCH ×2 (06:36→21:38)
[2020-11-20 06:38] LABS: BUN/Creatinine Ratio 20; Blood Urea Nitrogen 16 mg/dL (7-17); Calcium 8.5 mg/dL (8.4-10.2); Hemolysis Index 29
[2020-11-20] MEDS: OXYBUTYNIN 5 MG TAB PO SCH ×3 (08:05→21:39)
[2020-11-20] MEDS: ARFORMOTEROL 15 MCG/2 ML NEBU IH SCH ×2 (09:34→22:07)
[2020-11-20] MEDS: BUDESONIDE 0.5 MG/2 ML NEBU IH SCH ×2 (09:34→22:08)
--- NOTE | 2020-11-20 09:51 | Progress Note ---
<KENYATTA BALL - Last Filed: 11/20/20 11:40> Assessment and Plan Bilateral lower extremity edema likely due to right-sided fluid overload from tricuspid valve regurgitation and pulmonary hypertension. Paroxysmal Afib currently in sinus rhythm. on eliquis for oral anticoagulation therapy. Hx of CAD with 3 vessel bypass surgery in 1999. LHC in 2009 revealed all 3 bypass grafts to be patent, with left ventricular ejection fraction normal at 60%. an echocardiogram in 2012 reported a left ventricle ejection fraction maintained at 60%. Normal persantine thallium stress test in 2016. Chronic Anemia Hypertension Diabetes Recommendation: Continue optimal diuretic therapy. An echocardiogram has been ordered for LVEF reassessment. Patient is chronically on Eliquis for paroxysmal atrial fibrillation. Due to her advanced age, frailty and chronic anemia, will reduce to low-dose Eliquis to reduce her potential bleeding risk. Subjective Date of service: 11/20/20 Objective Vital Signs Temp Pulse Pulse Resp Resp BP BP 11/20/20 09:45 11/20/20 09:33 88 18 11/20/20 07:44 97.4 F L 72 18 109/56 11/20/20 06:52 18 11/20/20 06:00 84 11/20/20 03:51 97.5 F L 82 14 117/65 11/19/20 23:30 16 11/19/20 23:01 81 13 137/74 11/19/20 22:55 83 15 115/64 11/19/20 22:52 84 11/19/20 22:22 81 115/64 11/19/20 22:01 85 15 11/19/20 21:01 11/19/20 20:20 84 16 11/19/20 20:01 11/19/20 19:01 141/73 11/19/20 13:49 75 16 136/56 Pulse Ox 11/20/20 09:45 98 11/20/20 09:33 11/20/20 07:44 100 11/20/20 06:52 98 11/20/20 06:00 11/20/20 03:51 100 11/19/20 23:30 100 11/19/20 23:01 11/19/20 22:55 11/19/20 22:52 11/19/20 22:22 11/19/20 22:01 11/19/20 21:01 100 11/19/20 20:20 100 11/19/20 20:01 100 11/19/20 19:01 100 11/19/20 13:49 100 - Physical Examination General: No Apparent Distress HEENT: Positive: PERRL Neck: Positive: neck supple Cardiac: Positive: Reg Rate and Rhythm Lungs: Positive: Decreased Breath Sounds Neuro: Positive: Weakness (Generalized lethargy) Extremities: Present: +1 Edema - Labs and Meds Comprehensive Metabolic Panel 11/20/20 Range/Units 05:13 Sodium 133 L (137-145) mmol/L Potassium 3.8 (3.6-5.0) mmol/L Chloride 101.0 (98-107) mmol/L Carbon Dioxide 24 (22-30) mmol/L BUN 16 (7-17) mg/dL Creatinine 0.8 (0.6-1.2) mg/dL Glucose 102 H (65-100) mg/dL Calcium 8.5 (8.4-10.2) mg/dL <EDA CAMP - Last Filed: 11/25/20 17:53> Subjective Interval history: I SAW THIS PT & AGREE WITH THE Dx & Tx PLAN.
[2020-11-20] MEDS: FAMOTIDINE 20 MG TAB PO SCH ×2 (09:56→21:39)
[2020-11-20] MEDS: carvediloL 3.125 MG TAB PO SCH ×2 (09:56→21:40)
[2020-11-20] MEDS: ASPIRIN 81 MG TAB CHEW PO SCH (09:56)
[2020-11-20] MEDS: RANOLAZINE ER 500 MG TAB 12HR PO SCH ×2 (09:56→21:39)
[2020-11-20] MEDS: APIXABAN 5 MG TAB PO SCH ×2 (10:06→21:42)
--- NOTE | 2020-11-20 23:19 | Progress Note ---
Assessment and Plan --Bilateral lower extremity edema; Due to pulmonary hypertension Edema probably due to right-sided fluid overload from tricuspid regurgitation and pulmonary hypertension.Continue diuretics, low-sodium diet low-sodium diet 2D echo pending --Pneumonia bilateral, likely CAP Oxygen via nasal cannula 3 L/min. DuoNeb by nebulizer every 4 hours. Albuterol via nebulizer every 4 hours as needed. Levaquin 750 mg IV daily. neg blood culture , COVID-19 negative -- COPD exacerbation Oxygen per nasal cannula 3 L/min. DuoNeb by nebulizer every 4 hours. Albuterol via nebulizer every 4 hours as needed. We will monitor the patient closely Consider pulmonary evaluation if needed --Chest pain, likely due to GERD Aspirin 81 mg p.o. daily. Lipitor 20 mg p.o. daily. Eliquis 5 mg p.o. twice daily. We will do the serial cardiac enzymes. Ordered echocardiogram. Cardiology consult --Atrial fibrillation, paroxysmal Eliquis 5 mg p.o. twice daily. Beta-blockers --CAD (coronary artery disease) Continue aspirin, beta-blockers statin,Ranexa Follow-up echocardiogram, cardiology evaluation noted and appreciated -- GERD (gastroesophageal reflux disease), cont Pepcid --Full code -- DVT prophylaxis Eliquis 5 mg p.o. twice daily for DVT prophylaxis. Brief history; Patient was admitted with bilateral lower extremity edema and worsening shortness of breath, cardiology evaluated the patient, BNP within normal limits. No congestion on chest x-ray. LE Edema, Probably due to tricuspid regurgitation and pulmonary hypertension 11/19/2020; Cardiology evaluation noted, consider pulmonary evaluation if needed Discharge home when clinically stable, follow echocardiogram 11/20/20: Continue IV diuresis, follow 2D echocardiogram result, cardiology following. Patient on hospice service at home. Subjective Date of service: 11/20/20 Interval history: Patient seen and examined. Medical records and medication list reviewed. No acute event overnight noted by the RN. Patient denies any chest pain or difficulty breathing. Patient is tolerating diet. Patient continues to complains of bilateral lower extremity edema Discussed plan of care at bedside with patient. Objective - Exam Narrative Exam: GENERAL: well-developed and well-nourished elderly -Greek female lying on bed appeared to be in no discomfort. HEENT: Normocephalic. Atraumatic. No conjunctival congestion or icterus. Patient has moist mucous membranes. NECK: Supple. Trachea midline. CHEST/LUNGS: Clear to auscultated bilaterally, breathing nonlabored. No wheezes crackles or rhonchi. HEART/CARDIOVASCULAR: Regular in rate and rhythm. S1 and S2 positive. ABDOMEN: Abdomen is soft, nontender. Patient has normal bowel sounds. SKIN: There is no rash. Warm and dry. NEURO: No focal motor deficit. Follows command. MUSCULOSKELETAL: No joint effusion or tenderness. EXTRIMITY: +ve b/l edema, no cyanosis or clubbing. PSYCH: Cooperative. - Constitutional Vitals: Vital Signs - 12hr 11/20/20 11/20/20 11/20/20 12:07 15:00 15:20 Temperature 94.5 F L Pulse Rate 72 74 Pulse Rate [ 88 Anterior Throughout] Respiratory 20 Rate Respiratory 18 Rate [Anterior Throughout] Blood Pressure 92/48 O2 Sat by Pulse 96 Oximetry 11/20/20 11/20/20 19:13 20:17 Temperature 98.6 F Pulse Rate 83 Pulse Rate [ Anterior Throughout] Respiratory 18 Rate Respiratory Rate [Anterior Throughout] Blood Pressure 99/55 O2 Sat by Pulse 100 98 Oximetry - Labs CBC & Chem 7: 11/19/20 04:06 11/20/20 05:13 Labs: Abnormal lab results 11/20/20 Range/Units 05:13 Sodium 133 L (137-145) mmol/L Glucose 102 H (65-100) mg/dL HEART Score - HEART Score EKG: Non-specific Age: > 65 Risk factors: > 3 risk factors or hx of atherosclerotic disease Troponin: Troponin T < 0.010 ng/mL (0.00-0.029) 11/18/20 20:15 Troponin: < normal limit - Critical Actions Critical Actions: 4-6 pts:12-16.6% risk of adverse cardiac event. Should be admitted
[2020-11-21] MEDS: IPRATROPIUM/ALBUTEROL SULFATE 3 ML AMPUL.NEB IH SCH ×2 (04:05→21:02)
[2020-11-21] MEDS: BENZONATATE 100 MG CAP PO SCH ×3 (05:37→21:40)
[2020-11-21] MEDS: FUROSEMIDE 40 MG/4 ML INJ IV SCH ×2 (05:37→20:07)
[2020-11-21] MEDS: carvediloL 3.125 MG TAB PO SCH (10:46)
[2020-11-21] MEDS: RANOLAZINE ER 500 MG TAB 12HR PO SCH ×2 (10:46→21:40)
[2020-11-21] MEDS: FAMOTIDINE 20 MG TAB PO SCH ×2 (10:46→21:41)
[2020-11-21] MEDS: APIXABAN 5 MG TAB PO SCH ×2 (10:48→21:41)
[2020-11-21] MEDS: ASPIRIN 81 MG TAB CHEW PO SCH (10:48)
[2020-11-21] MEDS: OXYBUTYNIN 5 MG TAB PO SCH ×3 (10:53→21:40)
--- NOTE | 2020-11-21 11:47 | Progress Note ---
Assessment and Plan Bilateral lower extremity edema likely due to right-sided fluid overload from tricuspid valve regurgitation and pulmonary hypertension. An echocardiogram reports moderate to severe TR, with moderate pulmonary hypertension. Normal LVEF Paroxysmal Afib currently in sinus rhythm. on eliquis for oral anticoagulation therapy. Hx of CAD with 3 vessel bypass surgery in 1999. LHC in 2009 revealed all 3 bypass grafts to be patent, with left ventricular ejection fraction normal at 60%. an echocardiogram in 2012 reported a left ventricle ejection fraction maintained at 60%. Normal persantine thallium stress test in 2016. Chronic Anemia Hypertension Diabetes Recommendation: Daily weight and I's and O's. Continue optimal diuretic therapy. Patient medical therapy for paroxysmal atrial fibrillation and coronary artery disease. Due to chronic anemia, we will discontinue aspirin therapy. Subjective Date of service: 11/21/20 Interval history: Patient has no cardiac complaints. Denies SOB and denies chest pain. No cardiac events reported. Objective Vital Signs Temp Pulse Pulse Resp Resp BP Pulse Ox 11/21/20 10:51 99.0 F 76 76 H 104/48 99 11/21/20 10:46 79 11/21/20 07:50 97.3 F L 18 101/46 11/21/20 04:50 97.8 F 83 18 110/59 100 11/21/20 03:58 83 11/21/20 00:41 97.9 F 77 16 108/55 99 11/20/20 20:17 98 11/20/20 19:13 98.6 F 83 18 99/55 100 11/20/20 15:20 94.5 F L 74 20 92/48 96 11/20/20 15:00 88 18 11/20/20 12:07 72 - Physical Examination General: No Apparent Distress HEENT: Positive: PERRL Neck: Positive: neck supple Cardiac: Positive: Reg Rate and Rhythm Lungs: Positive: Decreased Breath Sounds Neuro: Positive: Weakness (Generalized lethargy) Abdomen: Positive: Soft Extremities: Present: edema (non-pitting)
[2020-11-21] MEDS: ARFORMOTEROL 15 MCG/2 ML NEBU IH SCH ×2 (21:03→21:04)
[2020-11-21] MEDS: BUDESONIDE 0.5 MG/2 ML NEBU IH SCH ×2 (21:04)
--- NOTE | 2020-11-22 00:01 | Progress Note ---
Assessment and Plan --Bilateral lower extremity edema; Due to pulmonary hypertension Edema probably due to right-sided fluid overload from tricuspid regurgitation and pulmonary hypertension.Continue diuretics, low-sodium diet low-sodium diet 2D echo showed preserved EF --Pneumonia bilateral, likely CAP Oxygen via nasal cannula 3 L/min. DuoNeb by nebulizer every 4 hours. Albuterol via nebulizer every 4 hours as needed. Levaquin 750 mg IV daily. neg blood culture , COVID-19 negative -- COPD exacerbation Oxygen per nasal cannula 3 L/min. DuoNeb by nebulizer every 4 hours. Albuterol via nebulizer every 4 hours as needed. We will monitor the patient closely Consider pulmonary evaluation if needed --Chest pain, likely due to GERD Aspirin 81 mg p.o. daily. Lipitor 20 mg p.o. daily. Eliquis 5 mg p.o. twice daily. neg serial cardiac enzymes. preserved EF on 2d echocardiogram. Cardiology consult --Atrial fibrillation, paroxysmal Eliquis 5 mg p.o. twice daily. Beta-blockers --CAD (coronary artery disease) Hx of CAD with 3 vessel bypass surgery in 1999 Continue aspirin, beta-blockers statin,Ranexa Follow-up echocardiogram, cardiology evaluation noted and appreciated -- GERD (gastroesophageal reflux disease), cont Pepcid --Hypomagnesemia, replete and monitor --Full code -- DVT prophylaxis Eliquis 5 mg p.o. twice daily for DVT prophylaxis. Brief history; Patient was admitted with bilateral lower extremity edema and worsening shortness of breath, cardiology evaluated the patient, BNP within normal limits. No congestion on chest x-ray. LE Edema, Probably due to tricuspid regurgitation and pulmonary hypertension 11/19/2020; Cardiology evaluation noted, consider pulmonary evaluation if needed Discharge home when clinically stable, follow echocardiogram 11/20/20: Continue IV diuresis, follow 2D echocardiogram result, cardiology following. Patient on hospice service at home. 21: 2D echo with preserved EF, continue IV diuresis, continue to have bilateral lower extremity edema. Follow clinically. Subjective Date of service: 11/21/20 Interval history: Patient seen and examined. Medical records and medication list reviewed. No acute event overnight noted by the RN. Patient denies any chest pain or difficulty breathing. Patient is tolerating diet. Patient continues to complains of bilateral lower extremity edema Discussed plan of care at bedside with patient. Objective - Exam Narrative Exam: GENERAL: well-developed and well-nourished elderly -[place] female lying on bed appeared to be in no discomfort. HEENT: Normocephalic. Atraumatic. No conjunctival congestion or icterus. Patient has moist mucous membranes. NECK: Supple. Trachea midline. CHEST/LUNGS: Clear to auscultated bilaterally, breathing nonlabored. No wheezes crackles or rhonchi. HEART/CARDIOVASCULAR: Regular in rate and rhythm. S1 and S2 positive. ABDOMEN: Abdomen is soft, nontender. Patient has normal bowel sounds. SKIN: There is no rash. Warm and dry. NEURO: No focal motor deficit. Follows command. MUSCULOSKELETAL: No joint effusion or tenderness. EXTRIMITY: +ve b/l edema, no cyanosis or clubbing. PSYCH: Cooperative. - Constitutional Vitals: Vital Signs - 12hr 11/21/20 11/21/20 11/21/20 15:27 19:17 19:25 Temperature 99.1 F 98.6 F Pulse Rate 73 84 Pulse Rate [ Anterior Throughout] Respiratory 16 19 Rate Respiratory Rate [Anterior Throughout] Blood Pressure 107/49 120/62 O2 Sat by Pulse 100 99 100 Oximetry 11/21/20 21:08 Temperature Pulse Rate Pulse Rate [ 79 Anterior Throughout] Respiratory Rate Respiratory 18 Rate [Anterior Throughout] Blood Pressure O2 Sat by Pulse 97 Oximetry - Labs CBC & Chem 7: 11/19/20 04:06 11/20/20 05:13 HEART Score - HEART Score EKG: Non-specific Age: > 65 Risk factors: > 3 risk factors or hx of atherosclerotic disease Troponin: Troponin T < 0.010 ng/mL (0.00-0.029) 11/18/20 20:15 Troponin: < normal limit - Critical Actions Critical Actions: 4-6 pts:12-16.6% risk of adverse cardiac event. Should be admitted
[2020-11-22 04:34] VITALS: BP 126/62
[2020-11-22] MEDS: FUROSEMIDE 40 MG/4 ML INJ IV SCH (06:07)
[2020-11-22] MEDS: BENZONATATE 100 MG CAP PO SCH ×2 (06:07→13:37)
[2020-11-22] MEDS: ARFORMOTEROL 15 MCG/2 ML NEBU IH SCH (09:37)
[2020-11-22] MEDS: BUDESONIDE 0.5 MG/2 ML NEBU IH SCH (09:37)
[2020-11-22] MEDS: IPRATROPIUM/ALBUTEROL SULFATE 3 ML AMPUL.NEB IH SCH ×2 (09:38→14:09)
--- NOTE | 2020-11-22 12:13 | Progress Note ---
Assessment and Plan - Patient Problems (1) Edema Current Visit: Yes Status: Acute Plan to address problem: Cardiac status is stable and asymptomatic, continue medical therapy for venous hypertension as previously outlined. (2) Paroxysmal atrial fibrillation Current Visit: Yes Status: Acute Plan to address problem: Medical therapy as previously outlined for paroxysmal atrial fibrillation, we have recommended half dose of Eliquis to accommodate the patient's high bleeding risk. (3) Coronary artery disease Current Visit: Yes Status: Acute Plan to address problem: Medical therapy for asymptomatic, chronic coronary artery disease. Subjective Date of service: 11/22/20 Interval history: Patient is comfortable, no acute distress. No new cardiac complaints. Objective Vital Signs Temp Pulse Pulse Resp Resp BP Pulse Ox 11/22/20 10:11 70 18 11/22/20 09:40 98 11/22/20 04:24 98.6 F 79 18 126/62 100 11/22/20 02:52 80 11/21/20 23:05 98.5 F 82 18 97/50 98 11/21/20 21:08 79 18 97 11/21/20 20:00 80 96 11/21/20 19:25 100 11/21/20 19:17 98.6 F 84 19 120/62 99 11/21/20 15:27 99.1 F 73 16 107/49 100 - Physical Examination General: No Apparent Distress, Other (Frail, elderly) HEENT: Positive: PERRL Neck: Positive: neck supple Cardiac: Positive: Reg Rate and Rhythm Lungs: Positive: Decreased Breath Sounds Neuro: Positive: Weakness (Generalized lethargy) Abdomen: Positive: Soft Skin: Positive: Clear Extremities: Present: edema (Trace)
--- NOTE | 2020-11-22 13:12 | Discharge Summary ---
Providers - Providers Date of Admission: 11/19/20 14:40 Date of discharge: 11/22/20 Attending physician: DILLON LATIF 11/18/20 23:19 Consult to Physician [CONS] Routine Comment: Consulting Provider: NELDA STEVENS Physician Instructions: Reason For Exam: chf Primary care physician: ARCADE TECHNICIAN Hospitalization Condition: Stable Pertinent studies: Chest x-ray, lower extremity venous Doppler, 2D echocardiogram Hospital course: The patient is a frail, elderly 85-year-old woman with progressive dementia, paroxysmal atrial fibrillation on Eliquis and coronary artery disease for which she underwent a three-vessel coronary artery bypass in the year 1999 was brought to the emergency room with complaints of lower extremity edema. There was no chest pain or unusual shortness of breath reported. EKG is normal sinus rhythm with nonspecific T wave changes. Chest x-ray reveals a normal-sized c ardiac silhouette, chronic interstitial lung changes, but no interstitial edema. 2D echo obtained and showed preserved EF. Cardiology was consulted and recommended medical management. Patient was admitted to telemetry floor with scheduled iv diuretics. Monitored with serial CE, EKG, Provided cardiac diet, daily weights, monitored in's and O's. Patients symptom improved with medical management. Patient was then discharged home with hospice in stable condition with outpt f/u. Disposition: 50 HOSPICE/HOME Final Discharge Diagnosis (Prints w/discharge instructions): -- Acute exacerbation of chronic systolic congestive heart failure. -- COPD exacerbation. --Bilateral lower extremity edema. --Paroxysmal atrial fibri llation. --CAD (coronary artery disease). -- GERD (gastroesophageal reflux disease). --Bilateral community-acquired pneumonia Time spent for discharge: 34 minutes Core Measure Documentation - Palliative Care Palliative Care/ Comfort Measures: Hospice Care - Core Measures Any of the following diagnoses?: heart failure - Heart Failure Discharge Requirements AMAURI/ARB for LVSD if EF <40%: Not Applicable Beta everette at discharge: Yes Exam - Physical Exam Narrative exam: GENERAL: well-developed and well-nourished elderly -[place] female lying on bed appeared to be in no discomfort. HEENT: Normocephalic. Atraumatic. No conjunctival congestion or icterus. Patient has moist mucous membranes. NECK: Supple. Trachea midline. CHEST/LUNGS: Clear to auscultated bilaterally, breathing nonlabored. No wheezes crackles or rhonchi. HEART/CARDIOVASCULAR: Regular in rate and rhythm. S1 and S2 positive. ABDOMEN: Abdomen is soft, nontender. Patient has normal bowel sounds. SKIN: There is no rash. Warm and dry. NEURO: No focal motor deficit. Follows command. MUSCULOSKELETAL: No joint effusion or tenderness. EXTRIMITY: +ve b/l edema, no cyanosis or clubbing. PSYCH: Cooperative. - Constitutional Vitals: Temp Pulse Resp BP Pulse Ox 98.6 F 70 18 126/62 98 11/22/20 04:24 11/22/20 10:11 11/22/20 10:11 11/22/20 04:24 11/22/20 09:40 Plan Activity: fall precautions Weight Bearing Status: Non-Weight Bearing Diet: low fat, low salt Special Instructions: restrict fluid intake to (1.5L per day) Follow up with: TAMERA HIRSCH MD [Primary Care Provider] - 3-5 Days ERNA INFANTE MD [Staff Physician] - 7 Days
[2020-11-22] MEDS: FAMOTIDINE 20 MG TAB PO SCH (13:34)
[2020-11-22] MEDS: RANOLAZINE ER 500 MG TAB 12HR PO SCH (13:34)
[2020-11-22] MEDS: carvediloL 3.125 MG TAB PO SCH (13:34)
[2020-11-22] MEDS: OXYBUTYNIN 5 MG TAB PO SCH (13:36)
[2020-11-22] MEDS: APIXABAN 5 MG TAB PO SCH (13:36)
== END 2020-11-22 17:47 | disposition hospice, home (50) | DRG 291 ==
LOC: ED 18:56 → 4A 11-19 04:46 → OBSVTOIN 11-19 14:40 → 4A 11-19 22:24
PROVIDERS: ADMIT Hospitalist; ATTEND Internal Medicine
DX: I11.0 Hypertensive heart disease with heart failure (principal); J18.9 Pneumonia, unspecified organism; I50.23 Acute on chronic systolic (congestive) heart failure; I48.11 Longstanding persistent atrial fibrillation; J44.1 Chronic obstructive pulmonary disease with (acute) exacerbation; I25.10 Atherosclerotic heart disease of native coronary artery without angina pectoris; E11.9 Type 2 diabetes mellitus without complications; K21.9 Gastro-esophageal reflux disease without esophagitis; E83.42 Hypomagnesemia; E78.5 Hyperlipidemia, unspecified; I48.0 Paroxysmal atrial fibrillation; D64.9 Anemia, unspecified; Z90.710 Acquired absence of both cervix and uterus; Z95.1 Presence of aortocoronary bypass graft; Z90.49 Acquired absence of other specified parts of digestive tract
CPT/HCPCS: 36415; 71045; 80048; 81001; 82140; 82550; 83735; 83880; 84443; 84484; 85025; 85610; 85730; 87040; 87086; 93005; 93306; 93970; 94640; G0378; C9113; J1170; J1940; J1956; J2930; J3475; U0003

== ENCOUNTER 2021-02-09 18:33 | Emergency (ER) | payer MEDICARE ==
[2021-02-09] MEDS ORDERED: ASPIRIN 325 MG TAB PO ONE (21:11)
[2021-02-09] MEDS ORDERED: FUROSEMIDE 40 MG/4 ML INJ IV ONE (21:13)
[2021-02-09] MEDS ORDERED: HYDROcodone/ACETAMINOPHEN 5-325 MG TAB PO ONE (21:13)
--- NOTE | 2021-02-09 21:16 | Emergency Department Report ---
ED General Adult HPI - General Chief complaint: Extremity Problem,Nontraumatic Stated complaint: bilateral leg swelling Time Seen by Provider: 02/09/21 21:04 Source: EMS Mode of arrival: Stretcher Limitations: No Limitations - History of Present Illness Initial comments: Patient is a 85-year-old F Pakistani female with past medical history of COPD pulmonary hypertension coronary artery disease status post three-vessel CABG in 1999 and atrial fibrillation who is presenting with leg swelling. Patient is a poor historian secondary to some likely dementia. Patient states her legs are swollen and her knees hurt. Denies any trauma. Patient with after asking does endorse some chest pain shortness of breath as well. This is not her initial complaint. Denies any nausea vomiting diarrhea fevers or chills at this time. Patient Name: RUDOLPH LEE Date of : 1935 Patient Status: Inpatient Attending Provider: DILLON LATIF Date: 11/21/20 13:00 Initialization Date: 11/22/20 00:00 Assessment and Plan --Bilateral lower extremity edema; Due to pulmonary hypertension Edema probably due to right-sided fluid overload from tricuspid regurgitation and pulmonary hypertension.Continue diuretics, low-sodium diet low-sodium diet 2D echo showed preserved EF --Pneumonia bilateral, likely CAP Oxygen via nasal cannula 3 L/min. DuoNeb by nebulizer every 4 hours. Albuterol via nebulizer every 4 hours as needed. Levaquin 750 mg IV daily. neg blood culture , COVID-19 negative -- COPD exacerbation Oxygen per nasal cannula 3 L/min. DuoNeb by nebulizer every 4 hours. Albuterol via nebulizer every 4 hours as needed. We will monitor the patient closely Consider pulmonary evaluation if needed --Chest pain, likely due to GERD Aspirin 81 mg p.o. daily. Lipitor 20 mg p.o. daily. Eliquis 5 mg p.o. twice daily. neg serial cardiac enzymes. preserved EF on 2d echocardiogram. Cardiology consult --Atrial fibrillation, paroxysmal Eliquis 5 mg p.o. twice daily. Beta-blockers --CAD (coronary artery disease) Hx of CAD with 3 vessel bypass surgery in 1999 Continue aspirin, beta-blockers statin,Ranexa Follow-up echocardiogram, cardiology evaluation noted and appreciated -- GERD (gastroesophageal reflux disease), cont Pepcid --Hypomagnesemia, replete and monitor --Full code -- DVT prophylaxis Eliquis 5 mg p.o. twice daily for DVT prophylaxis. Severity scale (0 -10): 2 - Related Data Home Medications Medication Instructions Recorded Confirmed Last Taken Albuterol Mdi (or & Nicu Only) 2 puff PO BID PRN 11/19/20 11/19/20 Unknown [ProAir HFA Inhaler] Cholecalciferol Vit D3 [Vitamin D3 1,000 unit PO QDAY 11/19/20 11/19/20 Unknown 1,000 UNIT TAB] Fluticasone/Salmeterol [Advair 1 puff IH BID 11/19/20 11/19/20 Unknown Diskus 250-50 mcg] Ranolazine [Ranexa] 500 mg PO BID 11/19/20 11/19/20 Unknown Temazepam [Restoril] 15 mg PO QHS PRN 11/19/20 11/19/20 Unknown Tolterodine (Nf) [Detrol LA] 4 mg PO QDAY 11/19/20 11/19/20 Unknown Previous Rx's Medication Instructions Recorded Last Taken Type Apixaban [Eliquis] 5 mg PO Q12HR #60 tablet 04/29/20 08/01/20 Rx AtorvaSTATin [Lipitor] 20 mg PO QHS #30 tablet 04/29/20 08/01/20 Rx Pantoprazole [Protonix TAB] 20 mg PO QDAY #30 tablet. 04/29/20 08/01/20 Rx allopurinoL [Zyloprim] 200 mg PO QDAY #30 tablet 04/29/20 08/01/20 Rx carvediloL [Coreg] 3.125 mg PO Q12H #60 tablet 04/29/20 08/01/20 Rx Oxybutynin [Ditropan] 5 mg PO TID tablet 11/22/20 Unknown Rx Furosemide [Lasix TAB] 40 mg PO QDAY #30 tablet 02/10/21 Unknown Rx Allergies Allergy/AdvReac Type Severity Reaction Status Date / Time Penicillins Allergy Severe EVRYTHING Verified 11/19/20 10:58 SWELLS Sulfa (Sulfonamide Allergy Mild Itching Verified 08/02/20 01:06 Antibiotics) azithromycin [From Zithromax] Allergy Itching Verified 08/02/20 01:06 iv dye Allergy Shortness Uncoded 11/19/20 10:58 of Breath ED Review of Systems ROS: Stated complaint: bilateral leg swelling Other details as noted in HPI Comment: All other systems reviewed and negative ED Past Medical Hx - Past Medical History Hx Hypertension: Yes Hx Heart Attack/AMI: Yes Hx Congestive Heart Failure: No Hx Deep Vein Thrombosis: No Hx Pulmonary Embolism: No Hx Arthritis: Yes Hx Asthma: No Hx COPD: Yes Hx Tuberculosis: No Hx HIV: No Additional medical history: Pulmonary hypertension. angina, gout. cad - Surgical History Hx Coronary Stent: Yes Hx Open Heart Surgery: Yes Hx Pacemaker: No Hx Internal Defibrillator: No Hx Cholecystectomy: Yes Hx Appendectomy: No Hx Breast Surgery: No Additional Surgical History: hysterectomy. CABG. - Social History Smoking Status: Never Smoker - Medications Home Medications: Home Medications Medication Instructions Recorded Confirmed Last Taken Type Apixaban [Eliquis] 5 mg PO Q12HR #60 tablet 04/29/20 11/19/20 08/01/20 Rx AtorvaSTATin [Lipitor] 20 mg PO QHS #30 tablet 04/29/20 11/19/20 08/01/20 Rx Pantoprazole [Protonix TAB] 20 mg PO QDAY #30 tablet. 04/29/20 11/19/20 08/01/20 Rx allopurinoL [Zyloprim] 200 mg PO QDAY #30 tablet 04/29/20 11/19/20 08/01/20 Rx carvediloL [Coreg] 3.125 mg PO Q12H #60 tablet 04/29/20 11/19/20 08/01/20 Rx Albuterol Mdi (or & Nicu Only) 2 puff PO BID PRN 11/19/20 11/19/20 Unknown History [ProAir HFA Inhaler] Cholecalciferol Vit D3 [Vitamin D3 1,000 unit PO QDAY 11/19/20 11/19/20 Unknown History 1,000 UNIT TAB] Fluticasone/Salmeterol [Advair 1 puff IH BID 11/19/20 11/19/20 Unknown History Diskus 250-50 mcg] Ranolazine [Ranexa] 500 mg PO BID 11/19/20 11/19/20 Unknown History Temazepam [Restoril] 15 mg PO QHS PRN 11/19/20 11/19/20 Unknown History Tolterodine (Nf) [Detrol LA] 4 mg PO QDAY 11/19/20 11/19/20 Unknown History Oxybutynin [Ditropan] 5 mg PO TID tablet 11/22/20 Unknown Rx Furosemide [Lasix TAB] 40 mg PO QDAY #30 tablet 02/10/21 Unknown Rx ED Physical Exam - General Limitations: No Limitations General appearance: alert, in no apparent distress - Head Head exam: Present: atraumatic, normocephalic - Eye Eye exam: Present: normal appearance - ENT ENT exam: Present: mucous membranes moist - Neck Neck exam: Present: normal inspection - Respiratory Respiratory exam: Present: rales, other. Absent: normal lung sounds bilaterally, respiratory distress, wheezes, rhonchi, stridor - Cardiovascular Cardiovascular Exam: Present: regular rate, normal rhythm, normal heart sounds. Absent: systolic murmur, diastolic murmur, rubs, gallop - GI/Abdominal GI/Abdominal exam: Present: soft, normal bowel sounds. Absent: distended, tenderness, guarding - Extremities Exam Extremities exam: Present: normal inspection, other (3+ edema to the bilateral lower extremities) - Back Exam Back exam: Present: normal inspection - Neurological Exam Neurological exam: Present: alert, oriented X3 - Psychiatric Psychiatric exam: Present: normal affect, normal mood - Skin Skin exam: Present: warm, dry, intact, normal color. Absent: rash ED Course Vital Signs 02/09/21 02/09/21 02/09/21 18:35 21:52 23:07 Temperature 98.2 F Pulse Rate 95 H Respiratory 16 16 12 Rate Blood Pressure 122/60 Blood Pressure 129/61 [Left] O2 Sat by Pulse 96 96 97 Oximetry ED Medical Decision Making - Lab Data Result diagrams: 02/09/21 21:44 02/09/21 21:44 Lab Results 02/09/21 02/09/21 02/09/21 Range/Units 21:44 21:44 21:44 WBC 4.9 (4.5-11.0) K/mm3 RBC 3.17 L (3.65-5.03) M/mm3 Hgb 9.0 L (10.1-14.3) gm/dl Hct 29.0 L (30.3-42.9) % MCV 92 (79-97) fl MCH 28 (28-32) pg MCHC 31 (30-34) % RDW 24.6 H (13.2-15.2) % Plt Count 179 (140-440) K/mm3 Lymph % (Auto) 20.9 (13.4-35.0) % Bond % (Auto) 7.1 (0.0-7.3) % Eos % (Auto) 0.3 (0.0-4.3) % Baso % (Auto) 0.9 (0.0-1.8) % Lymph # (Auto) 1.0 L (1.2-5.4) K/mm3 Bond # (Auto) 0.3 (0.0-0.8) K/mm3 Eos # (Auto) 0.0 (0.0-0.4) K/mm3 Baso # (Auto) 0.0 (0.0-0.1) K/mm3 Seg Neutrophils % 70.8 H (40.0-70.0) % Seg Neutrophils # 3.4 (1.8-7.7) K/mm3 PT 18.3 H (12.2-14.9) Sec. INR 1.37 H (0.87-1.13) APTT 38.5 H (24.2-36.6) Sec. Sodium 136 L (137-145) mmol/L Potassium 3.3 L (3.6-5.0) mmol/L Chloride 104.2 (98-107) mmol/L Carbon Dioxide 23 (22-30) mmol/L Anion Gap 12 mmol/L BUN 15 (7-17) mg/dL Creatinine 0.6 (0.6-1.2) mg/dL Estimated GFR > 60 ml/min BUN/Creatinine Ratio 25 % Glucose 92 (65-100) mg/dL Calcium 8.2 L (8.4-10.2) mg/dL Troponin T 0.020 (0.00-0.029) ng/mL NT-Pro-B Natriuret Pep (0-900) pg/mL 02/09/21 Range/Units 21:44 WBC (4.5-11.0) K/mm3 RBC (3.65-5.03) M/mm3 Hgb (10.1-14.3) gm/dl Hct (30.3-42.9) % MCV (79-97) fl MCH (28-32) pg MCHC (30-34) % RDW (13.2-15.2) % Plt Count (140-440) K/mm3 Lymph % (Auto) (13.4-35.0) % Bond % (Auto) (0.0-7.3) % Eos % (Auto) (0.0-4.3) % Baso % (Auto) (0.0-1.8) % Lymph # (Auto) (1.2-5.4) K/mm3 Bond # (Auto) (0.0-0.8) K/mm3 Eos # (Auto) (0.0-0.4) K/mm3 Baso # (Auto) (0.0-0.1) K/mm3 Seg Neutrophils % (40.0-70.0) % Seg Neutrophils # (1.8-7.7) K/mm3 PT (12.2-14.9) Sec. INR (0.87-1.13) APTT (24.2-36.6) Sec. Sodium (137-145) mmol/L Potassium (3.6-5.0) mmol/L Chloride (98-107) mmol/L Carbon Dioxide (22-30) mmol/L Anion Gap mmol/L BUN (7-17) mg/dL Creatinine (0.6-1.2) mg/dL Estimated GFR ml/min BUN/Creatinine Ratio % Glucose (65-100) mg/dL Calcium (8.4-10.2) mg/dL Troponin T (0.00-0.029) ng/mL NT-Pro-B Natriuret Pep 643.1 (0-900) pg/mL - EKG Data -: EKG Interpreted by Ga - EKG Data 02/09/21 23:51 EKG shows sinus tachycardia 105. [place] normal intervals occasional PAC no ST segment elevation or depressions. - Radiology Data CHEST 1 VIEW 02/09/2021 8:32 PM INDICATION / CLINICAL INFORMATION: shortness of breath. COMPARISON: 11/18/2020 FINDINGS: SUPPORT DEVICES: None. HEART / MEDIASTINUM: Increased interstitial prominence and opacities in bilateral lungs LUNGS / PLEURA: Persistent No pneumothorax. ADDITIONAL FINDINGS: No significant additional findings. IMPRESSION: 1. Diffuse bilateral interstitial pulmonary opacities persist and appear similar to November 2020 Signer Name: Roshan Juarez MD Signed: 02/09/2021 9:38 PM Workstation Name: [id number] - Medical Decision Making Patient is a 85-year-old F Pakistani female with past medical history of pulmonary hypertension who is presenting with a chief complaint of lower extremity edema. States that over the last several days she has had increased swelling to her bilateral lower extremities. Patient does have some rails but is not endorsing any shortness of breath and the patient is 100% on room air. Patient given IV Lasix. Reviewed the patient's medication list I do not see that the patient is on Lasix at this time. Patient is unsure. Prescription for Lasix will be given to help the patient diuresis. Critical care attestation.: If time is entered above; I have spent that time in minutes in the direct care of this critically ill patient, excluding procedure time. ED Disposition Clinical Impression: Pulmonary hypertension, Edema Disposition: HOME / SELF CARE / HOMELESS Is pt being admited?: No Does the pt Need Aspirin: No Condition: Stable Instructions: Edema, Pulmonary Hypertension Prescriptions: Furosemide [Lasix TAB] 40 mg PO QDAY #30 tablet Referrals: PRIMARY CARE, [Primary Care Provider] - 3-5 Days Time of Disposition: 00:29
--- NOTE | 2021-02-09 21:42 | XRay Report ---
CHEST 1 VIEW 02/09/2021 8:32 PM INDICATION / CLINICAL INFORMATION: shortness of breath. COMPARISON: 11/18/2020 FINDINGS: SUPPORT DEVICES: None. HEART / MEDIASTINUM: Increased interstitial prominence and opacities in bilateral lungs LUNGS / PLEURA: Persistent No pneumothorax. ADDITIONAL FINDINGS: No significant additional findings. IMPRESSION: 1. Diffuse bilateral interstitial pulmonary opacities persist and appear similar to November 2020 Signer Name: Roshan Juarez MD Signed: 02/09/2021 9:38 PM Workstation Name: [email or web address]
[2021-02-09 22:55] LABS: Basophils % (Auto) 0.9 % (0.0-1.8); Eosinophils % (Auto) 0.3 % (0.0-4.3); Lymphocytes % (Auto) 20.9 % (13.4-35.0); Mean Corpuscular HGB Conc 31 % (30-34); Mean Corpuscular Volume 92 fl (79-97); Monocytes # (Auto) 0.3 K/mm3 (0.0-0.8); Monocytes % (Auto) 7.1 % (0.0-7.3); Platelet Count 179 K/mm3 (140-440); Red Blood Count 3.17 M/mm3 (3.65-5.03)
[2021-02-09 22:57] LABS: Red Cell Distribution Width 24.6 % (13.2-15.2)
[2021-02-09 23:06] LABS: INR 1.37 (0.87-1.13)
[2021-02-09 23:07] LABS: Partial Thromboplastin Time 38.5 Sec. (24.2-36.6)
[2021-02-09 23:09] LABS: Blood Urea Nitrogen 15 mg/dL (7-17); Calcium 8.2 mg/dL (8.4-10.2); Hemolysis Index 13
[2021-02-09 23:13] LABS: BUN/Creatinine Ratio 25
[2021-02-10] MEDS ORDERED: FUROSEMIDE 20 MG/2 ML INJ IV ONE (00:06)
[2021-02-10 06:03] VITALS: BP 110/56
--- NOTE | 2021-02-10 10:59 | Electrocardiograph Report ---
[facility] Test Date: 2021-02-09 Test Time: 21:25:25 Pat Name: RUDOLPH LEE Department: Room: Gender: F Roofer Assistant: BIBI : 1935 Requested By: SHASTA TOMLINSON Order Number: [id number] Reading MD: Pj Sanon Measurements Intervals [place] Rate: 105 P: 48 DE: 145 QRS: -6 QRSD: 122 T: 207 QT: 346 QTc: 457 Interpretive Statements Sinus tachycardia Atrial premature complex Nonspecific intraventricular conduction delay Compared to ECG 11/18/2020 20:28:24 Atrial premature complex(es) now present Intraventricular conduction delay now present Electronically Signed On 02-10-2021 10:59:42 EST by Pj Sanon
== END 2021-02-10 02:42 | disposition home or self-care (01) ==
LOC: ED 18:33
DX: I27.20 Pulmonary hypertension, unspecified (principal); R60.0 Localized edema; J44.9 Chronic obstructive pulmonary disease, unspecified; M19.90 Unspecified osteoarthritis, unspecified site; Z90.710 Acquired absence of both cervix and uterus; Z88.0 Allergy status to penicillin; Z88.2 Allergy status to sulfonamides; Z88.1 Allergy status to other antibiotic agents; Z79.899 Other long term (current) drug therapy
CPT/HCPCS: 36415; 71045; 80048; 83880; 84484; 85025; 85610; 85730; 93005; 96374; 96376; 99284; J1940; 96375